=== PATIENT | female | born 1990 | race Hispanic/Latino ===

== ENCOUNTER 2018-08-31 07:22 | Emergency (ER) | payer SELFPAY ==
[2018-08-31 07:58] LABS: BASOPHILS % (AUTO) 0.5 % (0.0-5.0); EOSINOPHILS % (AUTO) 3.9 % (0.0-8.0); HEMATOCRIT 42.1 % (36-48); LYMPHOCYTES % (AUTO) 32.7 % (21.0-51.0); MEAN CORPUSCULAR HEMOGLOBIN 30.6 pg (27.0-33.0); MEAN CORPUSCULAR HGB CONC 34.3 g/dL (32.0-36.0); MEAN CORPUSCULAR VOLUME 89.4 fL (79-99); MONOCYTES % (AUTO) 5.4 % (3.0-13.0); NEUTROPHILS % (AUTO) 57.5 % (40.0-77.0); PLATELET COUNT (AUTO) 218 K/uL (130-400); RED BLOOD CELL COUNT(AUTO) 4.71 MIL/uL (4.00-5.50); WHITE BLOOD COUNT (AUTO) 13.3 K/uL (4.8-10.8)
[2018-08-31 08:02] LABS: APPEARANCE,URINE Clear (CLEAR); BILIRUBIN,URINE Negative (NEGATIVE); COLOR,URINE Yellow (YELLOW); GLUCOSE, URINE (UA) Negative (NEGATIVE); KETONES,URINE Negative (NEGATIVE); LEUKOCYTE ESTERASE ,URINE Moderate (NEGATIVE); NITRATE,URINE Negative (NEGATIVE); OCCULT BLOOD,URINE Negative (NEGATIVE); PROTEIN,URINE Negative (NEGATIVE)
[2018-08-31 08:07] LABS: CREATININE 0.9 mg/dL (0.5-1.5); POTASSIUM 3.5 mmol/L (3.5-5.1)
[2018-08-31 08:08] LABS: HCG,QUAL RESULT NEGATIVE (NEGATIVE)
[2018-08-31 08:14] LABS: ALBUMIN 3.7 g/dL (3.5-5.0); BILIRUBIN,TOTAL 0.2 mg/dL (0.2-1.0); TOTAL PROTEIN, SERUM 7.3 g/dL (6.0-8.3)
[2018-08-31 08:16] LABS: BACTERIA,URINE Rare /HPF (None Seen); RBC,URINE 0-1 /HPF (0-1); SQUAMOUS EPITHELIAL CELL,UR Few /HPF (0-2)
[2018-08-31] MEDS ORDERED: CEFTRIAXONE SODIUM 500 MG VIAL ONE (08:44)
[2018-08-31] MEDS ORDERED: AZITHROMYCIN 250 MG TABLET PO ONE (08:45)
[2018-08-31] MEDS ORDERED: LIDOCAINE HCL-MPF 1% 2ML VIAL ONE (08:47)
== END 2018-08-31 09:24 | disposition home or self-care (01) ==
LOC: EDH 07:22
DX: N39.0 Urinary tract infection, site not specified (principal); Z87.891 Personal history of nicotine dependence
CPT/HCPCS: 36415; 80053; 81001; 81025; 82150; 82550; 83690; 84484; 85025; 87088; 87210; 87486; 87797; 93005; 96372; 99284; J0696; J3490

== ENCOUNTER 2019-02-07 11:48 | Emergency (ER) | payer OTHER ==
[2019-02-07] MEDS ORDERED: MAG HYDROX/AL HYDROX/SIMETH ES 30 ML SUSP UDCUP ONE (12:24)
[2019-02-07 12:39] LABS: BASOPHILS % (AUTO) 0.4 % (0.0-5.0); LYMPHOCYTES % (AUTO) 25.5 % (21.0-51.0); MEAN CORPUSCULAR HEMOGLOBIN 30.5 pg (27.0-33.0); MEAN CORPUSCULAR HGB CONC 34.2 g/dL (32.0-36.0); MEAN CORPUSCULAR VOLUME 89.3 fL (79-99); MONOCYTES % (AUTO) 3.9 % (3.0-13.0); NEUTROPHILS % (AUTO) 67.2 % (40.0-77.0); NUCLEATED RED BLOOD CELLS 0.1 % (0.0-0.19); PLATELET COUNT (AUTO) 225 K/uL (130-400); RED BLOOD CELL COUNT(AUTO) 4.82 MIL/uL (4.00-5.50); RED CELL DISTRIBUTION WIDTH 13.4 % (11.0-15.5); WHITE BLOOD COUNT (AUTO) 11.5 K/uL (4.8-10.8)
[2019-02-07 12:47] LABS: CREATININE 0.8 mg/dL (0.5-1.5); POTASSIUM 3.9 mmol/L (3.5-5.1)
[2019-02-07 12:50] LABS: APPEARANCE,URINE Clear (CLEAR); BILIRUBIN,URINE Negative (NEGATIVE); COLOR,URINE Yellow (YELLOW); GLUCOSE, URINE (UA) Negative (NEGATIVE); KETONES,URINE Negative (NEGATIVE); LEUKOCYTE ESTERASE ,URINE Small (NEGATIVE); NITRATE,URINE Negative (NEGATIVE); OCCULT BLOOD,URINE Negative (NEGATIVE); PROTEIN,URINE Negative (NEGATIVE); UROBILINOGEN,URINE 0.2 mg/dL (0.2-1.0)
[2019-02-07 12:51] LABS: ALBUMIN 3.9 g/dL (3.5-5.0); BILIRUBIN,TOTAL 0.4 mg/dL (0.2-1.0); TOTAL PROTEIN, SERUM 7.4 g/dL (6.0-8.3)
[2019-02-07 13:25] LABS: BACTERIA,URINE Few /HPF (None Seen); RBC,URINE None Seen /HPF (0-1); WBC,URINE 0-1 /HPF (0-1)
[2019-02-07 13:29] LABS: HCG,QUAL RESULT NEGATIVE (NEGATIVE)
== END 2019-02-07 13:56 | disposition home or self-care (01) ==
LOC: EDH 11:48
DX: K29.00 Acute gastritis without bleeding (principal); Z72.0 Tobacco use
CPT/HCPCS: 36415; 80053; 81001; 81025; 82150; 83690; 85025

== ENCOUNTER 2020-09-10 11:39 | Emergency (ER) | payer SELFPAY | END 2020-09-10 13:08 | disposition left against medical advice (07) | LOC: EDH 11:39 | DX: R10.9 Unspecified abdominal pain (principal); Z53.21 Procedure and treatment not carried out due to patient leaving prior to being seen by health care provider ==

== ENCOUNTER 2022-03-02 18:41 | Emergency (ER) | payer OTHER ==
[2022-03-02] MEDS ORDERED: 0.9%NACL 1000ML 1,000 ML IV SCH (19:00)
[2022-03-02] MEDS ORDERED: 0.9%NACL 1000ML 1,000 ML IV ONE (19:00)
[2022-03-02 20:03] LABS: BASOPHILS % (AUTO) 0.3 % (0.0-5.0); EOSINOPHILS % (AUTO) 0.8 % (0.0-8.0); HEMATOCRIT 50.9 % (36-48); LYMPHOCYTES % (AUTO) 16.9 % (21.0-51.0); MEAN CORPUSCULAR HEMOGLOBIN 30.3 pg (27.0-33.0); MEAN CORPUSCULAR HGB CONC 34.6 g/dL (32.0-36.0); MEAN CORPUSCULAR VOLUME 87.8 fL (79-99); MONOCYTES % (AUTO) 3.6 % (3.0-13.0); NEUTROPHILS % (AUTO) 77.9 % (40.0-77.0); PLATELET COUNT (AUTO) 279 K/uL (130-400); RED CELL DISTRIBUTION WIDTH 12.9 % (11.0-15.5); WHITE BLOOD COUNT (AUTO) 19.2 K/uL (4.8-10.8)
[2022-03-02 20:13] LABS: CREATININE 1.3 mg/dL (0.5-1.5); POTASSIUM 4.1 mmol/L (3.5-5.1)
[2022-03-02 20:18] LABS: ALBUMIN 3.5 g/dL (3.5-5.0); TOTAL PROTEIN, SERUM 6.4 g/dL (6.0-8.3)
[2022-03-02 21:55] LABS: APPEARANCE,URINE CLOUDY (CLEAR); BILIRUBIN,URINE NEGATIVE (NEGATIVE); COLOR,URINE YELLOW (YELLOW); GLUCOSE, URINE (UA) NEGATIVE (NEGATIVE); KETONES,URINE NEGATIVE (NEGATIVE); LEUKOCYTE ESTERASE ,URINE 75 Leu/uL (NEGATIVE); NITRATE,URINE NEGATIVE (NEGATIVE); OCCULT BLOOD,URINE NEGATIVE (NEGATIVE); PH,URINE 6.5 (5.0-8.0); PROTEIN,URINE 10 mg/dL (NEGATIVE)
[2022-03-02 21:56] LABS: HCG,QUALITATIVE URINE NEGATIVE (NEGATIVE)
[2022-03-02 22:00] LABS: BACTERIA,URINE RARE /HPF (None Seen); HYALINE CASTS, URINE 0-1 /LPF (0-1 /LPF); MUCUS,URINE RARE LPF (None Seen); SQUAMOUS EPITHELIAL CELL,UR FEW /HPF (0-2)
[2022-03-02] MEDS ORDERED: 0.9%NACL 1000ML 2,500 ML IV ONE (22:00)
[2022-03-02] MEDS ORDERED: SULF1TAB42 PO (22:09)
[2022-03-02] MEDS ORDERED: CEFTRIAXONE 1G VIAL IVP ONE (22:30)
[2022-03-02] MEDS ORDERED: ACETAMINOPHEN 325 MG TAB ONE (22:40)
[2022-03-02] MEDS ORDERED: ACETAMINOPHEN 325 MG TAB PO ONE (23:00)
[2022-03-03] VITALS: BP 105/60
== END 2022-03-03 00:11 | disposition home or self-care (01) ==
LOC: EDH 18:41
DX: N39.0 Urinary tract infection, site not specified (principal); R55 Syncope and collapse
CPT/HCPCS: 99285; 96374; 96361; 70450; 71045; 84484; 80053; 85025; 85378; 87088; 81001; 81025; 36415; 93005 ×2; J7030; J0696

== ENCOUNTER 2023-02-10 23:28 | Emergency (ER) | payer OTHER ==
[~2023-02-10] VITALS: Ht 154.9 cm; Wt 93.0 kg
[~2023-02-10 23:28] MED LIST: SULF1TAB42 PO
[2023-02-11] MEDS ORDERED: 0.9%NACL 1000ML 1,000 ML IV ONE ×2 (01:00→02:00)
[2023-02-11] MEDS ORDERED: ONDANSETRON 4MG INJ IVP ONE (01:00)
[2023-02-11 01:16] LABS: BASOPHILS # (AUTO) 0.03 K/uL (0.00-0.20); BASOPHILS % (AUTO) 0.2 % (0.0-5.0); EOSINOPHILS # (AUTO) 0.03 K/uL (0.00-0.70); EOSINOPHILS % (AUTO) 0.2 % (0.0-8.0); HEMATOCRIT 42.5 % (36-48); IMMATURE GRANULOCYTE ABSOLUTE 0.04 K/uL (0-1); LYMPHOCYTES # (AUTO) 2.6 K/uL (1.0-4.8); MEAN CORPUSCULAR HEMOGLOBIN 29.9 pg (27.0-33.0); MEAN CORPUSCULAR HGB CONC 34.4 g/dL (32.0-36.0); MEAN CORPUSCULAR VOLUME 86.9 fL (79-99); MONOCYTES # (AUTO) 0.7 K/uL (0.1-1.0); MONOCYTES % (AUTO) 4.4 % (3.0-13.0); NEUTROPHILS % (AUTO) 77.9 % (40.0-77.0); PLATELET COUNT (AUTO) 260 K/uL (130-400); RED BLOOD CELL COUNT(AUTO) 4.89 MIL/uL (4.00-5.50); RED CELL DISTRIBUTION WIDTH 12.5 % (11.0-15.5); WHITE BLOOD COUNT (AUTO) 15.4 K/uL (4.8-10.8)
[2023-02-11 01:23] LABS: CREATININE 0.9 mg/dL (0.5-1.5); POTASSIUM 3.5 mmol/L (3.5-5.1)
[2023-02-11 01:26] LABS: APPEARANCE,URINE CLOUDY (CLEAR); BILIRUBIN,URINE NEGATIVE (NEGATIVE); COLOR,URINE LIGHT-ORANGE (YELLOW); GLUCOSE, URINE (UA) NEGATIVE (NEGATIVE); KETONES,URINE NEGATIVE (NEGATIVE); LEUKOCYTE ESTERASE ,URINE 500 Leu/uL (NEGATIVE); NITRATE,URINE NEGATIVE (NEGATIVE); OCCULT BLOOD,URINE LARGE (NEGATIVE); PROTEIN,URINE 30 mg/dL (NEGATIVE); UROBILINOGEN,URINE 0.2 mg/dL (0.2-1.0)
[2023-02-11 01:27] LABS: ADD UA MICROSCOPIC YES
[2023-02-11 01:28] LABS: BACTERIA,URINE RARE /HPF (None Seen); HCG,QUALITATIVE URINE NEGATIVE (NEGATIVE); RBC,URINE TNTC /HPF (0-1); SQUAMOUS EPITHELIAL CELL,UR FEW /HPF (0-2); WBC,URINE 51-100 /HPF (0-1)
[2023-02-11 01:28] LABS: ALBUMIN 4.1 g/dL (3.5-5.0); BILIRUBIN,TOTAL 0.2 mg/dL (0.2-1.0)
[2023-02-11 01:31] LABS: SARS-CoV-2, RNA, NAAT NEGATIVE SARS CoV-2 (NEGATIVE)
[2023-02-11 01:34] LABS: INFLUENZA TYPE A Negative For Type A (NEGATIVE); INFLUENZA TYPE B Negative For Type B (NEGATIVE)
[2023-02-11] MEDS ORDERED: FAMOTIDINE 20MG VIAL IV ONE (02:00)
[2023-02-11] MEDS ORDERED: MORPHINE 4 MG SYG IVP ONE (02:00)
[2023-02-11] MEDS ORDERED: CEPH500B PO (03:02)
[2023-02-11] MEDS ORDERED: PANT40TA PO (03:02)
[2023-02-11] MEDS ORDERED: METO-296 PO (03:02)
[2023-02-11 03:11] VITALS: BP 127/76; PULSE 81; RESP 16; O2SAT 98
[2023-02-11] MEDS ORDERED: CEFTRIAXONE 2GM VIAL IVPB ONE (03:30)
== END 2023-02-11 03:43 | disposition home or self-care (01) ==
LOC: EDH 23:28
DX: N39.0 Urinary tract infection, site not specified (principal); K29.70 Gastritis, unspecified, without bleeding; F17.200 Nicotine dependence, unspecified, uncomplicated; J45.909 Unspecified asthma, uncomplicated; Z20.822 Contact with and (suspected) exposure to COVID-19
CPT/HCPCS: 99285; 87635; 84484; 80053; 83690; 85025; 87088; 87804 ×2; 81001; 81025; 36415; 96365; 96375; 76705; 71045; 93005; C9803; J3490; J0696; J2405; J2270

== ENCOUNTER 2023-06-24 22:48 | Emergency (ER) | payer OTHER ==
[~2023-06-24] VITALS: Ht 154.9 cm; Wt 90.7 kg
[~2023-06-24 22:48] MED LIST changes: +CEPH500B PO; +METO-296 PO; +PANT40TA PO
[2023-06-24] MEDS ORDERED: ONDANSETRON ODT 4MG TAB SL ONE (23:00)
[2023-06-24] MEDS ORDERED: KETOROLAC 15MG/ML VIAL (15MG/ML) IM ONE (23:00)
[2023-06-24 23:15] LABS: BASOPHILS # (AUTO) 0.05 K/uL (0.00-0.20); BASOPHILS % (AUTO) 0.4 % (0.0-5.0); EOSINOPHILS % (AUTO) 2.2 % (0.0-8.0); HEMATOCRIT 43.5 % (36-48); IMMATURE GRANULOCYTE ABSOLUTE 0.04 K/uL (0-1); LYMPHOCYTES # (AUTO) 5.7 K/uL (1.0-4.8); MEAN CORPUSCULAR HEMOGLOBIN 29.5 pg (27.0-33.0); MEAN CORPUSCULAR HGB CONC 34.7 g/dL (32.0-36.0); MONOCYTES # (AUTO) 0.6 K/uL (0.1-1.0); MONOCYTES % (AUTO) 4.7 % (3.0-13.0); NEUTROPHILS # (AUTO) 6.8 K/uL (1.8-7.7); NEUTROPHILS % (AUTO) 50.4 % (40.0-77.0); PLATELET COUNT (AUTO) 283 K/uL (130-400); RED BLOOD CELL COUNT(AUTO) 5.12 MIL/uL (4.00-5.50); RED CELL DISTRIBUTION WIDTH 12.5 % (11.0-15.5); WHITE BLOOD COUNT (AUTO) 13.5 K/uL (4.8-10.8)
[2023-06-24 23:25] LABS: CREATININE 0.9 mg/dL (0.5-1.5); POTASSIUM 3.7 mmol/L (3.5-5.1)
[2023-06-24 23:30] LABS: ALBUMIN 3.8 g/dL (3.5-5.0); BILIRUBIN,TOTAL 0.2 mg/dL (0.2-1.0); TOTAL PROTEIN, SERUM 7.6 g/dL (6.0-8.3)
[2023-06-24 23:48] LABS: APPEARANCE,URINE CLOUDY (CLEAR); BILIRUBIN,URINE NEGATIVE (NEGATIVE); COLOR,URINE LIGHT-YELLOW (YELLOW); GLUCOSE, URINE (UA) NEGATIVE (NEGATIVE); KETONES,URINE NEGATIVE (NEGATIVE); LEUKOCYTE ESTERASE ,URINE 75 Leu/uL (NEGATIVE); NITRATE,URINE NEGATIVE (NEGATIVE); OCCULT BLOOD,URINE LARGE (NEGATIVE); PROTEIN,URINE 10 mg/dL (NEGATIVE); UROBILINOGEN,URINE 0.2 mg/dL (0.2-1.0)
[2023-06-24 23:51] LABS: ADD UA MICROSCOPIC YES; HCG,QUALITATIVE URINE NEGATIVE (NEGATIVE)
[2023-06-24 23:53] LABS: RBC,URINE TNTC /HPF (0-1); SQUAMOUS EPITHELIAL CELL,UR MOD /HPF (0-2); UNCLASSIFIED CRYSTAL 6 /HPF (None Seen)
[2023-06-25] MEDS ORDERED: CEFTRIAXONE 1G VIAL IVPB ONE (00:30)
[2023-06-25] MEDS ORDERED: ONDANSETRON 4MG INJ IVP ONE (01:00)
[2023-06-25] MEDS ORDERED: MORPHINE 4 MG SYG IVP ONE (01:00)
[2023-06-25 01:12] LABS: BASOPHILS % (MANUAL) 1 % (0-2); LYMPHOCYTES % (MANUAL) 45 % (22-44); MAN.DIFF COMMENT-IMPRESSION MANUAL DIFFERENTIAL; MONOCYTES % (MANUAL) 4 % (2-9); SEGMENTED NEUTROPHILS % 50 % (40-70); TOTAL CELLS COUNTED 100
[2023-06-25] MEDS ORDERED: IOHEXOL-350 75 ML VIAL IV ONE (01:25)
[2023-06-25] MEDS ORDERED: TAMS-1 PO (02:45)
[2023-06-25] MEDS ORDERED: IBUP-1493 PO (02:45)
[2023-06-25 02:49] VITALS: BP 141/80; PULSE 80; RESP 14; O2SAT 98
== END 2023-06-25 02:57 | disposition home or self-care (01) ==
LOC: EDH 22:48
DX: N13.2 Hydronephrosis with renal and ureteral calculous obstruction (principal); F17.200 Nicotine dependence, unspecified, uncomplicated; J45.909 Unspecified asthma, uncomplicated; Z79.899 Other long term (current) drug therapy; Z98.890 Other specified postprocedural states
CPT/HCPCS: 99285; 84484; 80053; 83690; 85025; 87088; 81001; 81025; 36415; 93005; 74178; 96374; 96375; 96372; J0696; J2405; J2270; J1885; Q9967

== ENCOUNTER 2023-12-12 22:33 | Emergency (ER) | payer BC ==
[~2023-12-12] VITALS: Ht 154.9 cm; Wt 90.7 kg
[~2023-12-12 22:33] MED LIST changes: +AZIT250T9 PO; +IBUP-1493 PO; +PRED20TA3 PO; +TAMS-1 PO
[2023-12-12] MEDS: KETOROLAC 15MG/ML VIAL (15MG/ML) IM STA (23:29)
[2023-12-12 23:31] LABS: BASOPHILS # (AUTO) 0.04 K/uL (0.00-0.20); BASOPHILS % (AUTO) 0.3 % (0.0-5.0); EOSINOPHILS # (AUTO) 0.35 K/uL (0.00-0.70); EOSINOPHILS % (AUTO) 2.7 % (0.0-8.0); HEMATOCRIT 42.7 % (36-48); IMMATURE GRANULOCYTE ABSOLUTE 0.03 K/uL (0-1); LYMPHOCYTES # (AUTO) 4.2 K/uL (1.0-4.8); LYMPHOCYTES % (AUTO) 32.3 % (21.0-51.0); MEAN CORPUSCULAR HEMOGLOBIN 29.7 pg (27.0-33.0); MEAN CORPUSCULAR HGB CONC 34.2 g/dL (32.0-36.0); MONOCYTES # (AUTO) 0.7 K/uL (0.1-1.0); MONOCYTES % (AUTO) 5.2 % (3.0-13.0); NEUTROPHILS # (AUTO) 7.7 K/uL (1.8-7.7); NEUTROPHILS % (AUTO) 59.3 % (40.0-77.0); PLATELET COUNT (AUTO) 221 K/uL (130-400); RED BLOOD CELL COUNT(AUTO) 4.91 MIL/uL (4.00-5.50); RED CELL DISTRIBUTION WIDTH 12.4 % (11.0-15.5); WHITE BLOOD COUNT (AUTO) 12.9 K/uL (4.8-10.8)
[2023-12-12 23:41] LABS: CREATININE 0.8 mg/dL (0.5-1.0); POTASSIUM 3.8 mmol/L (3.5-5.1)
[2023-12-12 23:51] LABS: ALBUMIN 3.7 g/dL (3.5-5.0); BILIRUBIN,TOTAL 0.5 mg/dL (0.2-1.0); TOTAL PROTEIN, SERUM 7.2 g/dL (6.0-8.3)
[2023-12-13 00:23] LABS: ADD UA MICROSCOPIC NO; APPEARANCE,URINE CLEAR (CLEAR); BILIRUBIN,URINE NEGATIVE (NEGATIVE); COLOR,URINE YELLOW (YELLOW); GLUCOSE, URINE (UA) NEGATIVE (NEGATIVE); KETONES,URINE NEGATIVE (NEGATIVE); LEUKOCYTE ESTERASE ,URINE NEGATIVE Leu/uL (NEGATIVE); NITRATE,URINE NEGATIVE (NEGATIVE); OCCULT BLOOD,URINE NEGATIVE (NEGATIVE); PH,URINE 5.5 (5.0-8.0); PROTEIN,URINE NEGATIVE (NEGATIVE); UROBILINOGEN,URINE 0.2 mg/dL (0.2-1.0)
[2023-12-13] MEDS ORDERED: KETO10TA2 PO (01:39)
[2023-12-13] MEDS ORDERED: TAMS-1 PO (01:39)
[2023-12-13 02:05] VITALS: BP 145/95; PULSE 72; RESP 18; O2SAT 98
== END 2023-12-13 02:23 | disposition home or self-care (01) ==
LOC: EDH 22:33
DX: N20.0 Calculus of kidney (principal); R10.2 Pelvic and perineal pain; Z79.1 Long term (current) use of non-steroidal anti-inflammatories (NSAID); Z79.899 Other long term (current) drug therapy
CPT/HCPCS: 99285; 74176; 76705; 80053; 84702; 83690; 85025; 81003; 36415; 96372; J1885

== ENCOUNTER 2024-01-29 14:32 | Emergency (ER) | payer SELFPAY ==
[~2024-01-29] VITALS: Ht 154.9 cm; Wt 90.7 kg
[~2024-01-29 14:32] MED LIST changes: +KETO10TA2 PO
[2024-01-29 15:39] LABS: BASOPHILS # (AUTO) 0.04 K/uL (0.00-0.20); BASOPHILS % (AUTO) 0.3 % (0.0-5.0); EOSINOPHILS # (AUTO) 0.13 K/uL (0.00-0.70); EOSINOPHILS % (AUTO) 0.9 % (0.0-8.0); HEMATOCRIT 43.4 % (36-48); IMMATURE GRANULOCYTE ABSOLUTE 0.06 K/uL (0-1); LYMPHOCYTES # (AUTO) 3.9 K/uL (1.0-4.8); LYMPHOCYTES % (AUTO) 25.8 % (21.0-51.0); MEAN CORPUSCULAR HEMOGLOBIN 30.3 pg (27.0-33.0); MEAN CORPUSCULAR HGB CONC 34.6 g/dL (32.0-36.0); MEAN CORPUSCULAR VOLUME 87.7 fL (79-99); MONOCYTES # (AUTO) 0.8 K/uL (0.1-1.0); MONOCYTES % (AUTO) 5.2 % (3.0-13.0); NEUTROPHILS # (AUTO) 10.3 K/uL (1.8-7.7); NEUTROPHILS % (AUTO) 67.4 % (40.0-77.0); PLATELET COUNT (AUTO) 253 K/uL (130-400); RED BLOOD CELL COUNT(AUTO) 4.95 MIL/uL (4.00-5.50); WHITE BLOOD COUNT (AUTO) 15.2 K/uL (4.8-10.8)
[2024-01-29 15:48] LABS: CREATININE 0.9 mg/dL (0.5-1.0); POTASSIUM 4.1 mmol/L (3.5-5.1)
[2024-01-29 15:52] LABS: ALBUMIN 3.9 g/dL (3.5-5.0); BILIRUBIN,TOTAL 0.4 mg/dL (0.2-1.0); TOTAL PROTEIN, SERUM 7.5 g/dL (6.0-8.3)
[2024-01-29 17:23] VITALS: BP 132/65; PULSE 78; RESP 18; TEMP 98.8; O2SAT 97
== END 2024-01-29 17:44 | disposition home or self-care (01) ==
LOC: EDH 14:32
DX: O26.899 Other specified pregnancy related conditions, unspecified trimester (principal); M94.0 Chondrocostal junction syndrome [Tietze]; Z79.899 Other long term (current) drug therapy; Z87.442 Personal history of urinary calculi
CPT/HCPCS: 36415; 80053; 81025; 83735; 84484; 84703; 85025; 93005

== ENCOUNTER 2024-05-17 00:17 | Emergency (ER) | payer MEDICAID ==
[~2024-05-17] VITALS: Ht 154.9 cm; Wt 96.2 kg
[2024-05-17 00:55] LABS: BASOPHILS # (AUTO) 0.05 K/uL (0.00-0.20); BASOPHILS % (AUTO) 0.3 % (0.0-5.0); EOSINOPHILS # (AUTO) 0.15 K/uL (0.00-0.70); EOSINOPHILS % (AUTO) 0.9 % (0.0-8.0); HEMATOCRIT 41.1 % (36-48); IMMATURE GRANULOCYTE ABSOLUTE 0.07 K/uL (0-1); LYMPHOCYTES # (AUTO) 2.7 K/uL (1.0-4.8); LYMPHOCYTES % (AUTO) 16.6 % (21.0-51.0); MEAN CORPUSCULAR HGB CONC 34.5 g/dL (32.0-36.0); MEAN CORPUSCULAR VOLUME 86.9 fL (79-99); MONOCYTES # (AUTO) 0.7 K/uL (0.1-1.0); MONOCYTES % (AUTO) 4.2 % (3.0-13.0); NEUTROPHILS # (AUTO) 12.7 K/uL (1.8-7.7); NEUTROPHILS % (AUTO) 77.6 % (40.0-77.0); PLATELET COUNT (AUTO) 239 K/uL (130-400); RED BLOOD CELL COUNT(AUTO) 4.73 MIL/uL (4.00-5.50); WHITE BLOOD COUNT (AUTO) 16.3 K/uL (4.8-10.8)
[2024-05-17] MEDS: 0.9%NACL 1000ML 1,000 ML IV SCH (01:08)
[2024-05-17] MEDS: PANTOPrazole 40 MG/VIAL IVP ONE (01:08)
--- NOTE | 2024-05-17 01:09 | ERN ---
ED Note History of Present Illness Stated Complaint: VOMITING, FEELS ANXIOUS AND IS HAVING CP/HEARTBURN Chief Complaint: Vomiting in Time Seen by MD: 00:45 Dictation: Patient is a 33-year-old female 21 weeks who presents to the ER after 1 episode of throwing up, she was afraid, reason why she came to the ER. She said that she has a history of gastritis, but was afraid to take medication for the vomit/nausea because she is . She believes that the vomiting was related to Krishna salad that she ate, reports that it was very acid. She does report a heartburn. Otherwise she denies fever, chills, chest pain, abdominal pain. Allergies: Coded Allergies: No Known Allergies (Unverified Allergy, Unknown, 02/07/19) Home Meds Active Scripts Ketorolac Tromethamine (Ketorolac Tromethamine) 10 Mg Tablet, 10 MG PO QIDP PRN for PAIN for 5 Days, #20 TAB Prov:PK MILLER NP 12/13/23 Tamsulosin HCl (Flomax) 0.4 Mg Cap.er.24h, 0.4 MG PO DAILY for 30 Days, #30 CAPSULE. Prov:PK MILLER NP 12/13/23 Prednisone (Prednisone) 20 Mg Tablet, 1 TAB PO AD for 6 Days, #14 TAB 0 Refills TAKE 1 TAB BY MOUTH THREE TIMES PER DAY X3 DAYS, THEN TAKE 1 TAB BY MOUTH TWICE A DAY X2 DAYS, THEN TAKE 1 TAB BY MOUTH ONCE A DAY X1 DAY. Prov:KEVIN ASTORGA MD 11/09/23 Azithromycin (Azithromycin) 250 Mg Tablet, 250 MG PO DAILY for 5 Days, #5 TAB Prov:KEVIN ASTORGA MD 11/09/23 Ibuprofen (Motrin/Advil) 800 Mg Tab, 800 MG PO TID, #30 TAB Prov:RASTA EDMONDSON MD 06/25/23 Tamsulosin HCl (Flomax) 0.4 Mg Cap.er.24h, 0.4 MG PO DAILY, #10 CAPSULE. Prov:RASTA EDMONDSON MD 06/25/23 Cephalexin Monohydrate (Keflex) 500 Mg Cap, 500 MG PO QID for 10 Days, #40 CAP 2 Refills Prov:MANN JOSUE Sr., MD 02/11/23 Metoclopramide HCl (Reglan) 10 Mg Tablet, 10 MG PO QID, #120 TAB 2 Refills Prov:MANN JOSUE Sr., MD 02/11/23 Pantoprazole Sodium (Protonix) 40 Mg Tablet.dr, 40 MG PO DAILY, #30 TAB 2 Refills Prov:MANN JOSUE Sr., MD 02/11/23 Sulfamethoxazole/Trimethoprim (Bactrim Ds Tablet) 1 Each Tablet, 1 TAB PO BID for 7 Days, #14 TAB 0 Refills Prov:RASTA EDMONDSON MD 03/02/22 Past Medical History Past Medical History: Other Additional Past Medical Hx: GESTATIONAL DIABETES Surgical History: None Family History: Negative Social History: Negative History: Not Applicable LMP: Dec 23, 2023 : 3 Para: 2 Review of System Dictation NEGATIVE EXCEPT PER HPI Constitutional: Negative for fever,chills, and weight loss Eyes: Negative for injury, pain,redness, and discharge ENT: Negative for injury,pain or swelling Cardiovascular: denies chest pain, palpitations, and edema Respiratory: Negative for shortness of breath, cough, and wheezing, Abdomen/GI: Reports nausea and vomiting once Back: Negative for injury and pain : Negative for injury, bleeding and discharge MS/Extremity: Negative for injury and deformity Skin: Negative for rash, and discoloration Neuro: Negative for headache, weakness, numbness, tingling, and seizure Psych: Negative for suicide ideation, homicidal ideation, and hallucinations Initial Vital Sign VS Vital Signs Date Time Temp Pulse Resp B/P (MAP) Pulse Ox O2 Delivery O2 Flow Rate FiO2 05/17/24 00:21 97.9 93 16 137/87 100 Room Air 05/17/24 01:39 0 21 Physical Exam Dictation General: awake, alert, NAD Head/Face: Normocephalic, atraumatic Eyes: PERRL, EOMI, vision at baseline ENT: oral cavity clear, TMs clear, no signs of infection Neck: Trachea midline, supple, no nuchal rigidity Cardiovascular: RRR, normal S1/S2, No MRGs, no JVD Respiratory: CTAB, no respiratory distress, No rales or wheezes Abdomen: Soft , no tender Skin: Warm, dry, normal turgor, no rash MS/Extremity: Pulses equal, no cyanosis, neurovascular intact, FROM Neuro: COAx4, GCS 15, strength 5/5, CN 2-12 intact, normal cerebellar exam, normal gait, Psych: Normal behavior, mood, and affect normal Results (Laboratory/Radiology) Laboratory/Radiology Laboratory Tests Test 05/17/24 00:44 White Blood Count 16.3 K/uL (4.8-10.8) H Red Blood Count 4.73 MIL/uL (4.00-5.50) Hemoglobin 14.2 g/dL (12.0-16.0) Hematocrit 41.1 % (36-48) Mean Corpuscular Volume 86.9 fL (79-99) Mean Corpuscular Hemoglobin 30.0 pg (27.0-33.0) Mean Corpuscular Hemoglobin Concent 34.5 g/dL (32.0-36.0) Red Cell Distribution Width 13.0 % (11.0-15.5) Platelet Count 239 K/uL (130-400) Mean Platelet Volume 9.8 fL (7.5-10.5) Immature Granulocyte % (Auto) 0.4 % (0-1) Neutrophils (%) (Auto) 77.6 % (40.0-77.0) H Lymphocytes (%) (Auto) 16.6 % (21.0-51.0) L Monocytes (%) (Auto) 4.2 % (3.0-13.0) Eosinophils (%) (Auto) 0.9 % (0.0-8.0) Basophils (%) (Auto) 0.3 % (0.0-5.0) Neutrophils # (Auto) 12.7 K/uL (1.8-7.7) H Lymphocytes # (Auto) 2.7 K/uL (1.0-4.8) Monocytes # (Auto) 0.7 K/uL (0.1-1.0) Eosinophils # (Auto) 0.15 K/uL (0.00-0.70) Basophils # (Auto) 0.05 K/uL (0.00-0.20) Absolute Immature Granulocyte (auto 0.07 K/uL (0-1) Nucleated Red Blood Cells 0.0 % (0.0-0.19) Sodium Level 140 mmol/L (136-145) Potassium Level 3.7 mmol/L (3.5-5.1) Chloride Level 101 mmol/L (101-111) Carbon Dioxide Level 26 mmol/L (21-32) Blood Urea Nitrogen 13 mg/dL (7-18) Creatinine 0.7 mg/dL (0.5-1.0) Glomerular Filtration Rate Calc 117 mL/min (>90) Random Glucose 113 mg/dL (70-105) H Total Calcium 10.0 mg/dL (8.5-10.1) Human Chorionic Gonadotropin, Quant 01543 mIU/mL (0-5) H ED Course ED Course Orders Procedure Category Date Status Time Cbc With Differential LAB 05/17/24 Complete 00:45 Basic Metabolic Panel LAB 05/17/24 Complete 00:45 Hcg,Quantitative LAB 05/17/24 Complete 00:45 0.9%Nacl 1000ml (Ns PHA 05/17/24 In Process 1000ml) 01:00 Pantoprazole 40mg Inj PHA 05/17/24 Complete (Protonix 40mg Inj 01:30 Urinalysis LAB 05/17/24 In Process W/Microscopic 00:45 Us Ob >14 Weeks US 05/17/24 Taken 02:11 Current Medications Medications (Trade) Dose Ordered Sig/Delores Route PRN Reason Start Time Stop Time Status Last Admin Dose Admin Pantoprazole Sodium (PROTonix 40MG INJ) 40 mg ONCE ONCE IVP 05/17/24 01:30 05/17/24 01:31 DC 05/17/24 01:08 Sodium Chloride 1,000 ml @ 150 mls/hr [id number] IV 05/17/24 01:00 06/16/24 00:59 05/17/24 01:08 Vital Signs Date Time Temp Pulse Resp B/P (MAP) Pulse Ox O2 Delivery O2 Flow Rate FiO2 05/17/24 01:39 98.2 75 18 125/65 100 Room Air* 0 21 05/17/24 00:21 97.9 93 16 137/87 100 Room Air Medical Decision Making MDM Patient is a 33-year-old female 21 weeks who presents to the ER after 1 episode of throwing up, she was afraid, reason why she came to the ER. She said that she has a history of gastritis, but was afraid to take medication for the vomit/nausea because she is . She believes that the vomiting was related to Krishna salad that she ate, reports that it was very acid. She does report a heartburn. Otherwise she denies fever, chills, chest pain, abdominal pain. Ordered laboratory workup including CBC, CMP, UA 1 L IV fluids ordered. Pantoprazole 40 mg IV once Ob ultrasound performed it is within normal limits(patient was very anxious regarding results of ultrasound, I explained to her that everything looks normal, patient will be discharged home.) Patient will be re-evaluate, if she mentioned or complaining of abdominal pain we will proceed with Ob ultrasound otherwise patient will be monitoring and discharged home. I explained to her that likely her symptoms was due to acute gastritis, anxiety. Patient said she follow up with her OBGYN tomorrow DX & DISP Disposition: Discharge Departure Impression: Primary Impression: Gastritis Additional Impressions: , Anxiety Condition: Stable Additional Instructions: RETURN TO ER FOR ANY ACUTE OR WORSENING SYMPTOMS. FOLLOW-UP IN 1-2 DAYS WITH PRIMARY PROVIDER FOR RECHECK OF TODAY'S SYMPTOMS. Referrals: HARRIET HANNA MD (PCP) BAEL ORTA MD May 17, 2024 01:09
[2024-05-17 01:28] LABS: CREATININE 0.7 mg/dL (0.5-1.0); POTASSIUM 3.7 mmol/L (3.5-5.1)
[2024-05-17 03:40] VITALS: BP 123/60; PULSE 70; RESP 18; TEMP 98.3; O2SAT 100
[2024-05-17 03:58] LABS: APPEARANCE,URINE CLEAR (CLEAR); BACTERIA,URINE RARE /HPF (None Seen); BILIRUBIN,URINE NEGATIVE (NEGATIVE); COLOR,URINE LIGHT-YELLOW (YELLOW); GLUCOSE, URINE (UA) NEGATIVE (NEGATIVE); KETONES,URINE 40 mg/dL (NEGATIVE); LEUKOCYTE ESTERASE ,URINE 25 Leu/uL (NEGATIVE); NITRATE,URINE NEGATIVE (NEGATIVE); OCCULT BLOOD,URINE NEGATIVE (NEGATIVE); PH,URINE 6.5 (5.0-8.0); PROTEIN,URINE NEGATIVE (NEGATIVE); SQUAMOUS EPITHELIAL CELL,UR MOD /HPF (0-2); UROBILINOGEN,URINE 0.2 mg/dL (0.2-1.0)
--- NOTE | 2024-05-17 08:18 | HMCIMG ---
US OB >14 WEEKS REASON: evalution of fetus , mother has vomit , 21 weeks pregnnacy COMPARISON: None TECHNIQUE: Routine pelvic sonogram was performed. FINDINGS: There is a single fetus in breech position with positive motion and heartbeat, 131 BPM. Composite gestational age is 20 weeks 3 days. Placenta is posterior and grade 0 with INGA 13.3 cm. Estimated weight is 344 g. Visualized anatomy appears unremarkable. IMPRESSION: 1. Single fetus 20 weeks 3 days composite gestational age, currently in breech position.
== END 2024-05-17 03:45 | disposition home or self-care (01) ==
LOC: EDH 00:17
DX: O99.612 Diseases of the digestive system complicating pregnancy, second trimester (principal); K29.70 Gastritis, unspecified, without bleeding; O99.342 Other mental disorders complicating pregnancy, second trimester; F41.9 Anxiety disorder, unspecified; R10.2 Pelvic and perineal pain; Z3A.20 20 weeks gestation of pregnancy; Z79.1 Long term (current) use of non-steroidal anti-inflammatories (NSAID); Z79.899 Other long term (current) drug therapy
CPT/HCPCS: 99285; 96374; 76805; 80048; 84702; 85025; 81001; 36415; J7030; J2470

== ENCOUNTER 2024-10-30 04:55 | Emergency (ER) | payer MEDICAID ==
[~2024-10-30] VITALS: Ht 154.9 cm; Wt 97.5 kg
[~2024-10-30 04:55] MED LIST changes: -TAMS-1 PO; +TAMS-55 PO
[2024-10-30] MEDS: 0.9%NACL 1000ML 1,000 ML IV ONE (05:10)
[2024-10-30 05:18] LABS: BASOPHILS # (AUTO) 0.04 K/uL (0.00-0.20); BASOPHILS % (AUTO) 0.3 % (0.0-5.0); EOSINOPHILS # (AUTO) 0.27 K/uL (0.00-0.70); HEMATOCRIT 44.3 % (36-48); IMMATURE GRANULOCYTE ABSOLUTE 0.04 K/uL (0-1); LYMPHOCYTES # (AUTO) 3.9 K/uL (1.0-4.8); LYMPHOCYTES % (AUTO) 28.5 % (21.0-51.0); MEAN CORPUSCULAR HEMOGLOBIN 28.8 pg (27.0-33.0); MEAN CORPUSCULAR HGB CONC 33.6 g/dL (32.0-36.0); MEAN CORPUSCULAR VOLUME 85.5 fL (79-99); MONOCYTES # (AUTO) 0.7 K/uL (0.1-1.0); MONOCYTES % (AUTO) 5.1 % (3.0-13.0); NEUTROPHILS # (AUTO) 8.6 K/uL (1.8-7.7); NEUTROPHILS % (AUTO) 63.8 % (40.0-77.0); PLATELET COUNT (AUTO) 251 K/uL (130-400); RED BLOOD CELL COUNT(AUTO) 5.18 MIL/uL (4.00-5.50); RED CELL DISTRIBUTION WIDTH 13.1 % (11.0-15.5); WHITE BLOOD COUNT (AUTO) 13.5 K/uL (4.8-10.8)
[2024-10-30 05:25] LABS: CREATININE 0.9 mg/dL (0.5-1.0); POTASSIUM 3.6 mmol/L (3.5-5.1)
[2024-10-30 05:25] LABS: APPEARANCE,URINE CLEAR (CLEAR); BILIRUBIN,URINE NEGATIVE (NEGATIVE); COLOR,URINE LIGHT-YELLOW (YELLOW); GLUCOSE, URINE (UA) NEGATIVE (NEGATIVE); KETONES,URINE NEGATIVE (NEGATIVE); LEUKOCYTE ESTERASE ,URINE 25 Leu/uL (NEGATIVE); MUCUS,URINE RARE LPF (None Seen); NITRATE,URINE NEGATIVE (NEGATIVE); OCCULT BLOOD,URINE NEGATIVE (NEGATIVE); PROTEIN,URINE NEGATIVE (NEGATIVE); RBC,URINE 0-1 /HPF (0-1); SQUAMOUS EPITHELIAL CELL,UR MOD /HPF (0-2); UROBILINOGEN,URINE 0.2 mg/dL (0.2-1.0)
[2024-10-30 05:26] LABS: HCG,QUALITATIVE URINE NEGATIVE (NEGATIVE)
[2024-10-30] MEDS: ibuPROFEN 600 MG TABLET PO ONE (05:44)
--- NOTE | 2024-10-30 06:08 | ERN ---
General Chief Complaint: Flank Pain Stated Complaint: RT FLANK PAIN Time Seen by MD: 04:58 Source: patient History of Present Illness Initial Comments PATIENT IS A 34-YEAR-OLD FEMALE COMING IN TO BE EVALUATED FOR RIGHT FLANK PAIN. PATIENT STATES THAT THIS HAS BEEN ONGOING FOR TWO DAYS. SHE STATES THAT THE FLANK PAIN BECOME SO INTENSE THAT IT TAKES HER BREATH AWAY. NO FEVER NO CHILLS NO NAUSEA NO VOMITING. PATIENT ALSO STATES THAT SHE HAS A HISTORY OF KIDNEY STONES. Allergies: Coded Allergies: No Known Allergies (Unverified Allergy, Unknown, 02/07/19) Home Meds Active Scripts Amoxicillin/Potassium Clav (Amox Tr-K Clv 875-125 mg Tab) 875 Mg-125 Mg Tablet, 1 TAB PO BID for 10 Days, #20 TAB 0 Refills Prov:KANDY HARTMANN DO 10/30/24 Ketorolac Tromethamine (Ketorolac Tromethamine) 10 Mg Tablet, 10 MG PO QIDP PRN for PAIN for 5 Days, #20 TAB Prov:PK MILLER NP 12/13/23 Tamsulosin HCl (Flomax) 0.4 Mg Cap.er.24h, 0.4 MG PO DAILY for 30 Days, #30 CAPSULE. Prov:PK MILLER NP 12/13/23 Prednisone (Prednisone) 20 Mg Tablet, 1 TAB PO AD for 6 Days, #14 TAB 0 Refills TAKE 1 TAB BY MOUTH THREE TIMES PER DAY X3 DAYS, THEN TAKE 1 TAB BY MOUTH TWICE A DAY X2 DAYS, THEN TAKE 1 TAB BY MOUTH ONCE A DAY X1 DAY. Prov:KEVIN ASTORGA MD 11/09/23 Azithromycin (Azithromycin) 250 Mg Tablet, 250 MG PO DAILY for 5 Days, #5 TAB Prov:KEVIN ASTORGA MD 11/09/23 Ibuprofen (Motrin/Advil) 800 Mg Tab, 800 MG PO TID, #30 TAB Prov:RASTA EDMONDSON MD 06/25/23 Tamsulosin HCl (Flomax) 0.4 Mg Cap.er.24h, 0.4 MG PO DAILY, #10 CAPSULE. Prov:RASTA EDMONDSON MD 06/25/23 Cephalexin Monohydrate (Keflex) 500 Mg Cap, 500 MG PO QID for 10 Days, #40 CAP 2 Refills Prov:MANN JOSUE Sr., MD 02/11/23 Metoclopramide HCl (Reglan) 10 Mg Tablet, 10 MG PO QID, #120 TAB 2 Refills Prov:MANN JOSUE Sr., MD 02/11/23 Pantoprazole Sodium (Protonix) 40 Mg Tablet.dr, 40 MG PO DAILY, #30 TAB 2 Refills Prov:MANN JOSUE Sr., MD 02/11/23 Sulfamethoxazole/Trimethoprim (Bactrim Ds Tablet) 1 Each Tablet, 1 TAB PO BID for 7 Days, #14 TAB 0 Refills Prov:RASTA EDMONDSON MD 03/02/22 Past Medical History Past Medical History: Kidney Stone, Other Medical History Other: GESTATIONAL DIABETES Past Surgical History: None Family History Family History: Negative Social History Social History: Negative Female( History) History: Not Applicable : 3 Para: 3 ROS Dictation CONSTITUTIONAL: NO CHILLS, NO FEVER, NO WEAKNESS, NO DIAPHORESIS, NO MALAISE. HEAD/FACE: NO SIGNS OF TRAUMA. EENT: NO EYE PAIN, NO BLURRED VISION, NO TEARING, NO DOUBLE VISION, NO EAR PAIN, NO EAR DISCHARGE, NO NOSE PAIN, NO NASAL CONGESTION, NO THROAT PAIN, NO THROAT SWELLING, NO MOUTH PAIN. RESPIRATORY: NO COUGH, NO ORTHOPNEA, NO SOB, NO STRIDOR, NO WHEEZING. CARDIOVASCULAR: NO CHEST PAIN, NO EDEMA, NO PALPITATIONS, NO SYNCOPE. GASTROINTESTINAL/ABDOMINAL: ABDOMINAL PAIN, NO CONSTIPATION, NO DIARRHEA, NO NAUSEA, NO VOMITING. GENITOURINARY: NO ABNORMAL DISCHARGE, NO DYSURIA, NO FREQUENT URINATION, NO HEMATURIA. NO COMPLAINTS OF PAIN IN THE GENITALS. MUSCULOSKELETAL: NO BACK PAIN, NO GOUT, NO JOINT PAIN, NO JOINT SWELLING, NO MUSCLE PAIN, NO MUSCLE STIFFNESS, NO NECK PAIN. INTEGUMENTARY: NO CHANGE IN COLOR, NO CHANGE IN HAIR/NAILS, NO DRYNESS, NO LESION, NO LUMPS, NO RASH. NEUROLOGICAL/PSYCH: NO ANXIETY, NOT DEPRESSED, NO EMOTIONAL PROBLEM, NO HEADACHE, NO NUMBNESS, NO PRE-EXISTING DEFICIT, NO HISTORY OF SEIZURES, NO TREMORS, NO WEAKNESS. HEMATOLOGIC/LYMPHATIC: NOT ANEMIC, NO HISTORY OF BLOOD CLOTS, NO APPARENT BLEEDING, NO BRUISING, GLANDS NOT SWOLLEN. ALL SYSTEMS NEGATIVE, EXCEPT NOTED. Physical Exam Physical Exam Dictation VITAL SIGNS: REVIEWED. GENERAL APPEARANCE: ALERT, ORIENTED X3, NO ACUTE DISTRESS, OBESE. HEAD AND FACE: NON-TRAUMATIC. EYES: PERRL, PINK CONJUNCTIVAS, EYELID NO TRAUMA, ANTERIOR CHAMBER CLEAR. EARS: PINNAS INTACT AND NO SIGNS OF TRAUMA OR ERYTHEMA. EAR CANALS CLEAR AND NO DISCHARGE. TMS NO ERYTHEMA. NOSE: NO DISCHARGE, NO BLEEDING. OROPHARYNX: MOUTH NORMAL, TEETH NO CARIES, TONGUE PINK. PHARYNX CLEAR, NO ERYTHEMA. TONSILS NO EXUDATES, NO ABSCESSES NOTED. MUCOUS MEMBRANE MOIST. NECK: SUPPLE, NON-TENDER, NO THYROMEGALY, NO MASSES, NO JVD, NO BRUITS. BREAST: DEFERRED. CHEST: NO TENDERNESS, NO CREPITUS, NO PARADOXICAL MOVEMENT, NO RETRACTIONS. LUNGS: CLEAR, WELL-VENTILATED, SYMMETRIC, NO RALES, NO WHEEZING, NO RHONCHI, NO STRIDOR, GOOD BREATH SOUNDS BILATERALLY. HEART: REGULAR RATE, REGULAR RHYTHM, NO MURMUR, NO GALLOPS. VASCULAR: NO PERIPHERAL EDEMA. ABDOMEN: SOFT, POSITIVE BOWEL SOUNDS, NONDISTENDED, NO GUARDING, RIGHT CVA TENDER, NO REBOUND, NO MASSES NO HEPATOMEGALY, NO SPLENOMEGALY, NO GREEN'S SI GN, NO HERNIAS. RECTAL: DEFERRED. GENITAL: DEFERRED. NEUROLOGICAL: NORMAL SPEECH, GROSS MOTOR FUNCTION INTACT, GROSS SENSORY FUNCTION INTACT. MUSCULOSKELETAL: NECK NONTENDER, FULL RANGE OF MOTION, BACK NONTENDER, FULL RANGE OF MOTION. EXTREMITIES: NONTENDER, FULL RANGE OF MOTION. SKIN: COLOR PINK, DRY, NO TURGOR, NO RASH, NO LACERATIONS, NO ABRASIONS, NO CONTUSIONS. LYMPHATICS: DEFERRED. Results Laboratory and Microbiology Lab and Micro Result Laboratory Tests Test 10/30/24 05:04 10/30/24 05:07 10/30/24 09:06 White Blood Count 13.5 K/uL (4.8-10.8) H Red Blood Count 5.18 MIL/uL (4.00-5.50) Hemoglobin 14.9 g/dL (12.0-16.0) Hematocrit 44.3 % (36-48) Mean Corpuscular Volume 85.5 fL (79-99) Mean Corpuscular Hemoglobin 28.8 pg (27.0-33.0) Mean Corpuscular Hemoglobin Concent 33.6 g/dL (32.0-36.0) Red Cell Distribution Width 13.1 % (11.0-15.5) Platelet Count 251 K/uL (130-400) Mean Platelet Volume 9.3 fL (7.5-10.5) Immature Granulocyte % (Auto) 0.3 % (0-1) Neutrophils (%) (Auto) 63.8 % (40.0-77.0) Lymphocytes (%) (Auto) 28.5 % (21.0-51.0) Monocytes (%) (Auto) 5.1 % (3.0-13.0) Eosinophils (%) (Auto) 2.0 % (0.0-8.0) Basophils (%) (Auto) 0.3 % (0.0-5.0) Neutrophils # (Auto) 8.6 K/uL (1.8-7.7) H Lymphocytes # (Auto) 3.9 K/uL (1.0-4.8) Monocytes # (Auto) 0.7 K/uL (0.1-1.0) Eosinophils # (Auto) 0.27 K/uL (0.00-0.70) Basophils # (Auto) 0.04 K/uL (0.00-0.20) Absolute Immature Granulocyte (auto 0.04 K/uL (0-1) Nucleated Red Blood Cells 0.0 % (0.0-0.19) Erythrocyte Sedimentation Rate 20 MM/HR (0-20) Sodium Level 142 mmol/L (136-145) Potassium Level 3.6 mmol/L (3.5-5.1) Chloride Level 104 mmol/L (101-111) Carbon Dioxide Level 29 mmol/L (21-32) Blood Urea Nitrogen 12 mg/dL (7-18) Creatinine 0.9 mg/dL (0.5-1.0) Glomerular Filtration Rate Calc 86 mL/min (>90) Random Glucose 117 mg/dL (70-105) H Total Calcium 9.0 mg/dL (8.5-10.1) Total Bilirubin 0.5 mg/dL (0.2-1.0) Direct Bilirubin 0.1 mg/dL (0.0-0.3) Aspartate Amino Transf (AST/SGOT) 24 U/L (10-37) Alanine Aminotransferase (ALT/SGPT) 60 U/L (12-78) Alkaline Phosphatase 102 U/L (50-136) C-Reactive Protein, Quantitative 33.70 mg/L (0.5-3.0) H B-Type Natriuretic Peptide 18 pg/mL (0-100) Total Protein 7.9 g/dL (6.0-8.3) Albumin 3.8 g/dL (3.5-5.0) Urine Color LIGHT-YELLOW (YELLOW) Urine Appearance CLEAR (CLEAR) Urine pH 6.0 (5.0-8.0) Urine Specific [place] 1.016 (1.001-1.031) Urine Protein NEGATIVE mg/dL (NEGATIVE) Urine Glucose (UA) NEGATIVE mg/dL (NEGATIVE) Urine Ketones NEGATIVE mg/dL (NEGATIVE) Urine Occult Blood NEGATIVE (NEGATIVE) Urine Nitrate NEGATIVE (NEGATIVE) Urine Bilirubin NEGATIVE mg/dL (NEGATIVE) Urine Urobilinogen 0.2 mg/dL (0.2-1.0) Urine Leukocyte Esterase 25 Gray/uL (NEGATIVE) H Urine RBC 0-1 /HPF (0-1) Urine WBC 2-5 /HPF (0-1) H Urine Squamous Epithelial Cells MOD /HPF (0-2) Urine Bacteria None /HPF (None Seen) Urine HCG, Qualitative NEGATIVE (NEGATIVE) Troponin I High Sensitivity < 4 ng/L (4-50) L MDM MDM: DIFFERENTIAL DIAGNOSIS: PYELONEPHRITIS, KIDNEY STONE, GALLSTONE RATIONALE: TESTS CONSIDERED AND ORDERED SECONDARY TO SHARED DECISION MAKING INCLUDE: PREVIOUS OUTSIDE RECORDS REVIEWED: OLD ER VISITS. RISK OF COMPLICATION AND/OR MORBIDITY OR MORTALITY OF PATIENT MANAGEMENT: NONE MEDICATIONS-PER MEDICATION RECONCILIATION NEED FOR HOSPITALIZATION: PATIENT DOES NOT MEET CRITERIA FOR HOSPITALIZATION. CC: Right flank pain Historian: Patient Comorbidities: Obesity Limitations by social determinants of health: None Differential diagnosis:. Pyelonephritis, kidney stone, biliary pathology, low pathology, other. Vital signs: Stable, remained stable here in the ER. The labs show leukocytosis 13 K no shift or bands. Sed rate normal. Chemistry normal. Liver enzymes normal. CRP elevated. Troponin normal. Urinalysis normal. CT abdomen and pelvis without c contrast shows no signs of kidney stone which shows regional thought. There is a small abnormality in the lung. I discussed this with the radiologist, he recommends a CT angiogram. CTA shows no signs of PE, but there is a abnormality in the right lower lung lobe which is where the patient's pain is. She has a leukocytosis and she reports a mild cough so we will treat with a course of antibiotics. That said, I discussed in detail with the patient that she needs to follow up with the primary provider because she will likely need repeat imaging in a month or two to ensure resolution. If not she may need further studies such as a biopsy. ED Course Orders Procedure Category Date Status Time Cbc With Differential LAB 10/30/24 Complete 04:59 Basic Metabolic Panel LAB 10/30/24 Complete 04:59 Urinalysis LAB 10/30/24 Complete W/Microscopic 04:59 ,Urine Test LAB 10/30/24 Complete 04:59 0.9%Nacl 1000ml (Ns PHA 10/30/24 Complete 1000ml) 05:00 Ibuprofen 600 Mg PHA 10/30/24 Complete Tablet (Motrin) 06:00 Ct Abdomen/Pelvis W/O CT 10/30/24 Resulted Contrast 05:57 Ketorolac PHA 10/30/24 Complete Tromethamine 15mg/Ml 07:00 Hepatic Function Panel LAB 10/30/24 Complete 07:03 Ct Chest Pe Protocol CT 10/30/24 Resulted Wwo Cont 07:11 Erythrocyte LAB 10/30/24 Complete Sedimentation Rate 07:11 Crp Quantitative LAB 10/30/24 Complete 07:11 Troponin I High LAB 10/30/24 Complete Sensitivity 08:42 B-Type Natriuretic LAB 10/30/24 Complete Peptide 08:42 Iohexol (Omnipaque) PHA 10/30/24 Complete 09:10 Cv Rt Incentive CPOE 10/30/24 Transmitted Spirometry 10:10 Current Medications Medications (Trade) Dose Ordered Sig/Delores Route PRN Reason Start Time Stop Time Status Last Admin Dose Admin Ibuprofen (moTRIN) 600 mg ONCE ONCE PO 10/30/24 06:00 10/30/24 06:01 DC 10/30/24 05:44 Iohexol (Omnipaque) 75 ml STK-MED ONCE IV 10/30/24 09:10 10/30/24 09:11 DC Ketorolac Tromethamine (toRADol) 15 mg ONCE ONCE IM 10/30/24 07:00 10/30/24 07:01 DC 10/30/24 06:53 Sodium Chloride 1,000 ml @ 0 mls/hr ONCE ONCE IV 10/30/24 05:00 10/30/24 05:02 DC 10/30/24 05:10 Vital Signs Date Time Temp Pulse Resp B/P (MAP) Pulse Ox O2 Delivery O2 Flow Rate FiO2 10/30/24 10:21 98.8 70 18 133/73 100 Room Air* 0 10/30/24 07:46 70 17 146/80 96 Room Air* 0 10/30/24 06:20 98.4 71 19 136/61 96 Room Air* 0 10/30/24 05:13 98.8 86 17 141/73 97 Room Air* 0 10/30/24 04:57 98.4 89 18 150/102 99 Room Air DX & DISP Disposition: Discharge Departure Impression: Primary Impression: Right lower lobe pulmonary infiltrate Condition: Stable Scripts Amoxicillin/Potassium Clav (Amox Tr-K Clv 875-125 mg Tab) 875 Mg-125 Mg Tablet 1 TAB PO BID for 10 Days, #20 TAB 0 Refills Prov: KANDY HARTMANN DO 10/30/24 Additional Instructions: Your symptoms are likely due to a right lower lobe lung infiltrate. As we discussed, this may be infectious or scar tissue or another etiology. I have prescribed Augmentin, which is an antibiotic. Please take as prescribed. This medication is safe while . Alternate 800 mg of ibuprofen and 1000 mg of Tylenol every 4 hours for pain. These medications are safe with . You can also apply lidocaine or capsaicin patches to the affected area. These medications are [id number]. As we discussed, you will need to follow up with your primary doctor or a dominatrix for re-evaluation to ensure that the infiltrate has gone away. I have given you a referral. You can also contact your primary doctor. Return to the emergency department as needed. Referrals: SELF,REFERRAL (PCP) INNA TYLER MD October 30, 2024 06:08 KANDY HARTMANN DO October 30, 2024 10:00
[2024-10-30] MEDS: ketOROlac 15MG/ML VIAL (15MG/ML) IM ONE (06:53)
--- NOTE | 2024-10-30 06:58 | NUR ---
REPORT RECEIVED FROM KIARA SHEA
[2024-10-30 07:41] LABS: ALBUMIN 3.8 g/dL (3.5-5.0); BILIRUBIN,DIRECT 0.1 mg/dL (0.0-0.3); BILIRUBIN,TOTAL 0.5 mg/dL (0.2-1.0); TOTAL PROTEIN, SERUM 7.9 g/dL (6.0-8.3)
--- NOTE | 2024-10-30 08:00 | NUR ---
ASSESSMENT: PT FOUND SITTING UP ON THE ED STRETCHER. NO ACUTE DISTRESS NOTED. NO USE OF ACCESSORY MUSCLES NOR STERNAL RETRACTIONS NOTED. PULMONARY/CARDIO: PT STATES SHE HAS SOME DIFFICULTY TAKING IN A DEEP BREATH AND SHE HAS SOME DISCOMFORT FROM HER R LOWER BACK THAT RADIATES TO HER R POSTERIOR SHOULDER WHEN SHE DOES TAKE A DEEP BREATH. NO CYANOSIS NOTED TO NAIL BEDS. SATS 96%+ ON ROOM AIR OXYGEN. PT LSCTA TO ALL WEEMS. DIMINISHED LUNG SOUNDS TO THE RLL. PT DENIES COUGH. S1S2 AUSCULTATED APICALLY. 2+ PULSES TO BILATERAL WRIST. CAP REFILL LESS THAN 3 SECONDS. (PT RECENTLY BIRTHED A CHILD IN SEPTEMBER).
--- NOTE | 2024-10-30 08:17 | HMCIMG ---
Exam Type: CT ABDOMEN/PELVIS W/O CONTRAST Clinical Information: RUQ PAIN Comparison: None CT Dose Index (CTDI): 10.20 mGy Dose Length Product (DLP): 530.00 total mGy-cm PROTOCOL: Routine noncontrast helical scanning of the abdomen and pelvis was performed at 5mm collimation. Findings: Bilateral tiny, 1 to 2 mm renal calculi are seen. There is no hydronephrosis. No worrisome renal masses are seen. Right lower lobe lateral subpleural consolidation consistent with pneumonia. The stomach is unremarkable. It shows no wall thickening. No gross ulceration is seen. It is not overly distended. There are no surrounding inflammatory changes. No wall lesions are identified to suggest cancer. The spleen is unremarkable. It is not enlarged. The pancreas shows normal anatomy. It is not fatty replaced. It shows no lesions. The pancreatic duct is not dilated. The gallbladder is unremarkable. It shows no cholelithiasis. The gallbladder wall is normal in thickness. There is no pericholecystic fluid. The is no acute or chronic inflammation noted. The adrenal glands are unremarkable. There is no enlargement. No lesions are noted. The liver is unremarkable. It shows no focal masses. The appendix is unremarkable. It shows no evidence of inflammation. No appendicolith is seen. The small bowel is unremarkable. There is no evidence of dilatation to suggest obstruction. No evidence of adynamic ileus is seen. There is no small bowel wall thickening to suggest enteritis. The colon is unremarkable. The urinary bladder is unremarkable. There is no wall thickening to suggest tumor or inflammation. There are no intraluminal calculi. There are no diverticula. There is no evidence of chronic bladder outlet obstruction. There is no evidence of urinary bladder distention to suggest urinary retention. The other pelvic structures are unremarkable. The bony and vascular structures are unremarkable for the patient's age. IMPRESSION: Right lower lobe pneumonia. Follow-up to complete radiographic resolution recommended. Partial tolerated This study was performed using dose reduction techniques to include automated exposure control and/or adjustment of the mA and/or kV according to patient size.
--- NOTE | 2024-10-30 08:27 | NUR ---
[facility] INFORMED THAT THE PT HAS AN AC IV AND CONSENT OBTAINED.
[2024-10-30] MEDS ORDERED: IOHEXOL-350 75 ML VIAL IV ONE (09:10)
--- NOTE | 2024-10-30 09:21 | NUR ---
PT JUST NOW TAKEN TO CT SCAN VIA W/C BY [employer] SUPERVISOR
--- NOTE | 2024-10-30 09:34 | NUR ---
PT JUST NOW RETURNED FROM CT SCAN
--- NOTE | 2024-10-30 09:49 | HMCIMG ---
CT angiogram chest CLINICAL INDICATION: PE COMPARISON: None. CT Dose Index (CTDI): 113.50 mGy Dose Length Product (DLP): 1408.10 total mGy PROTOCOL: Contrast: 100 cc of Isovue-370, injected IV, no complications Examination is done at 2.5 millimeter volumetric acquisition after contrast administration. Photography is done at 5 millimeter thick intervals for the thorax. FINDINGS: There is no evidence of pulmonary embolism. The airway is intact. The trachea and major bronchi are unremarkable. Right lower lobe lateral segment subpleural pneumonic infiltrate, wedge-shaped. The rest of the lung whitehead are clear. Follow-up to complete radiographic resolution is recommended to rule out underlying persistent lesions which could indicate neoplastic disease. No pleural effusions are identified. The exam of the yani and mediastinum is unremarkable. No evidence of hilar enlargement is seen. The aorta shows no aneurysmal dilatation or significant atheromatous calcification. There is no thoracic aortic dissection. No significant brachiocephalic vascular abnormalities are seen. The heart is unremarkable. It is not enlarged. No significant coronary arterial calcifications are seen. There is no pericardial effusion. The rib cage appears unremarkable. The soft tissues of the chest wall are unremarkable. The dorsal spine shows no significant abnormalities. Limited evaluation of the upper abdomen demonstrates no gross abnormalities. IMPRESSION: No evidence of pulmonary embolism. Right lower lobe lateral segment subpleural pneumonic infiltrate, wedge-shaped. The rest of the lung whitehead are clear. Follow-up to complete radiographic resolution is recommended to rule out underlying persistent lesions which could indicate neoplastic disease. This study was performed using dose reduction techniques to include automated exposure control and/or adjustment of the mA and/or kV according to patient size.
[2024-10-30] MEDS ORDERED: AMOX1TAB16 PO (09:58)
[2024-10-30 10:21] VITALS: BP 133/73; PULSE 70; RESP 18; TEMP 98.8; O2SAT 100
== END 2024-10-30 10:31 | disposition home or self-care (01) ==
LOC: EDH 04:55
DX: R91.8 Other nonspecific abnormal finding of lung field (principal); E66.9 Obesity, unspecified; Z79.1 Long term (current) use of non-steroidal anti-inflammatories (NSAID); Z79.899 Other long term (current) drug therapy
CPT/HCPCS: 99285; 71270; 96360; 80076; 84484; 80048; 83880; 85025; 85651; 86140; 81001; 81025; 36415; 74176; 96372; J1885; J7030; Q9967

== ENCOUNTER 2024-11-01 06:05 | Inpatient (IN) | payer MEDICAID ==
[~2024-11-01] VITALS: Ht 154.9 cm; Wt 95.3 kg
[~2024-11-01 06:05] MED LIST changes: +AMOX1TAB16 PO
[2024-11-01 06:35] LABS: APPEARANCE,URINE CLEAR (CLEAR); BILIRUBIN,URINE NEGATIVE (NEGATIVE); COLOR,URINE LIGHT-YELLOW (YELLOW); GLUCOSE, URINE (UA) NEGATIVE (NEGATIVE); KETONES,URINE 10 mg/dL (NEGATIVE); LEUKOCYTE ESTERASE ,URINE 25 Leu/uL (NEGATIVE); NITRATE,URINE NEGATIVE (NEGATIVE); OCCULT BLOOD,URINE SMALL (NEGATIVE); PROTEIN,URINE NEGATIVE (NEGATIVE); UROBILINOGEN,URINE 0.2 mg/dL (0.2-1.0)
[2024-11-01 06:37] LABS: ADD UA MICROSCOPIC YES
[2024-11-01 06:38] LABS: MUCUS,URINE RARE LPF (None Seen); SQUAMOUS EPITHELIAL CELL,UR FEW /HPF (0-2)
[2024-11-01 06:40] LABS: HCG,QUALITATIVE URINE NEGATIVE (NEGATIVE)
[2024-11-01 06:44] LABS: BASOPHILS # (AUTO) 0.03 K/uL (0.00-0.20); BASOPHILS % (AUTO) 0.2 % (0.0-5.0); EOSINOPHILS # (AUTO) 0.11 K/uL (0.00-0.70); EOSINOPHILS % (AUTO) 0.7 % (0.0-8.0); IMMATURE GRANULOCYTE ABSOLUTE 0.04 K/uL (0-1); LYMPHOCYTES # (AUTO) 2.4 K/uL (1.0-4.8); LYMPHOCYTES % (AUTO) 15.4 % (21.0-51.0); MEAN CORPUSCULAR HEMOGLOBIN 28.9 pg (27.0-33.0); MEAN CORPUSCULAR VOLUME 84.9 fL (79-99); MONOCYTES # (AUTO) 0.8 K/uL (0.1-1.0); MONOCYTES % (AUTO) 5.1 % (3.0-13.0); NEUTROPHILS # (AUTO) 12.1 K/uL (1.8-7.7); NEUTROPHILS % (AUTO) 78.3 % (40.0-77.0); PLATELET COUNT (AUTO) 270 K/uL (130-400); RED BLOOD CELL COUNT(AUTO) 4.71 MIL/uL (4.00-5.50); RED CELL DISTRIBUTION WIDTH 13.2 % (11.0-15.5); WHITE BLOOD COUNT (AUTO) 15.5 K/uL (4.8-10.8)
[2024-11-01 07:02] LABS: CREATININE 0.7 mg/dL (0.5-1.0); POTASSIUM 3.8 mmol/L (3.5-5.1)
--- NOTE | 2024-11-01 07:14 | NUR ---
D-Dimer-1,413, ERMD MADE AWARE
--- NOTE | 2024-11-01 07:52 | HP ---
YRN HISTORY AND PHYSICAL Date of Service: November 01, 2024 Time of Service: 07:52 HISTORY OF PRESENT ILLNESS: [This is a 34-year-old female with past medical history of kidney stones, gestational diabetes, anxiety disorder who presented to the emergency department today with shortness of breaths, hemoptysis, sharp pain to the right lower back. Apparently patient was seen in the emergency department two days ago for which she was diagnosed with pneumonia and was sent with antibiotic Augmentin. This morning, she reported that she was feeding her baby of 1-month-old when she cough and she noticed the blood in her cough. She decided to come to the emergency department for further evaluation. Side note patient was in the ER two days ago with complaints of shortness of breaths, pain when she is breathing that radiates to her right lower back. Patient was stating that she even felt a lot better with her reading at it does not hurt as much as she did two days ago. But she want to come to the emergency department due to hemoptysis. ] REVIEW OF SYSTEMS CONSTITUTIONAL: Denies fevers, chills, or night sweats. No unintentional weight loss reported. NEUROLOGICAL: Denies headache, amaurosis fugax, motor weakness, sensory deficit, vertigo/spinning sensation, gait abnormalities, or tremors. ENT: No hearing loss, otalgia, otorrhea, rhinitis, rhinorrhea, hoarseness, or sore throat. CARDIOVASCULAR: Denies any exertional angina, dyspnea on exertion, orthopnea, paroxysmal nocturnal dyspnea, palpitations, life-threatening arrhythmias, claudication. PULMONARY: Denies any shortness of breath, cough, phlegm/sputum, hemoptysis, pleuritic chest pain. SLEEP: Denies morning headaches, daytime somnolence or napping. Denies difficulty falling asleep, staying asleep, waking from sleep. Denies knowledge of snoring. GASTROINTESTINAL: Denies any type of dysphagia to either liquids or solids. Denies nausea, vomiting, pyrosis, early satiety, abdominal pain, diarrhea, con stipation, or changes in stool consistency or caliber. Denies coffee-ground emesis, hematemesis, hematochezia, or melanotic stools. GENITOURINARY: Denies frequency, urgency, nocturia, hematuria or incontinence (Storage/Irritative symptoms.) Low urinary stream, straining to void, urinary intermittency or hesitancy, splitting of the voiding stream, terminal dribbling. ENDOCRINOLOGIC: Denies polyuria, polydipsia, polyphagia or heat/cold intolerances. HEMATOLOGIC: Denies thrombophilia/previous clots, or coagulopathy/bleeding disorders. ONCOLOGIC: Denies personal history of malignancy. DERMATOLOGIC: Denies rashes or pruritus. PSYCHIATRIC: Denies any suicidal or homicidal ideation. Denies hallucinations. PAST MEDICAL HISTORY: [Gestational diabetes, anxiety disorder, kidney stone ] PAST SURGICAL HISTORY: [Denies any surgical history ] PAST SOCIAL HISTORY: [Denies tobacco, alcohol or illicit drug use. Patient just recently just gave a month ago. Patient has three children. ] FAMILY HISTORY: [ Noncontributory ] Coded Allergies: No Known Allergies (Unverified Allergy, Unknown, 02/07/19) PHYSICAL EXAM GENERAL APPEARANCE: The patient is awake, alert, and oriented, in no acute cardiopulmonary distress. NEUROLOGICAL: Cranial nerves II-XII grossly intact. Motor is 5/5 in bilateral upper and lower extremities proximal to distal. No sensory deficits. HEENT: Face is symmetric. Pupils are equal and reactive. Extraocular movements are intact. NECK: Supple. No JVD. No thyromegaly. No submental, submandibular, pre- /postauricular, occipital or supraclavicular lymphadenopathy. CHEST: Normal chest expansion. No Telemetry. LUNGS: Absence of any rales, rhonchi or any wheezing. CARDIOVASCULAR: Regular. S1 and S2 normal. No appreciable rubs, murmurs or gallops. ABDOMEN: Soft, nontender, and nondistended. There is no rebound, voluntary guarding, or rigidity. : Deferred. No Martins. EXTREMITIES: Non-edematous and not cyanotic. No clubbing. Good capillary refill. SKIN: No skin breakdown. Vital Sign (Last 24 Hours) 11/01/24 07:05 Temp 99.1 Pulse 80 Resp 20 B/P (MAP) 139/90 Pulse Ox 96 O2 Delivery Room Air* O2 Flow Rate 0 FiO2 21 LABS: Laboratory: Test 11/01/24 06:38 11/01/24 06:25 Range/Units White Blood Count 15.5 H 4.8-10.8 K/uL Red Blood Count 4.71 4.00-5.50 MIL/uL Hemoglobin 13.6 12.0-16.0 g/dL Hematocrit 40.0 36-48 % Mean Corpuscular Volume 84.9 79-99 fL Mean Corpuscular Hemoglobin 28.9 27.0-33.0 pg Mean Corpuscular Hemoglobin Concent 34.0 32.0-36.0 g/dL Red Cell Distribution Width 13.2 11.0-15.5 % Platelet Count 270 130-400 K/uL Mean Platelet Volume 9.3 7.5-10.5 fL Immature Granulocyte % (Auto) 0.3 0-1 % Neutrophils (%) (Auto) 78.3 H 40.0-77.0 % Lymphocytes (%) (Auto) 15.4 L 21.0-51.0 % Monocytes (%) (Auto) 5.1 3.0-13.0 % Eosinophils (%) (Auto) 0.7 0.0-8.0 % Basophils (%) (Auto) 0.2 0.0-5.0 % Neutrophils # (Auto) 12.1 H 1.8-7.7 K/uL Lymphocytes # (Auto) 2.4 1.0-4.8 K/uL Monocytes # (Auto) 0.8 0.1-1.0 K/uL Eosinophils # (Auto) 0.11 0.00-0.70 K/uL Basophils # (Auto) 0.03 0.00-0.20 K/uL Absolute Immature Granulocyte (auto 0.04 0-1 K/uL Nucleated Red Blood Cells 0.0 0.0-0.19 % D-Dimer Quantitative (PE/DVT) 1413 *H 0-500 ng/mL Sodium Level 139 136-145 mmol/L Potassium Level 3.8 3.5-5.1 mmol/L Chloride Level 106 101-111 mmol/L Carbon Dioxide Level 22 21-32 mmol/L Blood Urea Nitrogen 10 7-18 mg/dL Creatinine 0.7 0.5-1.0 mg/dL Glomerular Filtration Rate Calc 116 >90 mL/min Random Glucose 125 H 70-105 mg/dL Total Calcium 8.7 8.5-10.1 mg/dL Procalcitonin < 0.05 L 0.05-0.5 ng/mL Urine Color LIGHT-YELLOW YELLOW Urine Appearance CLEAR CLEAR Urine pH 6.0 5.0-8.0 Urine Specific [place] 1.017 1.001-1.031 Urine Protein NEGATIVE NEGATIVE mg/dL Urine Glucose (UA) NEGATIVE NEGATIVE mg/dL Urine Ketones 10 H NEGATIVE mg/dL Urine Occult Blood SMALL H NEGATIVE Urine Nitrate NEGATIVE NEGATIVE Urine Bilirubin NEGATIVE NEGATIVE mg/dL Urine Urobilinogen 0.2 0.2-1.0 mg/dL Urine Leukocyte Esterase 25 H NEGATIVE Gray/uL Urine RBC 2-5 H 0-1 /HPF Urine WBC 2-5 H 0-1 /HPF Urine Squamous Epithelial Cells FEW 0-2 /HPF Urine Bacteria None None Seen /HPF Urine HCG, Qualitative NEGATIVE NEGATIVE Current Medications Medications (Trade) Dose Ordered Sig/Delores Route PRN Reason Start Time Stop Time Status Last Admin Dose Admin Acetaminophen (TYLenol 325MG TAB) 650 mg Q4H PRN PO TEMPERATURE GREATER THAN 101.5 11/01/24 08:00 12/01/24 07:59 UNV Acetaminophen (TYLenol 325MG TAB) 650 mg Q6H PRN PO MILD PAIN (1-3) 11/01/24 08:00 12/01/24 07:59 UNV Azithromycin 250 ml @ 250 mls/hr Q24H IVPB 11/01/24 08:00 11/11/24 07:59 UNV Ceftriaxone Sodium (ROCEphine 1G INJ) 1 gm Q24H IVPB 11/01/24 08:00 11/11/24 07:59 UNV Ondansetron HCl (zoFRAN 4MG INJ) 4 mg Q6H PRN IVP NAUSEA/VOMITING 11/01/24 08:00 12/01/24 07:59 UNV Sodium Chloride 1,000 ml @ 100 mls/hr Q10H IV 11/01/24 08:00 12/01/24 07:59 UNV DIAGNOSTICS / RADIOLOGY: [ ] ASSESSMENT: [Right lower lobe pneumonia, POA Failed outpatient antibiotic therapy, POA Tiny bilateral pleural effusion, POA Ruled out PE, POA Ruled out DVT, POA Leukocytosis, POA Hyperglycemia, POA ] PLAN: [Patient will be admitted to PCCU We will order CTA for PE protocol stat Patient we will start with IV antibiotic with azithromycin and Rocephin We will be consulting box bender and Infectious Disease Patient will be on NS at 100 mL/hour GI and DVT prophylaxis Prn medications for fever, pain, anxiety nausea vomiting We will repeat labs tomorrow We will request COVID, flu, strep a, mycoplasma pneumoniae and strep pneumoniae Patient is a full code ADVANCED CARE PLANNING 1. Which of the following were discussed? Hospice Care - Yes / No Therapeutic options - Yes / No Advance Directives - Yes / No Other discussions - 2. Discussed with who? Patient 3. Voluntary nature of this service was explained to the patient? Yes / No 4. Amount of time spent - ___21 mins____ 5. Reviewed by Physician? (if this service was performed by NPP) Yes / No ] ATTESTATION BY PHYSICIAN I have seen and examined the patient. I reviewed the documentation, medical decision making, and treatment plan as noted by the mid-level provider above. I agree with the findings and plan of care. Heaven Madrigal MD, [facility] November 01, 2024 07:52
--- NOTE | 2024-11-01 07:52 | ERN ---
General Chief Complaint: Other Problems Stated Complaint: COUGH BLOOD Time Seen by MD: 07:02 Source: patient History of Present Illness Initial Comments Patient is a 34-year-old female who gave one month ago to a healthy girl. Two days ago she came in with symptoms of right flank pain and a workup showed a mild leukocytosis as well as a right basilar peripheral wedge shaped pulmonic infiltrate seen on a CT PE study. UA was negative at the time and the patient was discharged on Augmentin. Today the patient returns coughing up blood. No fevers no chills. Patient does have a history of kidney stones but right now the only medicine she is taking is the Augmentin Timing/Duration: 24 hours Allergies: Coded Allergies: No Known Allergies (Unverified Allergy, Unknown, 02/07/19) Home Meds Active Scripts Amoxicillin/Potassium Clav (Amox Tr-K Clv 875-125 mg Tab) 875 Mg-125 Mg Tablet, 1 TAB PO BID for 10 Days, #20 TAB 0 Refills Prov:KANDY HARTMANN DO 10/30/24 Ketorolac Tromethamine (Ketorolac Tromethamine) 10 Mg Tablet, 10 MG PO QIDP PRN for PAIN for 5 Days, #20 TAB Prov:PK MILLER NP 12/13/23 Tamsulosin HCl (Flomax) 0.4 Mg Cap.er.24h, 0.4 MG PO DAILY for 30 Days, #30 CAPSULE. Prov:PK MILLER NP 12/13/23 Prednisone (Prednisone) 20 Mg Tablet, 1 TAB PO AD for 6 Days, #14 TAB 0 Refills TAKE 1 TAB BY MOUTH THREE TIMES PER DAY X3 DAYS, THEN TAKE 1 TAB BY MOUTH TWICE A DAY X2 DAYS, THEN TAKE 1 TAB BY MOUTH ONCE A DAY X1 DAY. Prov:KEVIN ASTORGA MD 11/09/23 Azithromycin (Azithromycin) 250 Mg Tablet, 250 MG PO DAILY for 5 Days, #5 TAB Prov:KEVIN ASTORGA MD 11/09/23 Ibuprofen (Motrin/Advil) 800 Mg Tab, 800 MG PO TID, #30 TAB Prov:RASTA EDMONDSON MD 06/25/23 Tamsulosin HCl (Flomax) 0.4 Mg Cap.er.24h, 0.4 MG PO DAILY, #10 CAPSULE. Prov:RASTA EDMONDSON MD 06/25/23 Cephalexin Monohydrate (Keflex) 500 Mg Cap, 500 MG PO QID for 10 Days, #40 CAP 2 Refills Prov:MANN JOSUE Sr., MD 02/11/23 Metoclopramide HCl (Reglan) 10 Mg Tablet, 10 MG PO QID, #120 TAB 2 Refills Prov:MANN JOSUE Sr., MD 02/11/23 Pantoprazole Sodium (Protonix) 40 Mg Tablet.dr, 40 MG PO DAILY, #30 TAB 2 Refills Prov:MANN JOSUE Sr., MD 02/11/23 Sulfamethoxazole/Trimethoprim (Bactrim Ds Tablet) 1 Each Tablet, 1 TAB PO BID for 7 Days, #14 TAB 0 Refills Prov:RASTA EDMONDSON MD 03/02/22 Past Medical History Past Medical History: Kidney Stone, Other Medical History Other: GESTATIONAL DIABETES Past Surgical History: None Family History Family History: Negative Social History Social History: Negative Female( History) History: Not Applicable : 3 Para: 3 Constitutional: (-) chills, (-) diaphoresis, (-) fever, (-) malaise, (-) weakness, (-) other documentation EENTM: (-) eye pain, (-) blurred vision, (-) tearing, (-) double vision, (-) ear pain, (-) ear discharge, (-) nose pain, (-) nose congestion, (-) throat pain, (-) Throat swelling, (-) mouth pain, (-) tooth pain, (-) mouth swelling, (-) other documentation Respiratory: (+) cough Cardiovascular: (-) chest pain, (-) edema, (-) palpitations, (-) syncope, (-) dyspnea on exertion, (-) other documentation Gastrointestinal/Abdominal: (-) nausea, (-) vomiting, (-) diarrhea, (-) abdominal pain, (-) abdominal distention, (-) constipation, (-) rectal bleeding, (-) dark stool/melena, (-) other documentation Genitourinary: (-) vaginal discharge, (-) vaginal bleeding, (-) dysuria, (-) frequency, (-) hematuria, (-) pain, (-) other documentation Musculoskeletal: (-) Neck pain, (-) back pain, (-) Flank Pain, (-) joint pain, (-) joint swelling, (-) muscle pain, (-) muscle stiffness, (-) gout, (-) other documentation Physical Exam General Appearance: (+) mild distress Orientation: (+) oriented x 3 Eye: bilateral eye normal inspection, bilateral eye PERRL, bilateral eye EOMI Ear, Nose, Throat: (+) hearing grossly normal, (+) normal ENT inspection Neck: (+) normal inspection, (+) supple, (+) full range of motion Respiratory: (+) chest non-tender, (+) lungs clear, (+) well ventilated Heart: (+) regular, (+) no gallop Vascular: (+) no edema, (+) normal peripheral pulse Gastrointestinal: (+) soft, (+) non-tender, (+) bowel sound present Results Laboratory and Microbiology Lab and Micro Result Laboratory Tests Test 11/01/24 06:25 11/01/24 06:38 Urine Color LIGHT-YELLOW (YELLOW) Urine Appearance CLEAR (CLEAR) Urine pH 6.0 (5.0-8.0) Urine Specific [place] 1.017 (1.001-1.031) Urine Protein NEGATIVE mg/dL (NEGATIVE) Urine Glucose (UA) NEGATIVE mg/dL (NEGATIVE) Urine Ketones 10 mg/dL (NEGATIVE) H Urine Occult Blood SMALL (NEGATIVE) H Urine Nitrate NEGATIVE (NEGATIVE) Urine Bilirubin NEGATIVE mg/dL (NEGATIVE) Urine Urobilinogen 0.2 mg/dL (0.2-1.0) Urine Leukocyte Esterase 25 Gray/uL (NEGATIVE) H Urine RBC 2-5 /HPF (0-1) H Urine WBC 2-5 /HPF (0-1) H Urine Squamous Epithelial Cells FEW /HPF (0-2) Urine Bacteria None /HPF (None Seen) Urine HCG, Qualitative NEGATIVE (NEGATIVE) White Blood Count 15.5 K/uL (4.8-10.8) H Red Blood Count 4.71 MIL/uL (4.00-5.50) Hemoglobin 13.6 g/dL (12.0-16.0) Hematocrit 40.0 % (36-48) Mean Corpuscular Volume 84.9 fL (79-99) Mean Corpuscular Hemoglobin 28.9 pg (27.0-33.0) Mean Corpuscular Hemoglobin Concent 34.0 g/dL (32.0-36.0) Red Cell Distribution Width 13.2 % (11.0-15.5) Platelet Count 270 K/uL (130-400) Mean Platelet Volume 9.3 fL (7.5-10.5) Immature Granulocyte % (Auto) 0.3 % (0-1) Neutrophils (%) (Auto) 78.3 % (40.0-77.0) H Lymphocytes (%) (Auto) 15.4 % (21.0-51.0) L Monocytes (%) (Auto) 5.1 % (3.0-13.0) Eosinophils (%) (Auto) 0.7 % (0.0-8.0) Basophils (%) (Auto) 0.2 % (0.0-5.0) Neutrophils # (Auto) 12.1 K/uL (1.8-7.7) H Lymphocytes # (Auto) 2.4 K/uL (1.0-4.8) Monocytes # (Auto) 0.8 K/uL (0.1-1.0) Eosinophils # (Auto) 0.11 K/uL (0.00-0.70) Basophils # (Auto) 0.03 K/uL (0.00-0.20) Absolute Immature Granulocyte (auto 0.04 K/uL (0-1) Nucleated Red Blood Cells 0.0 % (0.0-0.19) D-Dimer Quantitative (PE/DVT) 1413 ng/mL (0-500) *H Sodium Level 139 mmol/L (136-145) Potassium Level 3.8 mmol/L (3.5-5.1) Chloride Level 106 mmol/L (101-111) Carbon Dioxide Level 22 mmol/L (21-32) Blood Urea Nitrogen 10 mg/dL (7-18) Creatinine 0.7 mg/dL (0.5-1.0) Glomerular Filtration Rate Calc 116 mL/min (>90) Random Glucose 125 mg/dL (70-105) H Total Calcium 8.7 mg/dL (8.5-10.1) MDM CBC UA urine chemistry panel CRP procalcitonin chest x-ray CT chest and D-dimer were all ordered. D-dimers are mildly elevated. CBC shows an increase in the white blood cell count compared to two days ago. Chest x-ray shows increased pulmonary edema bilateral lower lung whitehead. I have called the hospitalist and they have agreed to admit the patient to the hospital for increasing white blood cell count and hemoptysis after two days of Augmentin therapy that was given for CT scan finding of a right lateral basilar infiltrate. I will discuss the imaging with radiologist today the infiltrate could be a pneumonia but it could also be a pulmonic infarct. It does have many of the characteristics of a pulmonic infarct. Both of these conditions would be consistent with a an increased D-dimer level. ED Course Orders Procedure Category Date Status Time Cbc With Differential LAB 11/01/24 Complete 06:20 Basic Metabolic Panel LAB 11/01/24 Complete 06:20 Chest 1vw RAD 11/01/24 Taken 06:20 Urinalysis Profile LAB 11/01/24 Complete 06:20 ,Urine Test LAB 11/01/24 Complete 06:20 Saline Lock Iv CPOE 11/01/24 Transmitted 06:20 D-Dimer LAB 11/01/24 Complete 06:36 Procalcitonin LAB 11/01/24 In Process 07:05 Vital Signs Date Time Temp Pulse Resp B/P (MAP) Pulse Ox O2 Delivery O2 Flow Rate FiO2 11/01/24 06:25 99.0 82 20 147/94 96 Room Air* 0 21 11/01/24 06:18 99.1 85 20 141/89 96 Room Air 0 DX & DISP Disposition: Inpatient Departure Impression: Primary Impression: Right lower lobe pulmonary infiltrate Condition: Stable Referrals: SELF,REFERRAL (PCP) SUSANNE SMYTH MD November 01, 2024 07:52
--- NOTE | 2024-11-01 07:59 | NUR ---
Assumed patients care. Patient does not take any home medications.
[2024-11-01] MEDS ORDERED: acetaMINOPHEN 325 MG TAB PO PRN (08:00)
[2024-11-01] MEDS ORDERED: ondanSETRON 4MG INJ IVP PRN (08:00)
--- NOTE | 2024-11-01 08:12 | HMCIMG ---
CHEST 1VW HISTORY: Pneumonia COMPARISON: None FINDINGS: A frontal projection of the chest was obtained. Bilateral pulmonary infiltrates are seen with pleural effusion with right more than left. The heart is borderline enlarged. No evidence of aortic calcification is seen. IMPRESSION: 1. Bilateral pulmonary infiltrates with pleural effusion with right more than left.
[2024-11-01] MEDS: AZITHROMYCIN 500MG+NS 250ML 250 ML IVPB SCH (08:14)
[2024-11-01] MEDS: cefTRIAXone 1G VIAL IVPB SCH (08:14)
[2024-11-01] MEDS: 0.9%NACL 1000ML 1,000 ML IV SCH (08:14)
[2024-11-01] MEDS ORDERED: IOHEXOL-350 75 ML VIAL IV ONE (08:38)
--- NOTE | 2024-11-01 09:00 | NUR ---
Mrs. Casey [employer] APPLIER for hospitalist rounded.
--- NOTE | 2024-11-01 09:10 | NUR ---
Patient left for CT.
--- NOTE | 2024-11-01 09:58 | HMCIMG ---
CT CHEST PE PROTOCOL WWO CONT HISTORY: Elevated d-dimer COMPARISON: None TECHNIQUE: CT angiography of the chest was performed. The study was performed using angiographic technique with maximum intensity projection reconstruction images. Patient was given 75 cc of Omnipaque through intravenous route. FINDINGS: No CT evidence of filling defect is seen to suggest pulmonary embolus. No CT evidence of aortic dissection is seen. There are bibasilar linear atelectasis. Right lower lung subsegmental atelectasis changes are seen. Tiny bilateral pleural effusions are seen. Fatty changes of the liver are noted. The heart is enlarged. No evidence of adrenal mass is seen. Degenerative changes of the spine are noted. IMPRESSION: 1. Right lower lung subsegmental atelectasis. Tiny bilateral pleural effusions. No CT evidence of pulmonary embolus is seen. CT was performed with one or more following dose reduction techniques: automated exposure control, adjustment of the mA and kv according to patient's size, or use of a iterative reconstruction technique.
[2024-11-01] MEDS ORDERED: hydrOXYzine 25 MG TABLET PO PRN (10:00)
--- NOTE | 2024-11-01 10:51 | EKG ---
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
--- NOTE | 2024-11-01 11:09 | CONS ---
[facility] CONSULTATION NOTE Date Patient Seen: November 01, 2024 Time of Visit: 11:09 Supervising Physician: [Dr. Parmar] Reason for Consultation: [Hemoptysis] Primary Care Physician: [ ] Outpatient Specialists: [ ] Inpatient Consults: [[facility]] PROBLEM LIST: Right lower lobe pneumonia vs atelectasis, POA Failed outpatient antibiotic therapy, POA Small bilateral pleural effusion, POA Bilateral renal calculi, 1-2mm per CT abdomen 10/30 Elevated D-dimer Leukocytosis, POA Hyperglycemia, POA Former smoker Plan: Order renal ultrasound Order right upper quadrant ultrasound Ordered COVID, and strep swabs Order incentive spirometer Order mycoplasma and Legionella Check PT-INR Order REANNA Follow venous Doppler results Further management per hospital course HPI: [This is a 34-year-old female who is one month . She initially presents to the ED two days prior with right flank pain. Workup at that time revealed bilateral 1-2 mm renal calculi. She was diagnosed with pneumonia at that time and discharged on Augmentin. Patient states her right flank pain worsened and she noticed blood streaked phlegm production prompting her to visit the ED. [facility] is consulted for hemoptysis. Patient's labs revealed leukocytosis with WBC of 15, elevated D-dimer of 1413, elevated ESR at 41 and elevated CRP at 105. A CTA of the chest was negative for PE, patient is currently undergoing venous Doppler at bedside. She denies any nausea or vomiting. Currently in no respiratory distress, saturating well on room air. She reports her daughter having strep throat couple of weeks prior. Also complains of left-sided neck pain. She reports a history of smoking a long time ago, but not recently."Her UA shows small amount of leukocyte esterase, patient has been initiated on Rocep hin and azithromycin. She is not on any anti-contraceptives.] PAST MEDICAL HX: see above PAST SURGICAL HX: noncontributory SOCIAL HISTORY: No tobacco, ETOH, or illicit drug use Coded Allergies: No Known Allergies (Unverified Allergy, Unknown, 02/07/19) REVIEW OF SYSTEMS: 12 point ROS reviewed with patient. Pertinent positives mentioned above. Otherwise negative. PHYSICAL EXAM: GENERAL: alert, weak, awake oriented x 3 HEENT: EOMI, Sclera non icteric, moist mucosa NECK: Supple, no JVD, trachea midline LUNGS: Clear breath sounds bilaterally. No wheezes HEART: Regular rate and rhythm. Normal S1 and S2, without murmurs ABD: Abdomen soft, nontender. Bowel sounds present EXT: No clubbing cyanosis or edema NEURO: Alert and oriented to person, follows commands Vital Signs (last 8hr) Date Time Temp Pulse Resp B/P (MAP) Pulse Ox O2 Delivery O2 Flow Rate FiO2 11/01/24 07:58 98.8 80 20 141/84 95 Room Air* 0 21 11/01/24 07:05 99.1 80 20 139/90 96 Room Air* 0 21 11/01/24 06:25 99.0 82 20 147/94 96 Room Air* 0 21 11/01/24 06:18 99.1 85 20 141/89 96 Room Air 0 LABS: Hematology Labs: Test 11/01/24 06:38 Range/Units White Blood Count 15.5 H 4.8-10.8 K/uL Red Blood Count 4.71 4.00-5.50 MIL/uL Hemoglobin 13.6 12.0-16.0 g/dL Hematocrit 40.0 36-48 % Mean Corpuscular Volume 84.9 79-99 fL Mean Corpuscular Hemoglobin 28.9 27.0-33.0 pg Mean Corpuscular Hemoglobin Concent 34.0 32.0-36.0 g/dL Red Cell Distribution Width 13.2 11.0-15.5 % Platelet Count 270 130-400 K/uL Mean Platelet Volume 9.3 7.5-10.5 fL Immature Granulocyte % (Auto) 0.3 0-1 % Neutrophils (%) (Auto) 78.3 H 40.0-77.0 % Lymphocytes (%) (Auto) 15.4 L 21.0-51.0 % Monocytes (%) (Auto) 5.1 3.0-13.0 % Eosinophils (%) (Auto) 0.7 0.0-8.0 % Basophils (%) (Auto) 0.2 0.0-5.0 % Neutrophils # (Auto) 12.1 H 1.8-7.7 K/uL Lymphocytes # (Auto) 2.4 1.0-4.8 K/uL Monocytes # (Auto) 0.8 0.1-1.0 K/uL Eosinophils # (Auto) 0.11 0.00-0.70 K/uL Basophils # (Auto) 0.03 0.00-0.20 K/uL Absolute Immature Granulocyte (auto 0.04 0-1 K/uL Nucleated Red Blood Cells 0.0 0.0-0.19 % Erythrocyte Sedimentation Rate 41 H 0-20 MM/HR Chemistry Labs: Test 11/01/24 09:58 11/01/24 06:38 Range/Units Troponin I High Sensitivity < 4 L 4-50 ng/L Sodium Level 139 136-145 mmol/L Potassium Level 3.8 3.5-5.1 mmol/L Chloride Level 106 101-111 mmol/L Carbon Dioxide Level 22 21-32 mmol/L Blood Urea Nitrogen 10 7-18 mg/dL Creatinine 0.7 0.5-1.0 mg/dL Glomerular Filtration Rate Calc 116 >90 mL/min Random Glucose 125 H 70-105 mg/dL Total Calcium 8.7 8.5-10.1 mg/dL C-Reactive Protein, Quantitative 105.80 H 0.5-3.0 mg/L Procalcitonin < 0.05 L 0.05-0.5 ng/mL Coagulation Labs: Test 11/01/24 06:38 Range/Units D-Dimer Quantitative (PE/DVT) 1413 *H 0-500 ng/mL DIAGNOSTICS / RADIOLOGY RESULTS: [ ] PLAN NEURO: Minimize central acting medications as possible. Maintain fall precautions, adequate lighting during the day PULMONARY: Supplemental 02 as needed. Maintain aspiration precautions at all times CARDIOVASCULAR: Follow hemodynamics. Vital signs per facility protocol GI & NUTRITION: Continue with nutritional support. Continue stool softeners and laxatives as needed. KIDNEYS & ELECTROLYTES: Strict monitoring of intake, output and overall fluid balance. Avoid nephrotoxic medications to the extent possible. Medications to be dosed according to renal function. Monitor electrolytes and replace as needed ENDOCRINE: Maintain blood glucose between 100-180 at all times. Hypoglycemia protocol in place INFECTIOUS DISEASE: Trend temperature, WBC and procalcitonin level Follow cultures, deescalate antibiotics as soon as possible. Panculture if new onset fever ONCOLOGY/HEMATOLOGY/COAGULATION: Monitor for s/s of bleeding Monitor hemoglobin, coagulation studies as needed SKIN: Pressure ulcer prevention per facility protocol Specialty mattress ORTHO/REHAB: Continue PT/OT Prophylaxis: Continue GI and DVT prophylaxis Code Status: Full Resuscitation Disposition: TBD Other: Total patient care time exceeds 35 minutes excluding all procedures. JOSEPH ORELLANA November 01, 2024 11:09
--- NOTE | 2024-11-01 11:14 | NUR ---
DCP: HOME Pt reports she lives with her common law of 12 yrs Antonio Hardy [phone] and their 3 kids 13,11,1 month. Kids are with her mother Angélica Hammonds [phone] while is at work. 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 Uses no DME or HH services. Pt is seen at [facility] by Dr Diaz and uses [facility] in [place]. DCP is home when medically cleared. Addendum: 11/01/24 at 1131 by JL GILLILAND SS Amended: Links added.
[2024-11-01 11:39] LABS: RAPID GROUP A STREP negative (NEGATIVE)
[2024-11-01 11:42] LABS: SARS-CoV-2, RNA, NAAT NEGATIVE SARS CoV-2 (NEGATIVE)
--- NOTE | 2024-11-01 11:42 | HMCIMG ---
US VENOUS DOPPLER BILATERAL HISTORY: Swelling COMPARISON: None TECHNIQUE: Bilateral lower extremity venous Doppler ultrasound study was performed. FINDINGS: The common femoral, femoral, popliteal, and posterior tibial veins are visualized. Normal flow with augmentation and compressibilities are demonstrated. The greater saphenous veins are also seen and grossly patent. IMPRESSION: 1. No evidence of deep venous thrombosis is seen.
[2024-11-01] MEDS: morPHINE 2 MG SYG IVP PRN (11:44)
[2024-11-01 11:48] LABS: INFLUENZA TYPE A Negative For Type A (NEGATIVE); INFLUENZA TYPE B Negative For Type B (NEGATIVE)
--- NOTE | 2024-11-01 16:49 | NUR ---
Insentive spirometer given to patient by Respiratory Therapy. Educated patient on how to use instrument. Patient verbalized understanding.
--- NOTE | 2024-11-01 18:00 | NUR ---
CALLED TO GIVE REPORT, SPOKE TO MRS. NICE TODD. SHE VERBALIZED SHE WAS NOT RECEIVING REPORT AT THIS TIME. NOTIFY ER CHARGE NURSE MR. ORR AND CONTACT AGENT PAT. PENDING INSTRUCTIONS.
--- NOTE | 2024-11-01 19:29 | HMCIMG ---
US ABDOMINAL COMPLETE HISTORY: Right flank pain COMPARISON: None TECHNIQUE: Multiple transverse and longitudinal ultrasound images of the abdomen were obtained. FINDINGS: Abdominal aorta and inferior vena cava are unremarkable. The visualized portion of the pancreas is within normal limits. Liver is echogenic consistent with liver parenchymal disease. The liver measures 15.9 cm. Small gallbladder polyp is seen measuring 4 x 3 mm. No gallstone is seen. Common duct measures 4 mm. No evidence of gallbladder wall thickening is seen. Both kidneys are seen. Right kidney measures 10.7 x 4.3 x 4.7 cm. Left kidney measures 10.5 x 4.4 x 4.8 cm. No hydronephrosis is seen of the both kidneys. There appears to be bilateral renal pelvic stones with the largest on the left measuring 7 x 7 mm and on the right measuring 5 x 5 mm. There is possible medullary nephrocalcinosis with echogenic renal medulla. Spleen measures 10.5 cm. The spleen is grossly unremarkable. IMPRESSION: 1. Small gallbladder polyp. No gallstone or ductal dilatation is seen. 2. No hydronephrosis is seen. Possible medullary nephrocalcinosis with bilateral renal pelvis stones.
[2024-11-01 21:00] VITALS: BP 143/82; PULSE 71; RESP 20; TEMP 98
--- NOTE | 2024-11-01 21:20 | NUR ---
Gave report to Josefina hu no concern voiced
[2024-11-02] VITALS (10 sets, daily range): BP systolic 120–137; BP diastolic 70–87; PULSE 58–68; RESP 17–18; TEMP 97.9–98.3; O2SAT 97
[2024-11-02] MEDS ORDERED: HYDR-3421 PO (01:15)
[2024-11-02] MEDS ORDERED: BUSP5TAB3 PO (01:15)
[2024-11-02 04:04] LABS: BASOPHILS # (AUTO) 0.04 K/uL (0.00-0.20); BASOPHILS % (AUTO) 0.3 % (0.0-5.0); EOSINOPHILS # (AUTO) 0.25 K/uL (0.00-0.70); EOSINOPHILS % (AUTO) 2.1 % (0.0-8.0); HEMATOCRIT 37.3 % (36-48); IMMATURE GRANULOCYTE ABSOLUTE 0.05 K/uL (0-1); LYMPHOCYTES # (AUTO) 3.3 K/uL (1.0-4.8); LYMPHOCYTES % (AUTO) 27.3 % (21.0-51.0); MEAN CORPUSCULAR HEMOGLOBIN 28.3 pg (27.0-33.0); MEAN CORPUSCULAR VOLUME 85.7 fL (79-99); MONOCYTES # (AUTO) 0.7 K/uL (0.1-1.0); MONOCYTES % (AUTO) 5.6 % (3.0-13.0); NEUTROPHILS # (AUTO) 7.7 K/uL (1.8-7.7); NEUTROPHILS % (AUTO) 64.3 % (40.0-77.0); PLATELET COUNT (AUTO) 261 K/uL (130-400); RED BLOOD CELL COUNT(AUTO) 4.35 MIL/uL (4.00-5.50); RED CELL DISTRIBUTION WIDTH 13.1 % (11.0-15.5); WHITE BLOOD COUNT (AUTO) 11.9 K/uL (4.8-10.8)
[2024-11-02 04:17] LABS: BILIRUBIN,TOTAL 0.5 mg/dL (0.2-1.0); CREATININE 0.8 mg/dL (0.5-1.0); POTASSIUM 3.4 mmol/L (3.5-5.1); TOTAL PROTEIN, SERUM 6.7 g/dL (6.0-8.3)
[2024-11-02 07:32] LABS: INR 0.99 (0.85-1.15); PROTHROMBIN TIME 10.5 SEC (9.6-11.6)
[2024-11-02] MEDS: acetaMINOPHEN 325 MG TAB PO PRN (08:13)
--- NOTE | 2024-11-02 08:45 | CONS ---
INFECTIOUS DISEASE CONSULTATION DATE OF SERVICE: 11/01/2024 REQUESTING PHYSICIAN: Carmela Jean NP REASON FOR CONSULTATION: Pneumonia, on antibiotic management. HISTORY OF PRESENT ILLNESS: This is a 34-year-old female with obesity, nephrolithiasis and anxiety disorder who presented to the Emergency Room with shortness of breath and some weakness. The patient was receiving antibiotic for pneumonia with Augmentin. Due to increasing cough, she decided to come to the Emergency Room. right lower lobe infiltrate. The patient also complains of right pleuritic pain. No dysuria or urinary frequency. PAST MEDICAL HISTORY: * Gestational diabetes mellitus. * Anxiety disorder. * Nephrolithiasis. * Obesity. PAST SURGICAL HISTORY: None. ALLERGIES: None. CURRENT MEDICATIONS: Include: * Azithromycin. * Ceftriaxone. * Tylenol. * Zofran. SOCIAL HISTORY: No alcohol, tobacco or illicit drug use. FAMILY HISTORY: Noncontributory. REVIEW OF SYSTEMS: Greater than 10 systems were reviewed and negative except as documented above. PHYSICAL EXAMINATION: GENERAL: Young female awake. VITAL SIGNS: Temperature 98.8, pulse 80, respirations 20, BP 141/84. EYES: No icterus. Pupils are equal and reactive. HENT: No oral thrush seen. Moist oral mucosa. NECK: Supple. No JVD or thyromegaly. LUNGS: Good air entry. Crackles in right lower side. CENTRAL NERVOUS SYSTEMS: Awake, alert, oriented x 3. No focal deficits. SKIN: No rashes, no itchiness. LYMPHATIC: No peripheral lymphadenopathy. BACK: No deformity, no pressure ulcer. HEMATOLOGY: No bleeding or petechial lesion seen. MUSCULOSKELETAL: No joint swelling, erythema or tenderness. LABORATORY DATA: Procalcitonin is negative. Sodium 139, potassium 3.8, BUN 10, creatinine 0.7. WBC 15.5, hemoglobin 13.6, platelets 270. Urinalysis . Radiology shows right lower lung atelectasis. ASSESSMENT: A 34-year-old female presenting with cough and shortness of breath. Current problems include: * Pneumonia. * Shortness of breath. * Obesity. * Leukocytosis. PLAN: * Continue ceftriaxone. * Continue azithromycin. * Continue pain management. * Continue antiemetics. * Continue oxygen. * Monitor electrolytes. * The patient will be followed up closely. Thank you for allowing me to participate in the care of this patient. TID: [id number] RECEIPT: [id number]
--- NOTE | 2024-11-02 11:52 | PN ---
[facility] PROGRESS NOTE Date of Service: November 02, 2024 Time of Service: 11:[address] Oneal SUBJECTIVE: [ This is a 34-year-old female with past medical history of kidney stones, gestational diabetes, anxiety disorder who presented to the emergency de partment today with shortness of breaths, hemoptysis, sharp pain to the right lower back. Apparently patient was seen in the emergency department two days ago for which she was diagnosed with pneumonia and was sent with antibiotic Augmentin. This morning, she reported that she was feeding her baby of 1-month-old when she cough and she noticed the blood in her cough. She decided to come to the emergency department for further evaluation. Side note patient was in the ER two days ago with complaints of shortness of breaths, pain when she is breathing that radiates to her right lower back. Patient was stating that she even felt a lot better with her reading at it does not hurt as much as she did two days ago. But she want to come to the emergency department due to hemoptysis. 11/02 patient was seen by nurse practitioner physician during rounding in room 328 lying in the bed. Today WBC are trending down 11 point nine. UA was slightly positive for leukocytosis. Urine culture is pending. Patient continues to be on Rocephin and azithromycin as recommended by ID. Patient was also seen by aquatics assistant department head. CTA of the chest was negative for the PE. Venous Doppler negative for DVT. Chest x-ray showed bilateral pulmonary infiltrate with a pleural effusion right more than left. Ultrasound of the abdomen was also performed and shows small gallbladder polyps. No gallstones or ductal dilation is seen. No hydronephrosis. 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 Stones are measuring left 7 x 7 mm and on the right measuring 5 x 5 mm. We will consult urologist for further evaluation/recommendations. We will continue to monitor patient in the meantime. A.m. labs.] REVIEW OF SYSTEMS CONSTITUTIONAL: Denies fevers, chills, or night sweats. No unintentional weight loss reported. NEUROLOGICAL: Denies headache, amaurosis fugax, motor weakness, sensory deficit, vertigo/spinning sensation, gait abnormalities, or tremors. ENT: No hearing loss, otalgia, otorrhea, rhinitis, rhinorrhea, hoarseness, or sore throat. CARDIOVASCULAR: Denies any exertional angina, dyspnea on exertion, orthopnea, paroxysmal nocturnal dyspnea, palpitations, life-threatening arrhythmias, claudication. PULMONARY: Denies any shortness of breath, phlegm/sputum, pleuritic chest pain. Complains of hemoptysis and cough SLEEP: Denies morning headaches, daytime somnolence or napping. Denies difficulty falling asleep, staying asleep, waking from sleep. Denies knowledge of snoring. GASTROINTESTINAL: Denies any type of dysphagia to either liquids or solids. Denies nausea, vomiting, pyrosis, early satiety, abdominal pain, diarrhea, constipation, or changes in stool consistency or caliber. Denies coffee-ground emesis, hematemesis, hematochezia, or melanotic stools. GENITOURINARY: Denies frequency, urgency, nocturia, hematuria or incontinence (Storage/Irritative symptoms.) Low urinary stream, straining to void, urinary intermittency or hesitancy, splitting of the voiding stream, terminal dribbling. ENDOCRINOLOGIC: Denies polyuria, polydipsia, polyphagia or heat/cold intolerances. HEMATOLOGIC: Denies thrombophilia/previous clots, or coagulopathy/bleeding disorders. ONCOLOGIC: Denies personal history of malignancy. DERMATOLOGIC: Denies rashes or pruritus. PSYCHIATRIC: Denies any suicidal or homicidal ideation. Denies hallucinations. PHYSICAL EXAM GENERAL APPEARANCE: The patient is awake, alert, and oriented, in no acute cardiopulmonary distress. NEUROLOGICAL: Cranial nerves II-XII grossly intact. Motor is 5/5 in bilateral upper and lower extremities proximal to distal. No sensory deficits. HEENT: Face is symmetric. Pupils are equal and reactive. Extraocular movements are intact. NECK: Supple. No JVD. No thyromegaly. No submental, submandibular, pre- /postauricular, occipital or supraclavicular lymphadenopathy. CHEST: Normal chest expansion. No Telemetry. LUNGS: Absence of any rales, rhonchi or any wheezing. CARDIOVASCULAR: Regular. S1 and S2 normal. No appreciable rubs, murmurs or gallops. ABDOMEN: Soft, nontender, and nondistended. There is no rebound, voluntary guarding, or rigidity. : Deferred. No Martins. EXTREMITIES: Non-edematous and not cyanotic. No clubbing. Good capillary refill. SKIN: No skin breakdown. Vital Signs (last 8hr) Date Time Temp Pulse Resp B/P (MAP) Pulse Ox O2 Delivery O2 Flow Rate FiO2 11/02/24 08:00 98.1 63 17 132/71 97 Room Air 11/02/24 04:00 97.9 68 18 120/73 96 Room Air LABS: Laboratory: Test 11/02/24 07:14 11/02/24 03:54 11/01/24 11:15 11/01/24 09:58 Range/Units Prothrombin Time 10.5 9.6-11.6 SEC Prothromb Time International Ratio 0.99 0.85-1.15 White Blood Count 11.9 H 4.8-10.8 K/uL Red Blood Count 4.35 4.00-5.50 MIL/uL Hemoglobin 12.3 12.0-16.0 g/dL Hematocrit 37.3 36-48 % Mean Corpuscular Volume 85.7 79-99 fL Mean Corpuscular Hemoglobin 28.3 27.0-33.0 pg Mean Corpuscular Hemoglobin Concent 33.0 32.0-36.0 g/dL Red Cell Distribution Width 13.1 11.0-15.5 % Platelet Count 261 130-400 K/uL Mean Platelet Volume 9.2 7.5-10.5 fL Immature Granulocyte % (Auto) 0.4 0-1 % Neutrophils (%) (Auto) 64.3 40.0-77.0 % Lymphocytes (%) (Auto) 27.3 21.0-51.0 % Monocytes (%) (Auto) 5.6 3.0-13.0 % Eosinophils (%) (Auto) 2.1 0.0-8.0 % Basophils (%) (Auto) 0.3 0.0-5.0 % Neutrophils # (Auto) 7.7 1.8-7.7 K/uL Lymphocytes # (Auto) 3.3 1.0-4.8 K/uL Monocytes # (Auto) 0.7 0.1-1.0 K/uL Eosinophils # (Auto) 0.25 0.00-0.70 K/uL Basophils # (Auto) 0.04 0.00-0.20 K/uL Absolute Immature Granulocyte (auto 0.05 0-1 K/uL Nucleated Red Blood Cells 0.0 0.0-0.19 % Sodium Level 142 136-145 mmol/L Potassium Level 3.4 L 3.5-5.1 mmol/L Chloride Level 109 101-111 mmol/L Carbon Dioxide Level 26 21-32 mmol/L Blood Urea Nitrogen 5 L 7-18 mg/dL Creatinine 0.8 0.5-1.0 mg/dL Glomerular Filtration Rate Calc 99 >90 mL/min Random Glucose 100 70-105 mg/dL Total Calcium 8.2 L 8.5-10.1 mg/dL Total Bilirubin 0.5 0.2-1.0 mg/dL Aspartate Amino Transf (AST/SGOT) 20 10-37 U/L Alanine Aminotransferase (ALT/SGPT) 39 12-78 U/L Alkaline Phosphatase 84 50-136 U/L Total Protein 6.7 6.0-8.3 g/dL Albumin 3.0 L 3.5-5.0 g/dL Influenza Type A Antigen Negative For Type A NEGATIVE Influenza Type B Antigen Negative For Type B NEGATIVE SARS-CoV-2, RNA, NAAT NEGATIVE SARS CoV-2 NEGATIVE Group A Streptococcus Rapid negative NEGATIVE Troponin I High Sensitivity < 4 L 4-50 ng/L Test 11/01/24 06:38 11/01/24 06:25 Range/Units Erythrocyte Sedimentation Rate 41 H 0-20 MM/HR D-Dimer Quantitative (PE/DVT) 1413 *H 0-500 ng/mL C-Reactive Protein, Quantitative 105.80 H 0.5-3.0 mg/L Procalcitonin < 0.05 L 0.05-0.5 ng/mL Urine Color LIGHT-YELLOW YELLOW Urine Appearance CLEAR CLEAR Urine pH 6.0 5.0-8.0 Urine Specific [place] 1.017 1.001-1.031 Urine Protein NEGATIVE NEGATIVE mg/dL Urine Glucose (UA) NEGATIVE NEGATIVE mg/dL Urine Ketones 10 H NEGATIVE mg/dL Urine Occult Blood SMALL H NEGATIVE Urine Nitrate NEGATIVE NEGATIVE Urine Bilirubin NEGATIVE NEGATIVE mg/dL Urine Urobilinogen 0.2 0.2-1.0 mg/dL Urine Leukocyte Esterase 25 H NEGATIVE Gray/uL Urine RBC 2-5 H 0-1 /HPF Urine WBC 2-5 H 0-1 /HPF Urine Squamous Epithelial Cells FEW 0-2 /HPF Urine Bacteria None None Seen /HPF Urine HCG, Qualitative NEGATIVE NEGATIVE Current Medications Medications (Trade) Dose Ordered Sig/Delores Route PRN Reason Start Time Stop Time Status Last Admin Dose Admin Acetaminophen (TYLenol 325MG TAB) 650 mg Q4H PRN PO TEMPERATURE GREATER THAN 101.5 11/01/24 08:00 12/01/24 07:59 Acetaminophen (TYLenol 325MG TAB) 650 mg Q6H PRN PO MILD PAIN (1-3) 11/01/24 08:00 12/01/24 07:59 11/02/24 08:13 650 MG Azithromycin 250 ml @ 250 mls/hr Q24H IVPB 11/01/24 09:00 11/11/24 08:59 11/01/24 08:14 250 MLS/HR Ceftriaxone Sodium (ROCEphine 1G INJ) 1 gm Q24H IVPB 11/01/24 08:00 11/11/24 07:59 11/02/24 08:12 1 GM Hydroxyzine HCl (ATArax 25MG TAB) 25 mg TID PRN PO ITCHING 11/01/24 10:00 12/01/24 09:59 Morphine Sulfate (morPHINE 2MG SYG) 2 mg Q4H PRN IVP SEVERE PAIN (7-10) 11/01/24 10:00 11/08/24 09:59 11/01/24 11:44 2 MG Ondansetron HCl (zoFRAN 4MG INJ) 4 mg Q6H PRN IVP NAUSEA/VOMITING 11/01/24 08:00 12/01/24 07:59 Sodium Chloride 1,000 ml @ 100 mls/hr Q10H IV 11/01/24 08:00 12/01/24 07:59 11/01/24 21:39 100 MLS/HR DIAGNOSTICS / RADIOLOGY: [ ] ASSESSMENT: [Right lower lobe pneumonia, atelectasis POA Failed outpatient antibiotic therapy, POA Tiny bilateral pleural effusion, POA Elevated D-dimer POA Acute complicated cystitis POA Small gallbladder polyps per ultrasound abdomen POA Possible medullary nephrocalcinosis occasions with bilateral renal pelvic stones per ultrasound abdomen POA Electrolyte imbalance hypokalemia 3.4 Moderate malnutrition POA Ruled out PE, POA Ruled out DVT, POA Leukocytosis, POA Hyperglycemia, POA Former smoker ] PLAN: [ CTA chest for PE negative Chest x-ray bilateral pulmonary infiltrate pleural effusions right more than left Venous Doppler negative for DVT. Ultrasound abdomen shows small gallbladder polyps. Possible medullary nephrocalcinosis with bilateral renal pelvic stones Continue azithromycin and Rocephin per ID Patient was evaluated by aquatics assistant department head pending recommendations Continue NS at 100 mL/hour GI and DVT prophylaxis Prn medications for fever, pain, anxiety nausea vomiting A.m. labs COVID negative Flu a and B negative Strep negative Patient is a full code \ ATTESTATION BY PHYSICIAN I have seen and examined the patient. I reviewed the documentation, medical decision making, and treatment plan as noted by the mid-level provider above. I agree with the findings and plan of care. FAMILIA Adame MD [employer] [employer] November 02, 2024 11:52
[2024-11-02] MEDS: PoTASSium chloRIDE 20MEQ ER 20 MEQ ERTAB PO ONE ×2 (12:00→20:17)
--- NOTE | 2024-11-02 13:46 | PN ---
[facility] PROGRESS NOTE Date Patient Seen: November 02, 2024 Time of Visit: 13:46 Supervising Physician: [Dr. Parmar] Primary Care Physician: [ ] Outpatient Specialists: [ ] Inpatient Consults: [BIS] PROBLEM LIST: Right lower lobe atelectasis, POA Small bilateral pleural effusion, POA Bilateral renal calculi, 7X7mm on Left and 5X5mm on Right per abd U/S 11/01 Gallbladder polyp 4X3mm Elevated D-dimer Leukocytosis, POA Hyperglycemia, POA Former smoker Plan: Urology consult pending Ordered COVID, and strep swabs Continue incentive spirometer Pending mycoplasma and Legionella Order REANNA screen Venous Doppler negative Further management per hospital course INTERVAL HISTORY: [Patient is evaluated at bedside. She feels less pain since admission. Her abdominal ultrasound revealed bilateral renal calculi, larger than previously noted with the largest measuring 7 x 7 mm on the left side. Also noted to have 5 x 5 mm renal calculi on right side. Patient admits a history of kidney stones. Urology has been consulted for evaluation. She continues on IV antibiotics. Has IS at bedside and is using as directed. Urine culture remains negative.] REVIEW OF SYSTEMS: 12 point ROS reviewed with patient. Pertinent positives mentioned above. Otherwise negative. PHYSICAL EXAM: GENERAL: alert, weak, awake oriented x 3 HEENT: EOMI, Sclera non icteric, moist mucosa NECK: Supple, no JVD, trachea midline LUNGS: Clear breath sounds bilaterally. No wheezes HEART: Regular rate and rhythm. Normal S1 and S2, without murmurs ABD: Abdomen soft, nontender. Bowel sounds present EXT: No clubbing cyanosis or edema NEURO: Alert and oriented to person, follows commands Vital Signs (last 8hr) Date Time Temp Pulse Resp B/P (MAP) Pulse Ox O2 Delivery O2 Flow Rate FiO2 11/02/24 11:58 98.1 61 17 137/81 97 Room Air 11/02/24 08:00 98.1 63 17 132/71 97 Room Air LABS: Hematology Labs: Test 11/02/24 03:54 11/01/24 06:38 Range/Units White Blood Count 11.9 H 4.8-10.8 K/uL Red Blood Count 4.35 4.00-5.50 MIL/uL Hemoglobin 12.3 12.0-16.0 g/dL Hematocrit 37.3 36-48 % Mean Corpuscular Volume 85.7 79-99 fL Mean Corpuscular Hemoglobin 28.3 27.0-33.0 pg Mean Corpuscular Hemoglobin Concent 33.0 32.0-36.0 g/dL Red Cell Distribution Width 13.1 11.0-15.5 % Platelet Count 261 130-400 K/uL Mean Platelet Volume 9.2 7.5-10.5 fL Immature Granulocyte % (Auto) 0.4 0-1 % Neutrophils (%) (Auto) 64.3 40.0-77.0 % Lymphocytes (%) (Auto) 27.3 21.0-51.0 % Monocytes (%) (Auto) 5.6 3.0-13.0 % Eosinophils (%) (Auto) 2.1 0.0-8.0 % Basophils (%) (Auto) 0.3 0.0-5.0 % Neutrophils # (Auto) 7.7 1.8-7.7 K/uL Lymphocytes # (Auto) 3.3 1.0-4.8 K/uL Monocytes # (Auto) 0.7 0.1-1.0 K/uL Eosinophils # (Auto) 0.25 0.00-0.70 K/uL Basophils # (Auto) 0.04 0.00-0.20 K/uL Absolute Immature Granulocyte (auto 0.05 0-1 K/uL Nucleated Red Blood Cells 0.0 0.0-0.19 % Erythrocyte Sedimentation Rate 41 H 0-20 MM/HR Chemistry Labs: Test 11/02/24 03:54 11/01/24 09:58 11/01/24 06:38 Range/Units Sodium Level 142 136-145 mmol/L Potassium Level 3.4 L 3.5-5.1 mmol/L Chloride Level 109 101-111 mmol/L Carbon Dioxide Level 26 21-32 mmol/L Blood Urea Nitrogen 5 L 7-18 mg/dL Creatinine 0.8 0.5-1.0 mg/dL Glomerular Filtration Rate Calc 99 >90 mL/min Random Glucose 100 70-105 mg/dL Total Calcium 8.2 L 8.5-10.1 mg/dL Total Bilirubin 0.5 0.2-1.0 mg/dL Aspartate Amino Transf (AST/SGOT) 20 10-37 U/L Alanine Aminotransferase (ALT/SGPT) 39 12-78 U/L Alkaline Phosphatase 84 50-136 U/L Total Protein 6.7 6.0-8.3 g/dL Albumin 3.0 L 3.5-5.0 g/dL Troponin I High Sensitivity < 4 L 4-50 ng/L C-Reactive Protein, Quantitative 105.80 H 0.5-3.0 mg/L Procalcitonin < 0.05 L 0.05-0.5 ng/mL Coagulation Labs: Test 11/02/24 07:14 11/01/24 06:38 Range/Units Prothrombin Time 10.5 9.6-11.6 SEC Prothromb Time International Ratio 0.99 0.85-1.15 D-Dimer Quantitative (PE/DVT) 1413 *H 0-500 ng/mL DIAGNOSTICS / RADIOLOGY RESULTS: [ ] PLAN NEURO: Minimize central acting medications as possible. Maintain fall precautions, adequate lighting during the day PULMONARY: Supplemental 02 as needed. Maintain aspiration precautions at all times CARDIOVASCULAR: Follow hemodynamics. Vital signs per facility protocol GI & NUTRITION: Continue with nutritional support. Continue stool softeners and laxatives as needed. KIDNEYS & ELECTROLYTES: Strict monitoring of intake, output and overall fluid balance. Avoid nephrotoxic medications to the extent possible. Medications to be dosed according to renal function. Monitor electrolytes and replace as needed ENDOCRINE: Maintain blood glucose between 100-180 at all times. Hypoglycemia protocol in place INFECTIOUS DISEASE: Trend temperature, WBC and procalcitonin level Follow cultures, deescalate antibiotics as soon as possible. Panculture if new onset fever ONCOLOGY/HEMATOLOGY/COAGULATION: Monitor for s/s of bleeding Monitor hemoglobin, coagulation studies as needed SKIN: Pressure ulcer prevention per facility protocol Specialty mattress ORTHO/REHAB: Continue PT/OT Prophylaxis: Continue GI and DVT prophylaxis Code Status: Full Resuscitation Disposition: TBD Other: JOSEPH ORELLANA November 02, 2024 13:46
--- NOTE | 2024-11-02 14:02 | NUR ---
DR. Rasheed AT BEDSIDE. TO CONTINUE ANTIBIOTICS. NO NEW ORDERS AT THIS TIME.
--- NOTE | 2024-11-02 19:56 | PN ---
INFECTIOUS DISEASE FOLLOWUP NOTE DATE OF SERVICE: 11/02/2024. SUBJECTIVE: The patient is seen and examined at bedside. No fever, no chills. No bleeding tendency. Cough is better. Pleuritic pain also is better. Tolerating antibiotic. No dysuria or hematuria. No rashes or itchiness. OBJECTIVE: VITAL SIGNS: Temperature 98.0. EYES: No icterus. Pupils equal and reactive. HENT: No oral thrush seen. Moist oral mucosa. NECK: Supple. No JVD or thyromegaly. LUNGS: Good air entry. No rales. No rhonchi. CARDIOVASCULAR: S1 and S2, regular. No murmur heard. ABDOMEN: Obese, soft, nontender. Bowel sound is present. CENTRAL NERVOUS SYSTEM: Awake, alert, oriented x 3. No focal deficits. SKIN: No rashes, no itchiness. LYMPHATIC: No peripheral lymphadenopathy. BACK: No deformity. No pressure ulcer. MUSCULOSKELETAL: No joint swelling, erythema, or tenderness. ASSESSMENT: A 34-year-old female, presented with cough. CURRENT PROBLEMS: Include: * Pneumonia. * Leukocytosis. * Shortness of breath. PLAN: * Continue ceftriaxone. * Continue azithromycin. * Follow up cultures. * Continue pain management. * Continue DVT prophylaxis. * Monitor electrolytes. TID: [id number] RECEIPT: [id number]
[2024-11-02] MEDS: busPIRone HCL 5 MG TABLET PO SCH (22:22)
[2024-11-02] MEDS: hydrOXYzine 25 MG TABLET PO SCH (22:22)
[2024-11-03] VITALS (8 sets, daily range): BP systolic 137–143; BP diastolic 76–93; PULSE 52–69; RESP 16–20; TEMP 97.7–98.7; O2SAT 99
[2024-11-03] MEDS: busPIRone HCL 5 MG TABLET PO SCH (09:02)
[2024-11-03 10:05] LABS: BASOPHILS # (AUTO) 0.04 K/uL (0.00-0.20); BASOPHILS % (AUTO) 0.4 % (0.0-5.0); EOSINOPHILS # (AUTO) 0.18 K/uL (0.00-0.70); EOSINOPHILS % (AUTO) 1.6 % (0.0-8.0); HEMATOCRIT 39.3 % (36-48); IMMATURE GRANULOCYTE ABSOLUTE 0.05 K/uL (0-1); LYMPHOCYTES # (AUTO) 2.4 K/uL (1.0-4.8); LYMPHOCYTES % (AUTO) 21.2 % (21.0-51.0); MEAN CORPUSCULAR HEMOGLOBIN 28.4 pg (27.0-33.0); MEAN CORPUSCULAR HGB CONC 33.3 g/dL (32.0-36.0); MEAN CORPUSCULAR VOLUME 85.2 fL (79-99); MONOCYTES # (AUTO) 0.6 K/uL (0.1-1.0); MONOCYTES % (AUTO) 5.5 % (3.0-13.0); NEUTROPHILS # (AUTO) 7.8 K/uL (1.8-7.7); NEUTROPHILS % (AUTO) 70.8 % (40.0-77.0); PLATELET COUNT (AUTO) 282 K/uL (130-400); RED BLOOD CELL COUNT(AUTO) 4.61 MIL/uL (4.00-5.50); RED CELL DISTRIBUTION WIDTH 12.9 % (11.0-15.5); WHITE BLOOD COUNT (AUTO) 11.1 K/uL (4.8-10.8)
[2024-11-03 10:15] LABS: CREATININE 0.7 mg/dL (0.5-1.0); POTASSIUM 4.1 mmol/L (3.5-5.1)
[2024-11-03 10:20] LABS: ALBUMIN 3.1 g/dL (3.5-5.0); BILIRUBIN,TOTAL 0.3 mg/dL (0.2-1.0)
[2024-11-03] MEDS: AZITHROMYCIN 500MG+NS 250ML 250 ML IVPB SCH (12:01)
--- NOTE | 2024-11-03 12:20 | NUR ---
DR. SMALL AT BEDSIDE. NO NEW ORDERS AT THIS TIME.
--- NOTE | 2024-11-03 12:24 | PN ---
[facility] PROGRESS NOTE Date Patient Seen: November 03, 2024 Time of Visit: 12:20 Supervising Physician: [Dr. Parmar] Primary Care Physician: [ ] Outpatient Specialists: [ ] Inpatient Consults: [BIS] PROBLEM LIST: Right lower lobe atelectasis, POA Small bilateral pleural effusion, POA Bilateral renal calculi, 7X7mm on Left and 5X5mm on Right per abd U/S 11/01 Gallbladder polyp 4X3mm Elevated D-dimer Leukocytosis, POA Hyperglycemia, POA Former smoker Plan: Urology consult pending Ordered COVID, and strep swabs Continue incentive spirometer Pending mycoplasma and Legionella REANNA screen negative Venous Doppler negative Further management per hospital course INTERVAL HISTORY: [Patient is evaluated at bedside. She feels less pain since admission. Her abdominal ultrasound revealed bilateral renal calculi, larger than previously noted with the largest measuring 7 x 7 mm on the left side. Also noted to have 5 x 5 mm renal calculi on right side. Patient admits a history of kidney stones. Urology has been consulted for evaluation. She continues on IV antibiotics. Has IS at bedside and is using as directed. Urine culture remains negative.] 11/03 patient is evaluated at bedside. She continues with right flank pain, notices with deep inspiration. She does use IS at bedside. No fever reported overnight. She continues on room air saturating well. She denies any nausea or vomiting. Urology has been consulted for evaluation of renal stone, pending evaluation. She continues on antibiotics. WBCs are downtrending, CMP is unremarkable. REANNA screen is negative. Urine cultures negative, procalcitonin normal. REVIEW OF SYSTEMS: 12 point ROS reviewed with patient. Pertinent positives mentioned above. Otherwise negative. PHYSICAL EXAM: GENERAL: alert, weak, awake oriented x 3 HEENT: EOMI, Sclera non icteric, moist mucosa NECK: Supple, no JVD, trachea midline LUNGS: Clear breath sounds bilaterally. No wheezes HEART: Regular rate and rhythm. Normal S1 and S2, without murmurs ABD: Abdomen soft, nontender. Bowel sounds present EXT: No clubbing cyanosis or edema NEURO: Alert and oriented to person, follows commands Vital Signs (last 8hr) Date Time Temp Pulse Resp B/P (MAP) Pulse Ox O2 Delivery O2 Flow Rate FiO2 11/03/24 12:00 98.8 52 18 137/77 98 Room Air 11/03/24 08:00 97.9 67 18 140/83 99 Room Air LABS: Hematology Labs: Test 11/03/24 10:00 Range/Units White Blood Count 11.1 H 4.8-10.8 K/uL Red Blood Count 4.61 4.00-5.50 MIL/uL Hemoglobin 13.1 12.0-16.0 g/dL Hematocrit 39.3 36-48 % Mean Corpuscular Volume 85.2 79-99 fL Mean Corpuscular Hemoglobin 28.4 27.0-33.0 pg Mean Corpuscular Hemoglobin Concent 33.3 32.0-36.0 g/dL Red Cell Distribution Width 12.9 11.0-15.5 % Platelet Count 282 130-400 K/uL Mean Platelet Volume 8.7 7.5-10.5 fL Immature Granulocyte % (Auto) 0.5 0-1 % Neutrophils (%) (Auto) 70.8 40.0-77.0 % Lymphocytes (%) (Auto) 21.2 21.0-51.0 % Monocytes (%) (Auto) 5.5 3.0-13.0 % Eosinophils (%) (Auto) 1.6 0.0-8.0 % Basophils (%) (Auto) 0.4 0.0-5.0 % Neutrophils # (Auto) 7.8 H 1.8-7.7 K/uL Lymphocytes # (Auto) 2.4 1.0-4.8 K/uL Monocytes # (Auto) 0.6 0.1-1.0 K/uL Eosinophils # (Auto) 0.18 0.00-0.70 K/uL Basophils # (Auto) 0.04 0.00-0.20 K/uL Absolute Immature Granulocyte (auto 0.05 0-1 K/uL Nucleated Red Blood Cells 0.0 0.0-0.19 % Chemistry Labs: Test 11/03/24 10:00 Range/Units Sodium Level 143 136-145 mmol/L Potassium Level 4.1 3.5-5.1 mmol/L Chloride Level 109 101-111 mmol/L Carbon Dioxide Level 26 21-32 mmol/L Blood Urea Nitrogen 5 L 7-18 mg/dL Creatinine 0.7 0.5-1.0 mg/dL Glomerular Filtration Rate Calc 116 >90 mL/min Random Glucose 102 70-105 mg/dL Total Calcium 8.6 8.5-10.1 mg/dL Total Bilirubin 0.3 0.2-1.0 mg/dL Aspartate Amino Transf (AST/SGOT) 20 10-37 U/L Alanine Aminotransferase (ALT/SGPT) 40 12-78 U/L Alkaline Phosphatase 92 50-136 U/L Total Protein 7.0 6.0-8.3 g/dL Albumin 3.1 L 3.5-5.0 g/dL Coagulation Labs: Test 11/02/24 07:14 Range/Units Prothrombin Time 10.5 9.6-11.6 SEC Prothromb Time International Ratio 0.99 0.85-1.15 DIAGNOSTICS / RADIOLOGY RESULTS: [ ] PLAN NEURO: Minimize central acting medications as possible. Maintain fall precautions, adequate lighting during the day PULMONARY: Supplemental 02 as needed. Maintain aspiration precautions at all times CARDIOVASCULAR: Follow hemodynamics. Vital signs per facility protocol GI & NUTRITION: Continue with nutritional support. Continue stool softeners and laxatives as needed. KIDNEYS & ELECTROLYTES: Strict monitoring of intake, output and overall fluid balance. Avoid nephrotoxic medications to the extent possible. Medications to be dosed according to renal function. Monitor electrolytes and replace as needed ENDOCRINE: Maintain blood glucose between 100-180 at all times. Hypoglycemia protocol in place INFECTIOUS DISEASE: Trend temperature, WBC and procalcitonin level Follow cultures, deescalate antibiotics as soon as possible. Panculture if new onset fever ONCOLOGY/HEMATOLOGY/COAGULATION: Monitor for s/s of bleeding Monitor hemoglobin, coagulation studies as needed SKIN: Pressure ulcer prevention per facility protocol Specialty mattress ORTHO/REHAB: Continue PT/OT Prophylaxis: Continue GI and DVT prophylaxis Code Status: Full Resuscitation Disposition: TBD Other: JOSEPH ORELLANA November 03, 2024 12:24
--- NOTE | 2024-11-03 12:43 | PN ---
[facility] PROGRESS NOTE Date of Service: November 03, 2024 Time of Service: 12:39 Attending doctor Jm SUBJECTIVE: [ This is a 34-year-old female with past medical history of kidney stones, gestational diabetes, anxiety disorder who presented to the emergency department today with shortness of breaths, hemoptysis, sharp pain to the right lower back. Apparently patient was seen in the emergency department two days ago for which she was diagnosed with pneumonia and was sent with antibiotic Augmentin. This morning, she reported that she was feeding her baby of 1-month-old when she cough and she noticed the blood in her cough. She decided to come to the emergency department for further evaluation. Side note patient was in the ER two days ago with complaints of shortness of breaths, pain when she is breathing that radiates to her right lower back. Patient was stating that she even felt a lot better with her reading at it does not hurt as much as she did two days ago. But she want to come to the emergency department due to hemoptysis. 11/02 patient was seen by nurse practitioner physician during rounding in room 328 lying in the bed. Today WBC are trending down 11 point nine. UA was slightly positive for leukocytosis. Urine culture is pending. Patient barbara nues to be on Rocephin and azithromycin as recommended by ID. Patient was also seen by investment specialist. CTA of the chest was negative for the PE. Venous Doppler negative for DVT. Chest x-ray showed bilateral pulmonary infiltrate with a pleural effusion right more than left. Ultrasound of the abdomen was also performed and shows small gallbladder polyps. No gallstones or ductal dilation is seen. No hydronephrosis. 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 Stones are measuring left 7 x 7 mm and on the right measuring 5 x 5 mm. We will consult urologist for further evaluation/recommendations. We will continue to monitor patient in the meantime. A.m. labs. 11/03 patient was seen by REGISTERED NURSE MIDWIFE and physician. Final urine culture is negative. Patient is pending evaluation of urologist. Patient is pending recommendations of antibiotics per ID. Patient continues to have right flank pain, noticed with a deep inspiration. Patient is using her IS at the bedside. No fevers overnig ht. Patient is on room air satting 99%. Patient continues antibiotic Rocephin and azithromycin. WBC are trending down. Procalcitonin normal. We will continue to monitor patient in the meantime. A.m. labs. Anticipated discharge within 24 hours.] REVIEW OF SYSTEMS CONSTITUTIONAL: Denies fevers, chills, or night sweats. No unintentional weight loss reported. NEUROLOGICAL: Denies headache, amaurosis fugax, motor weakness, sensory defici t, vertigo/spinning sensation, gait abnormalities, or tremors. ENT: No hearing loss, otalgia, otorrhea, rhinitis, rhinorrhea, hoarseness, or sore throat. CARDIOVASCULAR: Denies any exertional angina, dyspnea on exertion, orthopnea, paroxysmal nocturnal dyspnea, palpitations, life-threatening arrhythmias, claudication. PULMONARY: Denies any shortness of breath, phlegm/sputum, pleuritic chest pain. Complains of cough SLEEP: Denies morning headaches, daytime somnolence or napping. Denies difficulty falling asleep, staying asleep, waking from sleep. Denies knowledge of snoring. GASTROINTESTINAL: Denies any type of dysphagia to either liquids or solids. Denies nausea, vomiting, pyrosis, early satiety, abdominal pain, diarrhea, constipation, or changes in stool consistency or caliber. Denies coffee-ground emesis, hematemesis, hematochezia, or melanotic stools. GENITOURINARY: Denies frequency, urgency, nocturia, hematuria or incontinence (Storage/Irritative symptoms.) Low urinary stream, straining to void, urinary intermittency or hesitancy, splitting of the voiding stream, terminal dribbling. ENDOCRINOLOGIC: Denies polyuria, polydipsia, polyphagia or heat/cold intolerances. HEMATOLOGIC: Denies thrombophilia/previous clots, or coagulopathy/bleeding disorders. ONCOLOGIC: Denies personal history of malignancy. DERMATOLOGIC: Denies rashes or pruritus. PSYCHIATRIC: Denies any suicidal or homicidal ideation. Denies hallucinations. PHYSICAL EXAM GENERAL APPEARANCE: The patient is awake, alert, and oriented, in no acute cardiopulmonary distress. NEUROLOGICAL: Cranial nerves II-XII grossly intact. Motor is 5/5 in bilateral upper and lower extremities proximal to distal. No sensory deficits. HEENT: Face is symmetric. Pupils are equal and reactive. Extraocular movements are intact. NECK: Supple. No JVD. No thyromegaly. No submental, submandibular, pre- /postauricular, occipital or supraclavicular lymphadenopathy. CHEST: Normal chest expansion. No Telemetry. LUNGS: Absence of any rales, rhonchi or any wheezing. CARDIOVASCULAR: Regular. S1 and S2 normal. No appreciable rubs, murmurs or gallops. ABDOMEN: Soft, nontender, and nondistended. There is no rebound, voluntary guarding, or rigidity. : Deferred. No Martins. EXTREMITIES: Non-edematous and not cyanotic. No clubbing. Good capillary refill. SKIN: No skin breakdown. Vital Signs (last 8hr) Date Time Temp Pulse Resp B/P (MAP) Pulse Ox O2 Delivery O2 Flow Rate FiO2 11/03/24 12:00 98.8 52 18 137/77 98 Room Air 11/03/24 08:00 97.9 67 18 140/83 99 Room Air LABS: Laboratory: Test 11/03/24 10:00 11/02/24 07:14 Range/Units White Blood Count 11.1 H 4.8-10.8 K/uL Red Blood Count 4.61 4.00-5.50 MIL/uL Hemoglobin 13.1 12.0-16.0 g/dL Hematocrit 39.3 36-48 % Mean Corpuscular Volume 85.2 79-99 fL Mean Corpuscular Hemoglobin 28.4 27.0-33.0 pg Mean Corpuscular Hemoglobin Concent 33.3 32.0-36.0 g/dL Red Cell Distribution Width 12.9 11.0-15.5 % Platelet Count 282 130-400 K/uL Mean Platelet Volume 8.7 7.5-10.5 fL Immature Granulocyte % (Auto) 0.5 0-1 % Neutrophils (%) (Auto) 70.8 40.0-77.0 % Lymphocytes (%) (Auto) 21.2 21.0-51.0 % Monocytes (%) (Auto) 5.5 3.0-13.0 % Eosinophils (%) (Auto) 1.6 0.0-8.0 % Basophils (%) (Auto) 0.4 0.0-5.0 % Neutrophils # (Auto) 7.8 H 1.8-7.7 K/uL Lymphocytes # (Auto) 2.4 1.0-4.8 K/uL Monocytes # (Auto) 0.6 0.1-1.0 K/uL Eosinophils # (Auto) 0.18 0.00-0.70 K/uL Basophils # (Auto) 0.04 0.00-0.20 K/uL Absolute Immature Granulocyte (auto 0.05 0-1 K/uL Nucleated Red Blood Cells 0.0 0.0-0.19 % Sodium Level 143 136-145 mmol/L Potassium Level 4.1 3.5-5.1 mmol/L Chloride Level 109 101-111 mmol/L Carbon Dioxide Level 26 21-32 mmol/L Blood Urea Nitrogen 5 L 7-18 mg/dL Creatinine 0.7 0.5-1.0 mg/dL Glomerular Filtration Rate Calc 116 >90 mL/min Random Glucose 102 70-105 mg/dL Total Calcium 8.6 8.5-10.1 mg/dL Total Bilirubin 0.3 0.2-1.0 mg/dL Aspartate Amino Transf (AST/SGOT) 20 10-37 U/L Alanine Aminotransferase (ALT/SGPT) 40 12-78 U/L Alkaline Phosphatase 92 50-136 U/L Total Protein 7.0 6.0-8.3 g/dL Albumin 3.1 L 3.5-5.0 g/dL Prothrombin Time 10.5 9.6-11.6 SEC Prothromb Time International Ratio 0.99 0.85-1.15 Anti-Nuclear Antibody Screen Negative Negative MARCELL-1 Antibody SS-A/Ro Antibody SS-B/La Antibody Sm (Ornelas) IgG Antibody, Quant STEELER IgG Antibody, Quantitative Scl-70 (Scleroderma) Antibody Anti-Double Strand DNA Antibody Anti-Centromere IgG Antibody Current Medications Medications (Trade) Dose Ordered Sig/Delores Route PRN Reason Start Time Stop Time Status Last Admin Dose Admin Acetaminophen (TYLenol 325MG TAB) 650 mg Q4H PRN PO TEMPERATURE GREATER THAN 101.5 11/01/24 08:00 12/01/24 07:59 Acetaminophen (TYLenol 325MG TAB) 650 mg Q6H PRN PO MILD PAIN (1-3) 11/01/24 08:00 12/01/24 07:59 11/02/24 20:25 650 MG Azithromycin 250 ml @ 250 mls/hr Q24H IVPB 11/01/24 09:00 11/03/24 09:02 DC 11/02/24 11:59 250 MLS/HR Azithromycin 250 ml @ 250 mls/hr Q24H IVPB 11/03/24 12:00 11/13/24 11:59 11/03/24 12:01 250 MLS/HR Buspirone HCl (BUspar) 5 mg BID PO 11/02/24 21:00 11/03/24 02:29 DC 11/02/24 22:22 5 MG Buspirone HCl (BUspar) 5 mg DAILY PO 11/03/24 09:00 12/02/24 20:59 11/03/24 09:02 5 MG Ceftriaxone Sodium (ROCEphine 1G INJ) 1 gm Q24H IVPB 11/01/24 08:00 11/11/24 07:59 11/03/24 09:02 1 GM Hydroxyzine HCl (ATArax 25MG TAB) 25 mg HS PO 11/02/24 21:00 12/02/24 20:59 11/02/24 22:22 25 MG Hydroxyzine HCl (ATArax 25MG TAB) 25 mg TID PRN PO ITCHING 11/01/24 10:00 12/01/24 09:59 Morphine Sulfate (morPHINE 2MG SYG) 2 mg Q4H PRN IVP SEVERE PAIN (7-10) 11/01/24 10:00 11/08/24 09:59 11/01/24 11:44 2 MG Ondansetron HCl (zoFRAN 4MG INJ) 4 mg Q6H PRN IVP NAUSEA/VOMITING 11/01/24 08:00 12/01/24 07:59 Sodium Chloride 1,000 ml @ 100 mls/hr Q10H IV 11/01/24 08:00 12/01/24 07:59 11/03/24 09:19 100 MLS/HR DIAGNOSTICS / RADIOLOGY: [ ] ASSESSMENT: [Right lower lobe pneumonia, atelectasis POA Failed outpatient antibiotic therapy, POA Tiny bilateral pleural effusion, POA Elevated D-dimer POA Acute complicated cystitis POA Small gallbladder polyps per ultrasound abdomen POA 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 Ultrasound abdomen shows small gallbladder polyps. 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 labs COVID negative Flu a and B negative Strep negative Final urine culture negative Patient is a full code \ ATTESTATION BY PHYSICIAN I have seen and examined the patient. I reviewed the documentation, medical d ecision making, and treatment plan as noted by the mid-level provider above. I agree with the findings and plan of care. FAMILIA Adame MD MEDICAL ASSISTANT DERMATOLOGY November 03, 2024 12:43
--- NOTE | 2024-11-03 16:19 | CONS ---
REQUESTING PHYSICIAN: Derek Oneal MD REASON FOR CONSULTATION: Nonobstructive bilateral kidney stones. HISTORY OF PRESENT ILLNESS: A 34-year-old female presents to the hospital because of incompletely treated pneumonia with hemoptysis, apparently complained of some back pain. She had delivered her baby about a month ago. The patient was admitted because of failed outpatient therapy for pneumonia. CT scan noncontrast documents the presence of bilateral nonobstructive upper pole kidney stones measuring 1-2 mm each, right and left sides. Apparently, she also got an ultrasound done subsequent to that suggested that she had nephrocalcinosis with 7 mm stones. Consultation with Urology requested for this reason. The patient got lying in bed comfortably. No back pain. No dysuria. No gross hematuria. Did have a history she said of kidney stones one year ago where allegedly stones passed on their own. She did not retrieve them. As such, it is not clear whether they ever passed at all. Imaging studies for that admission in this hospital are not immediately available for review either. The patient is currently sitting up in bed, comfortably watching television. ALLERGIES: Unknown. MEDICATIONS: Zithromax and Rocephin. She is also on K-Jessica, BuSpar, hydroxyzine. PAST MEDICAL HISTORY: Gestational diabetes. PAST SURGICAL HISTORY: Negative. SOCIAL HISTORY: The patient recently had a child one month ago. Does not smoke or drink. FAMILY HISTORY: Negative for kidney stones. REVIEW OF SYSTEMS: She has no shortness of breath, no chest pain. She does have a cough. She has no headaches or dizziness. No nosebleeds. No joint pain, joint swelling, limitation of movement, night sweats, fever, chills or skin rash. PHYSICAL EXAMINATION: GENERAL: Well-developed female, in no distress whatsoever. VITAL SIGNS: The patient's temperature is 98, blood pressure is 125/90 with a pulse of 90. NECK: No adenopathy or supraclavicular masses palpable. LUNGS: Lung whitehead have basal crepitations bilaterally. BACK: Has no CVA tenderness. ABDOMEN: Full, soft, nontender. EXTERNAL GENITALIA: Deferred. LABORATORY DATA: Today show a white count of 11 down from 15, hematocrit is 40. The patient's platelet count is 270. The patient's sodium is 139, potassium 3.8 and a BUN and creatinine of 10 was 0.7. Her urinalysis on admission showed clear yellow urine. Specific gravity of 1017. Protein, glucose and ketones were all negative. Nitrates were negative. Leukocyte esterase was 25. She had 2-5 white cells, 2-5 rbc's in urine. IMAGING STUDIES: CT scan of the abdomen and pelvis carefully reviewed, tiny calcifications right and left upper pole on both kidneys with a second tiny calcification less than 1 mm in the lower pole of the left kidney. Each of these are nonobstructive. There is no evidence of nephrocalcinosis whatsoever. ASSESSMENT: Calcifications both kidneys, consistent with nonobstructive kidney stones at this time. Differential diagnosis includes papillary calcifications. RECOMMENDATIONS: * Increase off-load intake. * Follow up with PCP for referral to Urology. * Will need an outpatient workup to include 24-hour urine for metabolic workup and determination as to whether or not any of these calcifications need to be intervened upon with extracorporeal shockwave lithotripsy or other intervention. At this time, no surgical urologic intervention is planned. Urology will sign off. Thank you for the opportunity for providing consultation on your patient. The patient explained the importance of compliance. TID: [id number] RECEIPT: [id number]
--- NOTE | 2024-11-03 18:08 | PN ---
INFECTIOUS DISEASE PROGRESS NOTE Date of Service: November 03, 2024 SUBJECTIVE: This is a 34-year-old female patient who was seen and examined at bedside in room 328. Patient is awake, alert and oriented x3. Patient was up ambulating in the room without difficulty. Still experiencing some coughing episodes but nonproductive. The WBC continues trending down and is 11.1 today. No reports of fever, temperature is 97.9. We will continue on azithromycin and ceftriaxone and follow up on the final culture results. PHYSICAL EXAM EYES: Anicteric. Pupils equal and reactive. HENT: No oral thrush seen, moist Oral mucosa NECK: Supple, no JVD or thyromegaly. LUNGS: Good air entry. No rales, no rhonchi. Dry cough. CARDIOVASCULAR: S1, S2 regular. No murmur heard. ABDOMEN: Soft, non tender, bowel sounds present, no organomegaly CENTRAL NERVOUS SYSTEM: Awake, alert, oriented x 3. SKIN: No rashes, no swelling. LYMPHATICS: No peripheral lymphadenopathy MUSCULOSKELETAL: No joint swelling, erythema or tenderness. EXTREMITIES: No cyanosis or clubbing BACK: No deformity, no pressure ulcer. GENITOURINARY: No dysuria or hematuria. Vital Sign (Last 12 Hours) 11/03/24 11/03/24 11/03/24 08:00 12:00 16:00 Temp 97.9 98.8 97.9 Pulse 67 52 60 Resp 18 18 19 B/P (MAP) 140/83 137/77 140/93 Pulse Ox 99 98 96 O2 Delivery Room Air Room Air Room Air Intake & Output (last 24hrs) 11/02/24 11/02/24 11/03/24 15:00 23:00 07:00 Intake Total 1770.0 ml 1440.0 ml Balance 1770.0 ml 1440.0 ml LABS: Laboratory: Test 11/03/24 10:00 11/02/24 07:14 Range/Units White Blood Count 11.1 H 4.8-10.8 K/uL Red Blood Count 4.61 4.00-5.50 MIL/uL Hemoglobin 13.1 12.0-16.0 g/dL Hematocrit 39.3 36-48 % Mean Corpuscular Volume 85.2 79-99 fL Mean Corpuscular Hemoglobin 28.4 27.0-33.0 pg Mean Corpuscular Hemoglobin Concent 33.3 32.0-36.0 g/dL Red Cell Distribution Width 12.9 11.0-15.5 % Platelet Count 282 130-400 K/uL Mean Platelet Volume 8.7 7.5-10.5 fL Immature Granulocyte % (Auto) 0.5 0-1 % Neutrophils (%) (Auto) 70.8 40.0-77.0 % Lymphocytes (%) (Auto) 21.2 21.0-51.0 % Monocytes (%) (Auto) 5.5 3.0-13.0 % Eosinophils (%) (Auto) 1.6 0.0-8.0 % Basophils (%) (Auto) 0.4 0.0-5.0 % Neutrophils # (Auto) 7.8 H 1.8-7.7 K/uL Lymphocytes # (Auto) 2.4 1.0-4.8 K/uL Monocytes # (Auto) 0.6 0.1-1.0 K/uL Eosinophils # (Auto) 0.18 0.00-0.70 K/uL Basophils # (Auto) 0.04 0.00-0.20 K/uL Absolute Immature Granulocyte (auto 0.05 0-1 K/uL Nucleated Red Blood Cells 0.0 0.0-0.19 % Sodium Level 143 136-145 mmol/L Potassium Level 4.1 3.5-5.1 mmol/L Chloride Level 109 101-111 mmol/L Carbon Dioxide Level 26 21-32 mmol/L Blood Urea Nitrogen 5 L 7-18 mg/dL Creatinine 0.7 0.5-1.0 mg/dL Glomerular Filtration Rate Calc 116 >90 mL/min Random Glucose 102 70-105 mg/dL Total Calcium 8.6 8.5-10.1 mg/dL Total Bilirubin 0.3 0.2-1.0 mg/dL Aspartate Amino Transf (AST/SGOT) 20 10-37 U/L Alanine Aminotransferase (ALT/SGPT) 40 12-78 U/L Alkaline Phosphatase 92 50-136 U/L Total Protein 7.0 6.0-8.3 g/dL Albumin 3.1 L 3.5-5.0 g/dL Prothrombin Time 10.5 9.6-11.6 SEC Prothromb Time International Ratio 0.99 0.85-1.15 Anti-Nuclear Antibody Screen Negative Negative Anti-Nuclear Antibody Interpret MARCELL-1 Antibody SS-A/Ro Antibody SS-B/La Antibody Sm (Ornelas) IgG Antibody, Quant VARIETY PERFORMER IgG Antibody, Quantitative Scl-70 (Scleroderma) Antibody Anti-Double Strand DNA Antibody Anti-Centromere IgG Antibody ASSESSMENT: Urinary tract infection. Pneumonia. Leukocytosis. Nephrolithiasis. PLAN: Continue ceftriaxone. Continue azithromycin. Continue oxygen support as needed. Continue pain management. We will follow up on the final cultures results. This case was reviewed and discussed with my supervising physician and the above assessment and plan was formulated and agreed upon. ATTESTATION BY PHYSICIAN I have seen and examined the patient. I reviewed the documentation, medical decision making, and treatment plan as noted by the mid-level provider above. I agree with the findings and plan of care. DEBRA GALINDO MD, M[facility]TA [facility] MEDICAL TECHNICIAN November 03, 2024 18:08
[2024-11-04 00:27] VITALS: BP 134/83; PULSE 67; RESP 20; TEMP 98.4
[2024-11-04 04:00] VITALS: BP 141/88; PULSE 69; RESP 20; TEMP 97.9
[2024-11-04 07:06] LABS: BASOPHILS # (AUTO) 0.04 K/uL (0.00-0.20); BASOPHILS % (AUTO) 0.4 % (0.0-5.0); EOSINOPHILS # (AUTO) 0.34 K/uL (0.00-0.70); HEMATOCRIT 38.8 % (36-48); IMMATURE GRANULOCYTE ABSOLUTE 0.04 K/uL (0-1); LYMPHOCYTES # (AUTO) 3.2 K/uL (1.0-4.8); LYMPHOCYTES % (AUTO) 28.6 % (21.0-51.0); MEAN CORPUSCULAR HEMOGLOBIN 28.3 pg (27.0-33.0); MEAN CORPUSCULAR HGB CONC 33.5 g/dL (32.0-36.0); MEAN CORPUSCULAR VOLUME 84.5 fL (79-99); MONOCYTES # (AUTO) 0.6 K/uL (0.1-1.0); MONOCYTES % (AUTO) 5.1 % (3.0-13.0); NEUTROPHILS % (AUTO) 62.5 % (40.0-77.0); PLATELET COUNT (AUTO) 308 K/uL (130-400); RED BLOOD CELL COUNT(AUTO) 4.59 MIL/uL (4.00-5.50); RED CELL DISTRIBUTION WIDTH 13.1 % (11.0-15.5); WHITE BLOOD COUNT (AUTO) 11.2 K/uL (4.8-10.8)
[2024-11-04 07:55] LABS: ALBUMIN 3.1 g/dL (3.5-5.0); BILIRUBIN,TOTAL 0.3 mg/dL (0.2-1.0); CREATININE 0.8 mg/dL (0.5-1.0); MAGNESIUM 1.8 mg/dL (1.80-2.40); POTASSIUM 4.2 mmol/L (3.5-5.1); TOTAL PROTEIN, SERUM 6.4 g/dL (6.0-8.3)
[2024-11-04 08:00] VITALS: BP 147/93; PULSE 63; RESP 17; TEMP 97.6
--- NOTE | 2024-11-04 08:43 | NUR ---
AWARE PF MAGNESIUM LEVEL. AND NO PROTOCOL Addendum: 11/04/24 at 0844 by NADER CARDONA LVN LVN Amended: Links added.
[2024-11-04 09:25] VITALS: O2SAT 99
--- NOTE | 2024-11-04 10:57 | PN ---
[facility] PROGRESS NOTE Date Patient Seen: Nov 04, 2024 Time of Visit: 10:56 Supervising Physician: [Dr. Morse] Primary Care Physician: [ ] Outpatient Specialists: [ ] Inpatient Consults: [BIS] PROBLEM LIST: Right lower lobe atelectasis, POA Small bilateral pleural effusion, POA Bilateral renal calculi, 7X7mm on Left and 5X5mm on Right per abd U/S 11/01 Gallbladder polyp 4X3mm Elevated D-dimer Leukocytosis, POA Hyperglycemia, POA Former smoker Plan: Urology consult pending Ordered COVID, and strep swabs Continue incentive spirometer Pending mycoplasma and Legionella REANNA screen negative Venous Doppler negative Further management per hospital course INTERVAL HISTORY: [Patient is evaluated at bedside. She feels less pain since admission. Her abdominal ultrasound revealed bilateral renal calculi, larger than previously noted with the largest measuring 7 x 7 mm on the left side. Also noted to have 5 x 5 mm renal calculi on right side. Patient admits a history of kidney stones. Urology has been consulted for evaluation. She continues on IV antibiotics. Has IS at bedside and is using as directed. Urine culture remains negative.] 11/03 patient is evaluated at bedside. She continues with right flank pain, notices with deep inspiration. She does use IS at bedside. No fever reported overnight. She continues on room air saturating well. She denies any nausea or vomiting. Urology has been consulted for evaluation of renal stone, pending evaluation. She continues on antibiotics. WBCs are downtrending, CMP is unremarkable. REANNA screen is negative. Urine cultures negative, procalcitonin normal. 11/04 patient was evaluated at bedside. Her vitals are within normal limits, continues on room air no acute respiratory distress. Continues with on and off right flank pain but is improved. She was evaluated by Urology and states we will follow up outpatient for possible lithotripsy. She continues on IS with no recurrence of hemoptysis. Patient was otherwise feeling well with no new health concerns. She is pending discharge per primary today. Advised to continue on Levaquin outpatient and F/U with PCP. REVIEW OF SYSTEMS: 12 point ROS reviewed with patient. Pertinent positives mentioned above. Otherwise negative. PHYSICAL EXAM: GENERAL: alert, weak, awake oriented x 3 HEENT: EOMI, Sclera non icteric, moist mucosa NECK: Supple, no JVD, trachea midline LUNGS: Clear breath sounds bilaterally. No wheezes HEART: Regular rate and rhythm. Normal S1 and S2, without murmurs ABD: Abdomen soft, nontender. Bowel sounds present EXT: No clubbing cyanosis or edema NEURO: Alert and oriented to person, follows commands Vital Signs (last 8hr) Date Time Temp Pulse Resp B/P (MAP) Pulse Ox O2 Delivery O2 Flow Rate FiO2 11/04/24 08:00 97.5 63 17 147/93 99 Room Air 11/04/24 04:00 97.9 69 20 141/88 98 Room Air LABS: Hematology Labs: Test 11/04/24 06:54 Range/Units White Blood Count 11.2 H 4.8-10.8 K/uL Red Blood Count 4.59 4.00-5.50 MIL/uL Hemoglobin 13.0 12.0-16.0 g/dL Hematocrit 38.8 36-48 % Mean Corpuscular Volume 84.5 79-99 fL Mean Corpuscular Hemoglobin 28.3 27.0-33.0 pg Mean Corpuscular Hemoglobin Concent 33.5 32.0-36.0 g/dL Red Cell Distribution Width 13.1 11.0-15.5 % Platelet Count 308 130-400 K/uL Mean Platelet Volume 9.1 7.5-10.5 fL Immature Granulocyte % (Auto) 0.4 0-1 % Neutrophils (%) (Auto) 62.5 40.0-77.0 % Lymphocytes (%) (Auto) 28.6 21.0-51.0 % Monocytes (%) (Auto) 5.1 3.0-13.0 % Eosinophils (%) (Auto) 3.0 0.0-8.0 % Basophils (%) (Auto) 0.4 0.0-5.0 % Neutrophils # (Auto) 7.0 1.8-7.7 K/uL Lymphocytes # (Auto) 3.2 1.0-4.8 K/uL Monocytes # (Auto) 0.6 0.1-1.0 K/uL Eosinophils # (Auto) 0.34 0.00-0.70 K/uL Basophils # (Auto) 0.04 0.00-0.20 K/uL Absolute Immature Granulocyte (auto 0.04 0-1 K/uL Nucleated Red Blood Cells 0.0 0.0-0.19 % Chemistry Labs: Test 11/04/24 06:54 Range/Units Sodium Level 144 136-145 mmol/L Potassium Level 4.2 3.5-5.1 mmol/L Chloride Level 108 101-111 mmol/L Carbon Dioxide Level 27 21-32 mmol/L Blood Urea Nitrogen 6 L 7-18 mg/dL Creatinine 0.8 0.5-1.0 mg/dL Glomerular Filtration Rate Calc 99 >90 mL/min Random Glucose 84 70-105 mg/dL Total Calcium 8.8 8.5-10.1 mg/dL Magnesium Level 1.80 1.80-2.40 mg/dL Total Bilirubin 0.3 0.2-1.0 mg/dL Aspartate Amino Transf (AST/SGOT) 22 10-37 U/L Alanine Aminotransferase (ALT/SGPT) 48 12-78 U/L Alkaline Phosphatase 91 50-136 U/L Total Protein 6.4 6.0-8.3 g/dL Albumin 3.1 L 3.5-5.0 g/dL DIAGNOSTICS / RADIOLOGY RESULTS: [ ] PLAN NEURO: Minimize central acting medications as possible. Maintain fall precautions, adequate lighting during the day PULMONARY: Supplemental 02 as needed. Maintain aspiration precautions at all times CARDIOVASCULAR: Follow hemodynamics. Vital signs per facility protocol GI & NUTRITION: Continue with nutritional support. Continue stool softeners and laxatives as needed. KIDNEYS & ELECTROLYTES: Strict monitoring of intake, output and overall fluid balance. Avoid nephrotoxic medications to the extent possible. Medications to be dosed according to renal function. Monitor electrolytes and replace as needed ENDOCRINE: Maintain blood glucose between 100-180 at all times. Hypoglycemia protocol in place INFECTIOUS DISEASE: Trend temperature, WBC and procalcitonin level Follow cultures, deescalate antibiotics as soon as possible. Panculture if new onset fever ONCOLOGY/HEMATOLOGY/COAGULATION: Monitor for s/s of bleeding Monitor hemoglobin, coagulation studies as needed SKIN: Pressure ulcer prevention per facility protocol Specialty mattress ORTHO/REHAB: Continue PT/OT Prophylaxis: Continue GI and DVT prophylaxis Code Status: Full Resuscitation Disposition: TBD Other: JOSEPH ORELLANA Nov 04, 2024 10:56
--- NOTE | 2024-11-04 10:57 | NUR ---
BALBINA CYBER OPERATOR NEW ORDER TO DC IV AZYTROMYCIN, ADD AZYTHROMYCIN 500MG PO DAILY.
[2024-11-04 12:00] VITALS: BP 129/85; PULSE 87; RESP 19; TEMP 98.3
[2024-11-04] MEDS: AZITHROMYCIN 250 MG TABLET PO SCH (12:07)
--- NOTE | 2024-11-04 12:33 | PN ---
INFECTIOUS DISEASE PROGRESS NOTE Date of Service: Nov 04, 2024 SUBJECTIVE: This is a 34-year-old female patient who was seen and examined at bedside in room 328. Patient is awake, alert and oriented x 3. Patient voiced burning on her vein while the azithromycin IV is infusing and refusing today's dose of IV azithromycin. We will change azithromycin to p.o. No growth reported on the urine culture. Patient reported improvement on the coughing episodes. The WBC is 11.2 but no fever, temperature is 97.5. From Infectious Disease standpoint patient can be discharged to home on levofloxacin 500 mg p.o. Q 24 hours for 5 days when ready to discharge. PHYSICAL EXAM EYES: Anicteric. Pupils equal and reactive. HENT: No oral thrush seen, moist Oral mucosa NECK: Supple, no JVD or thyromegaly. LUNGS: Good air entry. No rales, no rhonchi. Dry cough. CARDIOVASCULAR: S1, S2 regular. No murmur heard. ABDOMEN: Soft, non tender, bowel sounds present, no organomegaly CENTRAL NERVOUS SYSTEM: Awake, alert, oriented x 3. SKIN: No rashes, no swelling. LYMPHATICS: No peripheral lymphadenopathy MUSCULOSKELETAL: No joint swelling, erythema or tenderness. EXTREMITIES: No cyanosis or clubbing BACK: No deformity, no pressure ulcer. GENITOURINARY: No dysuria or hematuria. Vital Sign (Last 12 Hours) 11/04/24 11/04/24 04:00 08:00 Temp 97.9 97.5 Pulse 69 63 Resp 20 17 B/P (MAP) 141/88 147/93 Pulse Ox 98 99 O2 Delivery Room Air Room Air Intake & Output (last 24hrs) 11/03/24 11/03/24 11/04/24 15:00 23:00 07:00 Intake Total 1520.0 ml 1200.0 ml Balance 1520.0 ml 1200.0 ml LABS: Laboratory: Test 11/04/24 06:54 Range/Units White Blood Count 11.2 H 4.8-10.8 K/uL Red Blood Count 4.59 4.00-5.50 MIL/uL Hemoglobin 13.0 12.0-16.0 g/dL Hematocrit 38.8 36-48 % Mean Corpuscular Volume 84.5 79-99 fL Mean Corpuscular Hemoglobin 28.3 27.0-33.0 pg Mean Corpuscular Hemoglobin Concent 33.5 32.0-36.0 g/dL Red Cell Distribution Width 13.1 11.0-15.5 % Platelet Count 308 130-400 K/uL Mean Platelet Volume 9.1 7.5-10.5 fL Immature Granulocyte % (Auto) 0.4 0-1 % Neutrophils (%) (Auto) 62.5 40.0-77.0 % Lymphocytes (%) (Auto) 28.6 21.0-51.0 % Monocytes (%) (Auto) 5.1 3.0-13.0 % Eosinophils (%) (Auto) 3.0 0.0-8.0 % Basophils (%) (Auto) 0.4 0.0-5.0 % Neutrophils # (Auto) 7.0 1.8-7.7 K/uL Lymphocytes # (Auto) 3.2 1.0-4.8 K/uL Monocytes # (Auto) 0.6 0.1-1.0 K/uL Eosinophils # (Auto) 0.34 0.00-0.70 K/uL Basophils # (Auto) 0.04 0.00-0.20 K/uL Absolute Immature Granulocyte (auto 0.04 0-1 K/uL Nucleated Red Blood Cells 0.0 0.0-0.19 % Sodium Level 144 136-145 mmol/L Potassium Level 4.2 3.5-5.1 mmol/L Chloride Level 108 101-111 mmol/L Carbon Dioxide Level 27 21-32 mmol/L Blood Urea Nitrogen 6 L 7-18 mg/dL Creatinine 0.8 0.5-1.0 mg/dL Glomerular Filtration Rate Calc 99 >90 mL/min Random Glucose 84 70-105 mg/dL Total Calcium 8.8 8.5-10.1 mg/dL Magnesium Level 1.80 1.80-2.40 mg/dL Total Bilirubin 0.3 0.2-1.0 mg/dL Aspartate Amino Transf (AST/SGOT) 22 10-37 U/L Alanine Aminotransferase (ALT/SGPT) 48 12-78 U/L Alkaline Phosphatase 91 50-136 U/L Total Protein 6.4 6.0-8.3 g/dL Albumin 3.1 L 3.5-5.0 g/dL ASSESSMENT: Urinary tract infection. Pneumonia. Leukocytosis, resolving. Nephrolithiasis. PLAN: Change azithromycin to p.o.. Continue ceftriaxone. Continue oxygen support as needed. From Infectious Disease standpoint patient can be discharged to home on levofloxacin 500 mg p.o. Q 24 hours for 5 days when ready to discharge. This case was reviewed and discussed with my supervising physician and the above assessment and plan was formulated and agreed upon. ATTESTATION BY PHYSICIAN I have seen and examined the patient. I reviewed the documentation, medical decision making, and treatment plan as noted by the mid-level provider above. I agree with the findings and plan of care. DEBRA GALINDO MD, MIRTA L [facility] Nov 04, 2024 12:33
[2024-11-04] MEDS ORDERED: LEVO-70 PO (12:38)
--- NOTE | 2024-11-04 12:43 | DS ---
Discharge Summary Hospital Course Summary: DATE OF ADMISSION:[11/01/2024] DATE OF DISCHARGE:[11/04/2024] DISPOSITION:[Home] CONDITION:[Medically stable] CONSULTANTS:[Political Advisor, ID, urologist] FOLLOW UP APPOINTMENTS:[PCP 2 to 3 days. Urologist one month. Political Advisor 1 to 2 weeks] PROCEDURES:[None] IMAGING: report attached to summary MICROBIOLOGY: report attached to summary ACTIVITY:[Independent] HOME MEDICATIONS: see [facility] NEW MEDICATIONS:[Levofloxacin] EMERGENCY INSTRUCTIONS: The patient was instructed to present to the nearest Emergency departmentr or call 911 once their symptoms will return or worsen Environmental Compliance Engineer(s): Patient is 34 years old female who came to emergency department for evaluation of pneumonia. Patient stated that previously she was admitted and was discharged on Augmentin but today in the morning she started to cough with a blood. She was also complaining of shortness of breaths and pain when inhaling to the right lower back. During hospitalization CTA of the chest was negative for the PE. Venous Doppler negative for DVT. Chest x-ray showed bilateral pulmonary infiltrate with a pleural effusion right more than left. Ultrasound of the abdomen was also performed and shows small gallbladder polyps. No gallstones or ductal dilation is seen. No hydronephrosis. 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 Stones are measuring left 7 x 7 mm and on the right measuring 5 x 5 mm. ID was consulted, engineering scientist and urologist for kidney stones. As per ID final urine culture is negative patient is cleared to be discharged home on levofloxacin 500 mg daily x7 days. As per urologist there is no concern at this moment of the stones that were found on ultrasound abdomen and he recommends to follow up outpatient within one month. 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 Patient was also advised to follow up with PCP in 2 to 3 days. Procedure(s): REVIEW OF SYSTEMS CONSTITUTIONAL: Denies fevers, chills, or night sweats. No unintentional weight loss reported. NEUROLOGICAL: Denies headache, amaurosis fugax, motor weakness, sensory deficit, vertigo/spinning sensation, gait abnormalities, or tremors. ENT: No hearing loss, otalgia, otorrhea, rhinitis, rhinorrhea, hoarseness, or sore throat. CARDIOVASCULAR: Denies any exertional angina, dyspnea on exertion, orthopnea, paroxysmal nocturnal dyspnea, palpitations, life-threatening arrhythmias, claudication. PULMONARY: Denies any shortness of breath, phlegm/sputum, pleuritic chest pain. denies any cough SLEEP: Denies morning headaches, daytime somnolence or napping. Denies difficulty falling asleep, staying asleep, waking from sleep. Denies knowledge of snoring. GASTROINTESTINAL: Denies any type of dysphagia to either liquids or solids. Denies nausea, vomiting, pyrosis, early satiety, abdominal pain, diarrhea, constipation, or changes in stool consistency or caliber. Denies coffee-ground emesis, hematemesis, hematochezia, or melanotic stools. GENITOURINARY: Denies frequency, urgency, nocturia, hematuria or incontinence (Storage/Irritative symptoms.) Low urinary stream, straining to void, urinary intermittency or hesitancy, splitting of the voiding stream, terminal dribbling. ENDOCRINOLOGIC: Denies polyuria, polydipsia, polyphagia or heat/cold intolerances. HEMATOLOGIC: Denies thrombophilia/previous clots, or coagulopathy/bleeding d isorders. ONCOLOGIC: Denies personal history of malignancy. DERMATOLOGIC: Denies rashes or pruritus. PSYCHIATRIC: Denies any suicidal or homicidal ideation. Denies hallucinations. PHYSICAL EXAM GENERAL APPEARANCE: The patient is awake, alert, and oriented, in no acute cardiopulmonary distress. NEUROLOGICAL: Cranial nerves II-XII grossly intact. Motor is 5/5 in bilateral upper and lower extremities proximal to distal. No sensory deficits. HEENT: Face is symmetric. Pupils are equal and reactive. Extraocular movements are intact. NECK: Supple. No JVD. No thyromegaly. No submental, submandibular, pre- /postauricular, occipital or supraclavicular lymphadenopathy. CHEST: Normal chest expansion. No Telemetry. LUNGS: Absence of any rales, rhonchi or any wheezing. CARDIOVASCULAR: Regular. S1 and S2 normal. No appreciable rubs, murmurs or gallops. ABDOMEN: Soft, nontender, and nondistended. There is no rebound, voluntary guarding, or rigidity. : Deferred. No Martins. EXTREMITIES: Non-edematous and not cyanotic. No clubbing. Good capillary refill. SKIN: No skin breakdown. 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 bilateral renal pelvic stones per ultrasound abdomen POA Electrolyte imbalance hypokalemia 3.4 Moderate malnutrition POA Ruled out PE, POA Ruled out DVT, POA Leukocytosis, POA Hyperglycemia, POA Former smoker ] \ Home Medications: Reported Medications Hydroxyzine HCl (Hydroxyzine HCl) 25 Mg Tablet, 25 MG PO HS, TAB 11/02/24 Buspirone HCl (Buspirone HCl) 5 Mg Tablet, 1 TAB PO BID for 30 Days, #60 TAB 0 Refills 11/02/24 Discontinued Scripts Amoxicillin/Potassium Clav (Amox Tr-K Clv 875-125 mg Tab) 875 Mg-125 Mg Tablet, 1 TAB PO BID for 10 Days, #20 TAB 0 Refills Prov:KANDY HARTMANN DO 10/30/24 Ketorolac Tromethamine (Ketorolac Tromethamine) 10 Mg Tablet, 10 MG PO QIDP PRN for PAIN for 5 Days, #20 TAB Prov:PK MILLER NP 12/13/23 Tamsulosin HCl (Flomax) 0.4 Mg Cap.er.24h, 0.4 MG PO DAILY for 30 Days, #30 CAPSULE. Prov:PK MILLER NP 12/13/23 Prednisone (Prednisone) 20 Mg Tablet, 1 TAB PO AD for 6 Days, #14 TAB 0 Refills TAKE 1 TAB BY MOUTH THREE TIMES PER DAY X3 DAYS, THEN TAKE 1 TAB BY MOUTH TWICE A DAY X2 DAYS, THEN TAKE 1 TAB BY MOUTH ONCE A DAY X1 DAY. Prov:KEVIN ASTORGA MD 11/09/23 Azithromycin (Azithromycin) 250 Mg Tablet, 250 MG PO DAILY for 5 Days, #5 TAB Prov:KEVIN ASTORGA MD 11/09/23 Ibuprofen (Motrin/Advil) 800 Mg Tab, 800 MG PO TID, #30 TAB Prov:RASTA EDMONDSON MD 06/25/23 Tamsulosin HCl (Flomax) 0.4 Mg Cap.er.24h, 0.4 MG PO DAILY, #[address] CAPSU[address].DR Modi:RASTA EDMONDSON MD 06/25/23 Cephalexin Monohydrate (Keflex) 500 Mg Cap, 500 MG PO QID for 10 Days, #40 CAP 2 Refills Prov:MANN JOSUE Sr., MD 02/11/23 Metoclopramide HCl (Reglan) 10 Mg Tablet, 10 MG PO QID, #120 TAB 2 Refills Prov:MANN JOSUE Sr., MD 02/11/23 Pantoprazole Sodium (Protonix) 40 Mg Tablet., 40 MG PO DAILY, #30 TAB 2 Refills Prov:MANN JOSUE Sr., MD 02/11/23 Sulfamethoxazole/Trimethoprim (Bactrim Ds Tablet) 1 Each Tablet, 1 TAB PO BID for 7 Days, #14 TAB 0 Refills Prov:RASTA EDMONDSON MD 03/02/22 Time spent arranging discharge: 31-60 minutes ATTESTATION BY PHYSICIAN I have seen and examined the patient. I reviewed the documentation, medical decision making, and treatment plan as noted by the mid-level provider above. I agree with the findings and plan of care. FAMILIA Adame MD DIABETES EDUCATION COORDINATOR Nov 04, 2024 12:43
--- NOTE | 2024-11-04 13:47 | NUR ---
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
[2024-11-06 23:09] LABS: MYCOPLASMA AB IGM <770 U/mL (0-769)
== END 2024-11-04 14:30 | disposition home or self-care (01) | DRG 139 ==
LOC: EDH 06:05 → EDHIP 07:36 → 3DH 21:00
PROVIDERS: ADMIT Internal Medicine; ATTEND Internal Medicine
DX: J18.9 Pneumonia, unspecified organism (principal); E44.0 Moderate protein-calorie malnutrition; J90 Pleural effusion, not elsewhere classified; N20.0 Calculus of kidney; R73.9 Hyperglycemia, unspecified; N30.00 Acute cystitis without hematuria; K82.4 Cholesterolosis of gallbladder; J98.11 Atelectasis; E87.6 Hypokalemia; F41.9 Anxiety disorder, unspecified; Z20.822 Contact with and (suspected) exposure to COVID-19; Z86.32 Personal history of gestational diabetes; Z87.442 Personal history of urinary calculi; Z87.891 Personal history of nicotine dependence; Z68.39 Body mass index [BMI] 39.0-39.9, adult
CPT/HCPCS: 36415; 71045; 71270; 74176; 76700; 80048; 80053; 80076; 81001; 81025; 83735; 83880; 84145; 84484; 85025; 85378; 85610; 85651; 86038; 86140; 86215; 86235; 86738; 87086; 87635; 87804; 87880; 93005; 93970; 96360; 96365; 96372; 99285; G0378; J0456; J0696; J1885; J2270; J7030; Q9967

== ENCOUNTER 2024-11-15 01:19 | Emergency (ER) | payer MEDICAID ==
[~2024-11-15] VITALS: Ht 154.9 cm; Wt 93.4 kg
[~2024-11-15 01:19] MED LIST changes: -AMOX1TAB16 PO; -AZIT250T9 PO; +BUSP5TAB3 PO; -CEPH500B PO; +HYDR-3421 PO; -IBUP-1493 PO; -KETO10TA2 PO; +LEVO-70 PO; -METO-296 PO; -PANT40TA PO; -PRED20TA3 PO; -SULF1TAB42 PO; -TAMS-55 PO
--- NOTE | 2024-11-15 02:03 | ERN ---
ED Note History of Present Illness Stated Complaint: C/O WEAKNESS W/ LEFT BREAST TIGHTNESS Chief Complaint: Weakness Time Seen by MD: 01:29 Dictation: This is a 34-year-old female who is 2 months and nursing the baby was recently admitted for pneumonia and discharged. Apparently upon discharge she has taken her antibiotics but she never really felt better. She went to [facility] and they did extensive workup and told her that all the labs were fine and she also reported breast tightness and they also checked her breast and she was discharged to home. After she went home she remained anxious and still uncomfortable so she drove herself to [facility] for evaluation. She appeared quite anxious during the conversation and was tearful. She stated that she has had this 3rd child after 11 years. Allergies: Coded Allergies: No Known Allergies (Unverified Allergy, Unknown, 02/07/19) Home Meds Active Scripts Alprazolam (Xanax) 0.25 Mg Tablet, 1 TAB PO [id number] PRN for anxiety for 3 Days, #6 TAB 0 Refills Prov:KEVIN ASTORGA MD 11/15/24 Levofloxacin (Levofloxacin) 500 Mg Tablet, 1 TAB PO DAILY for 7 Days, #7 TAB 0 Refills Prov:FAMILIA RODRIGEZ APRN 11/04/24 Reported Medications Hydroxyzine HCl (Hydroxyzine HCl) 25 Mg Tablet, 25 MG PO HS, TAB 11/02/24 Buspirone HCl (Buspirone HCl) 5 Mg Tablet, 1 TAB PO BID for 30 Days, #60 TAB 0 Refills 11/02/24 Past Medical History Past Medical History: Anxiety, Hypertension Additional Past Medical Hx: GESTATIONAL DIABETES Surgical History: None Family History: Negative Social History: Negative History: Not Applicable : 3 Para: 3 RN Note Reviewed/Agreed w/PFSH: Yes Review of System Dictation Constitutional: Negative for fever,chills, and weight loss Eyes: Negative for injury, pain,redness, and discharge ENT: Negative for injury,pain or swelling Cardiovascular: Negative for chest pain, palpitations, and edema left breast tightness Respiratory: Negative for shortness of breath, cough, and wheezing, Abdomen/GI: Negative for abdominal pain, nausea, vomiting, diarrhea, and constipation Back: Negative for injury and pain : Negative for injury, bleeding and discharge MS/Extremity: Negative for injury and deformity Skin: Negative for rash, and discoloration Neuro: Negative for headache, weakness, numbness, tingling, and seizure Psych: Negative for suicide ideation, homicidal ideation, and hallucinations Initial Vital Sign VS Vital Signs Date Time Temp Pulse Resp B/P (MAP) Pulse Ox O2 Delivery O2 Flow Rate FiO2 11/15/24 01:23 97.7 70 20 131/89 99 Room Air Physical Exam Dictation General: awake, alert, NAD morbidly obese Head/Face: Normocephalic, atraumatic Eyes: PERRL, EOMI, vision at baseline ENT: oral cavity clear, TMs clear, no signs of infection Neck: Trachea midline, supple, no nuchal rigidity Cardiovascular: RRR, normal S1/S2, No MRGs, no JVD no breast swelling or abscess no warmth no erythema Respiratory: CTAB, no respiratory distress, No rales or wheezes Abdomen: Soft, non-tender, non-distended, normal bowel sounds, no guarding or rebound. Skin: Warm, dry, normal turgor, no rash MS/Extremity: Pulses equal, no cyanosis, neurovascular intact, FROM Neuro: COAx4, GCS 15, strength 5/5, CN 2-12 intact, normal cerebellar exam, normal gait, Psych: Normal behavior, mood, and affect normal Extremities-trace edema without any palpable cords, Homans sign is negative Results (Laboratory/Radiology) Laboratory/Radiology Laboratory Tests Test 11/15/24 01:49 White Blood Count 14.0 K/uL (4.8-10.8) H Red Blood Count 4.87 MIL/uL (4.00-5.50) Hemoglobin 13.9 g/dL (12.0-16.0) Hematocrit 41.1 % (36-48) Mean Corpuscular Volume 84.4 fL (79-99) Mean Corpuscular Hemoglobin 28.5 pg (27.0-33.0) Mean Corpuscular Hemoglobin Concent 33.8 g/dL (32.0-36.0) Red Cell Distribution Width 13.2 % (11.0-15.5) Platelet Count 318 K/uL (130-400) Mean Platelet Volume 9.6 fL (7.5-10.5) Immature Granulocyte % (Auto) 0.3 % (0-1) Neutrophils (%) (Auto) 67.3 % (40.0-77.0) Lymphocytes (%) (Auto) 25.5 % (21.0-51.0) Monocytes (%) (Auto) 4.8 % (3.0-13.0) Eosinophils (%) (Auto) 1.7 % (0.0-8.0) Basophils (%) (Auto) 0.4 % (0.0-5.0) Neutrophils # (Auto) 9.4 K/uL (1.8-7.7) H Lymphocytes # (Auto) 3.6 K/uL (1.0-4.8) Monocytes # (Auto) 0.7 K/uL (0.1-1.0) Eosinophils # (Auto) 0.24 K/uL (0.00-0.70) Basophils # (Auto) 0.05 K/uL (0.00-0.20) Absolute Immature Granulocyte (auto 0.04 K/uL (0-1) Nucleated Red Blood Cells 0.0 % (0.0-0.19) Urine Color LIGHT-YELLOW (YELLOW) Urine Appearance CLEAR (CLEAR) Urine pH 6.5 (5.0-8.0) Urine Specific [place] 1.014 (1.001-1.031) Urine Protein NEGATIVE mg/dL (NEGATIVE) Urine Glucose (UA) NEGATIVE mg/dL (NEGATIVE) Urine Ketones NEGATIVE mg/dL (NEGATIVE) Urine Occult Blood NEGATIVE (NEGATIVE) Urine Nitrate NEGATIVE (NEGATIVE) Urine Bilirubin NEGATIVE mg/dL (NEGATIVE) Urine Urobilinogen 0.2 mg/dL (0.2-1.0) Urine Leukocyte Esterase NEGATIVE Gray/uL Sodium Level 141 mmol/L (136-145) Potassium Level 3.5 mmol/L (3.5-5.1) Chloride Level 103 mmol/L (101-111) Carbon Dioxide Level 31 mmol/L (21-32) Blood Urea Nitrogen 10 mg/dL (7-18) Creatinine 0.9 mg/dL (0.5-1.0) Glomerular Filtration Rate Calc 86 mL/min (>90) Random Glucose 109 mg/dL (70-105) H Total Calcium 10.1 mg/dL (8.5-10.1) Labs Reviewed?: Yes ED Course ED Course Orders Procedure Category Date Status Time Cbc With Differential LAB 11/15/24 Complete : Basic Metabolic Panel LAB 11/15/24 Complete : Urinalysis Profile LAB 11/15/24 Complete Tsh High Sensitivity LAB 11/15/24 In Process 02:01 Vital Signs Date Time Temp Pulse Resp B/P (MAP) Pulse Ox O2 Delivery O2 Flow Rate FiO2 11/15/24 01:23 97.7 70 20 131/89 99 Room Air We will perform diagnostic labs, and administer medications according to the patient's complaint. Once the results are available, will review and personally interpreted the labs to rule out any acute life-threatening emergency the trach require immediate intervention and treatment. I will then re-evaluate the patient after treatment and diagnostic exams have return to determine whether the patient requires any further testing, can safely be discharged home or need further admission to hospital for additional treatment and evaluation. Labs reviewed CBC BNP 7 are within normal limits urinalysis is unremarkable I had a long discussion with the patient about her anxiety as well as mood changes she denied any hopelessness or severe depression or suicidal ideations. I explained to her that her pneumonia clinically she has completed antibiotics and she does not have any residual leukocytosis. There is no anemia. And multiple places have worked her up and I reassured her to discuss with her PCP all the options of likely an SSRI. She has not appointment tomorrow Medical Decision Making MDM MDM: Differential diagnosis: Anemia, dehydration, anxiety, depression, residual pneumonia or UTI Rationale: Tests considered and ordered secondary to shared decision making include: Previous outside records reviewed: Old ER visits. Risk of complication and/or morbidity or mortality of patient management: None Medications-Per medication reconciliation Need for hospitalization: Patient does not meet criteria for hospitalization. Need for emergency major/minor surgery: No There are no social concerns with this patient. Prescription drug management Prescriptions will include symptomatic care Patient's prior external medical records from other ER visits were reviewed by me as indicated. Prior testing and results from previous visits were reviewed. Prior tests were taken into account with medical decision making and resource utilization, independent historian/historians were used to obtain complete medical history. I independently interpreted the test that were performed, results were reviewed by me and considered findings on radiology if ordered. Medical management and examination interpretation discussions were had by me with other qualified healthcare professionals as indicated for the patient's care. Problem List Problem List: (1) Anxiety (2) mood disturbance DX & DISP Disposition: Discharge Departure Impression: Primary Impression: Anxiety Additional Impression: mood disturbance Condition: Stable Scripts Alprazolam (Xanax) 0.25 Mg Tablet 1 TAB PO [id number] PRN for anxiety for 3 Days, #6 TAB 0 Refills Prov: KEVIN ASTORGA MD 11/15/24 Additional Instructions: Patient and the caregiver have been informed of all the diagnostic tests and the imaging conducted during the today's visit to the emergency room and has verbalized understanding of the results I have personally reviewed and interpreted all diagnostic exams performed here in the ER today as well as the vital signs documented by the nursing staff. The patient is now being discharged to home and should follow up with the primary care physician or the specialist as directed by the ER staff. Follow-up with primary care provider in 1 to 2 days. Take medications as directed here in the emergency room. Okay to continue home medications unless otherwise discussed during your visit in the emergency room today. Return to your nearest emergency room if symptoms worsen or if there is no improvement. Call 911 if you need immediate assistance. Take Tylenol or Motrin [id number] as needed and if no contraindications are present. Increase oral hydration. A wound culture or urine culture was ordered here in the emergency room department please follow-up with primary care provider and advise them to get repeat ports from our facility. If you had any Lang wrap/splints that were applied here, please do not remove them until you see your primary care or specialty. I have recommended the patient to discuss with her PCP to consider SSRI for her anxiety and mood instead of treating purely only anxiety disorder. Referrals: WALTER MARTIN (PCP) KEVIN ASTORGA MD Nov 15, 2024 02:03
[2024-11-15 02:14] LABS: APPEARANCE,URINE CLEAR (CLEAR); BILIRUBIN,URINE NEGATIVE (NEGATIVE); COLOR,URINE LIGHT-YELLOW (YELLOW); GLUCOSE, URINE (UA) NEGATIVE (NEGATIVE); KETONES,URINE NEGATIVE (NEGATIVE); LEUKOCYTE ESTERASE ,URINE NEGATIVE Leu/uL (NEGATIVE); NITRATE,URINE NEGATIVE (NEGATIVE); OCCULT BLOOD,URINE NEGATIVE (NEGATIVE); PH,URINE 6.5 (5.0-8.0); PROTEIN,URINE NEGATIVE (NEGATIVE); UROBILINOGEN,URINE 0.2 mg/dL (0.2-1.0)
[2024-11-15 02:15] LABS: BASOPHILS # (AUTO) 0.05 K/uL (0.00-0.20); BASOPHILS % (AUTO) 0.4 % (0.0-5.0); EOSINOPHILS # (AUTO) 0.24 K/uL (0.00-0.70); EOSINOPHILS % (AUTO) 1.7 % (0.0-8.0); HEMATOCRIT 41.1 % (36-48); IMMATURE GRANULOCYTE ABSOLUTE 0.04 K/uL (0-1); LYMPHOCYTES # (AUTO) 3.6 K/uL (1.0-4.8); LYMPHOCYTES % (AUTO) 25.5 % (21.0-51.0); MEAN CORPUSCULAR HEMOGLOBIN 28.5 pg (27.0-33.0); MEAN CORPUSCULAR HGB CONC 33.8 g/dL (32.0-36.0); MEAN CORPUSCULAR VOLUME 84.4 fL (79-99); MONOCYTES # (AUTO) 0.7 K/uL (0.1-1.0); MONOCYTES % (AUTO) 4.8 % (3.0-13.0); NEUTROPHILS # (AUTO) 9.4 K/uL (1.8-7.7); NEUTROPHILS % (AUTO) 67.3 % (40.0-77.0); PLATELET COUNT (AUTO) 318 K/uL (130-400); RED BLOOD CELL COUNT(AUTO) 4.87 MIL/uL (4.00-5.50); RED CELL DISTRIBUTION WIDTH 13.2 % (11.0-15.5)
[2024-11-15 02:17] LABS: ADD UA MICROSCOPIC NO
[2024-11-15 02:29] LABS: CREATININE 0.9 mg/dL (0.5-1.0); POTASSIUM 3.5 mmol/L (3.5-5.1)
[2024-11-15 03:10] VITALS: BP 128/84; PULSE 68; RESP 16; TEMP 98; O2SAT 99
[2024-11-15] MEDS ORDERED: ALPR0.25 PO (03:14)
== END 2024-11-15 03:34 | disposition home or self-care (01) ==
LOC: EDH 01:19
DX: F41.9 Anxiety disorder, unspecified (principal); O90.6 Postpartum mood disturbance; I10 Essential (primary) hypertension; Z79.899 Other long term (current) drug therapy
CPT/HCPCS: 36415; 80048; 81003; 84443; 85025; 99283

== ENCOUNTER 2025-01-20 15:17 | Emergency (ER) | payer MEDICAID ==
[~2025-01-20] VITALS: Ht 154.9 cm; Wt 90.7 kg
[~2025-01-20 15:17] MED LIST changes: +ALPR0.25 PO
[2025-01-20 15:37] LABS: ADD UA MICROSCOPIC YES; APPEARANCE,URINE CLEAR (CLEAR); GLUCOSE, URINE (UA) NEGATIVE (NEGATIVE); LEUKOCYTE ESTERASE ,URINE 25 Leu/uL (NEGATIVE); NITRATE,URINE NEGATIVE (NEGATIVE); OCCULT BLOOD,URINE NEGATIVE (NEGATIVE)
[2025-01-20 15:40] LABS: SQUAMOUS EPITHELIAL CELL,UR MOD /HPF (0-2)
[2025-01-20 15:47] LABS: IMMATURE GRANULOCYTE ABSOLUTE 0.04 K/uL (0-1); NUCLEATED RED BLOOD CELLS 0.0 % (0.0-0.19); PLATELET COUNT (AUTO) 236 K/uL (130-400); RED BLOOD CELL COUNT(AUTO) 5.35 MIL/uL (4.00-5.50); RED CELL DISTRIBUTION WIDTH 13.2 % (11.0-15.5); WHITE BLOOD COUNT (AUTO) 14.2 K/uL (4.8-10.8)
--- NOTE | 2025-01-20 15:48 | ERN ---
ED Note History of Present Illness Stated Complaint: CHEST PAIN Chief Complaint: Chest Pain Time Seen by MD: 15:23 Dictation: 34-year-old female presents to ER complaints of left arm pain and left-sided chest pain x1 day. Denies shortness of breath, headache or numbness. DENIES TAKING ANY MEDICATION FOR PAIN. PATIENT ALSO STATES SHE HAS BEEN HAVING A LOT OF ACID REFLUX HAS A ENDOSCOPY SCHEDULED NEXT WEEK. ALSO HAS NOTED HER URINE TO BE CLOUDY. Allergies: Coded Allergies: No Known Allergies (Unverified Allergy, Unknown, 02/07/19) Home Meds Active Scripts Ondansetron (Ondansetron Odt) 4 Mg Tab.rapdis, 1 TAB PO Q6HPRN PRN for nausea/vomiting for 4 Days, #16 TAB 0 Refills Prov:PATSY HANNA NP 01/20/25 Nitrofurantoin Macrocrystal (Macrodantin) 100 Mg Cap, 1 CAP PO BID for 7 Days, #14 CAP 0 Refills Prov:PATSY HANNA NP 01/20/25 Alprazolam (Xanax) 0.25 Mg Tablet, 1 TAB PO [id number] PRN for anxiety for 3 Days, #6 TAB 0 Refills Prov:KEVIN ASTORGA MD 11/15/24 Levofloxacin (Levofloxacin) 500 Mg Tablet, 1 TAB PO DAILY for 7 Days, #7 TAB 0 Refills Prov:FAMILIA RODRIGEZ APRN 11/04/24 Reported Medications Hydroxyzine HCl (Hydroxyzine HCl) 25 Mg Tablet, 25 MG PO HS, TAB 11/02/24 Buspirone HCl (Buspirone HCl) 5 Mg Tablet, 1 TAB PO BID for 30 Days, #60 TAB 0 Refills 11/02/24 Past Medical History Past Medical History: Anxiety, Hypertension Additional Past Medical Hx: GESTATIONAL DIABETES Surgical History: None Family History: Negative Social History: Negative History: Not Applicable LMP: Dec 30, 2024 : 3 Para: 3 Review of System Dictation CONSTITUTIONAL: NEGATIVE FOR FEVER,CHILLS, AND WEIGHT LOSS EYES: NEGATIVE FOR INJURY, PAIN,REDNESS, AND DISCHARGE ENT: NEGATIVE FOR INJURY,PAIN OR SWELLING CARDIOVASCULAR: NEGATIVE FOR PALPITATIONS, AND EDEMA, POSITIVE FOR CHEST PAIN RESPIRATORY: NEGATIVE FOR SHORTNESS OF BREATH, COUGH, WHEEZING, AND PLEURITIC CHEST PAIN ABDOMEN/GI: NEGATIVE FOR DIARRHEA, AND CONSTIPATION, POSITIVE FOR ABDOMINAL PAIN, NAUSEA AND VOMITING, POSITIVE FOR ACID REFLEX BACK: NEGATIVE FOR INJURY AND PAIN : NEGATIVE FOR INJURY, BLEEDING AND DISCHARGE MS/EXTREMITY: NEGATIVE FOR INJURY AND DEFORMITY. POSITIVE FOR LEFT ARM PAIN SKIN: NEGATIVE FOR RASH, AND DISCOLORATION NEURO: NEGATIVE FOR HEADACHE, WEAKNESS, NUMBNESS, TINGLING, AND SEIZURE PSYCH: NEGATIVE FOR SUICIDE IDEATION, HOMICIDAL IDEATION, AND HALLUCINATIONS ALLERGY/IMMUNOLOGY: NEGATIVE FOR HIVES, RASH, AND ALLERGIES Initial Vital Sign VS Vital Signs Date Time Temp Pulse Resp B/P (MAP) Pulse Ox O2 Delivery O2 Flow Rate FiO2 01/20/25 15:19 97.9 89 20 123/91 99 Room Air 01/20/25 15:30 0 21 Physical Exam Dictation GENERAL: AWAKE, ALERT, NAD HEAD/FACE: NORMOCEPHALIC, ATRAUMATIC EYES: PERRL, EOMI, VISION AT BASELINE ENT: ORAL CAVITY CLEAR, TMS CLEAR, NO SIGNS OF INFECTION NECK: TRACHEA MIDLINE, SUPPLE, NO NUCHAL RIGIDITY CARDIOVASCULAR: RRR, NORMAL S1/S2, NO MRGS, NO JVD RESPIRATORY: CTAB, NO RESPIRATORY DISTRESS, NO RALES OR WHEEZES ABDOMEN: SOFT, NON-DISTENDED, NORMAL BOWEL SOUNDS, NO GUARDING OR REBOUND. POSITIVE FOR EPIGASTRIC PAIN UPON PALPATION SKIN: WARM, DRY, NORMAL TURGOR, NO RASH MS/EXTREMITY: PULSES EQUAL, NO CYANOSIS, NEUROVASCULAR INTACT, FROM NEURO: COAX4, GCS 15, STRENGTH 5/5, CN 2-12 INTACT, NORMAL CEREBELLAR EXAM, NORMAL GAIT, PSYCH: NORMAL BEHAVIOR, MOOD, AND AFFECT NORMAL Results (Laboratory/Radiology) Laboratory/Radiology Laboratory Tests Test 01/20/25 15:26 01/20/25 15:40 Urine Color LIGHT-YELLOW (YELLOW) Urine Appearance CLEAR (CLEAR) Urine pH 7.5 (5.0-8.0) Urine Specific [place] 1.018 (1.001-1.031) Urine Protein NEGATIVE mg/dL (NEGATIVE) Urine Glucose (UA) NEGATIVE mg/dL (NEGATIVE) Urine Ketones NEGATIVE mg/dL (NEGATIVE) Urine Occult Blood NEGATIVE (NEGATIVE) Urine Nitrate NEGATIVE (NEGATIVE) Urine Bilirubin NEGATIVE mg/dL (NEGATIVE) Urine Urobilinogen 0.2 mg/dL (0.2-1.0) Urine Leukocyte Esterase 25 Gray/uL (NEGATIVE) H Urine RBC 0-1 /HPF (0-1) Urine WBC 2-5 /HPF (0-1) H Urine Squamous Epithelial Cells MOD /HPF (0-2) Urine Amorphous Crystals (Auto) RARE /LPF (None Seen) Urine Bacteria RARE /HPF (None Seen) White Blood Count 14.2 K/uL (4.8-10.8) H Red Blood Count 5.35 MIL/uL (4.00-5.50) Hemoglobin 15.4 g/dL (12.0-16.0) Hematocrit 43.7 % (36-48) Mean Corpuscular Volume 81.7 fL (79-99) Mean Corpuscular Hemoglobin 28.8 pg (27.0-33.0) Mean Corpuscular Hemoglobin Concent 35.2 g/dL (32.0-36.0) Red Cell Distribution Width 13.2 % (11.0-15.5) Platelet Count 236 K/uL (130-400) Mean Platelet Volume 10.0 fL (7.5-10.5) Immature Granulocyte % (Auto) 0.3 % (0-1) Neutrophils (%) (Auto) 68.1 % (40.0-77.0) Lymphocytes (%) (Auto) 24.7 % (21.0-51.0) Monocytes (%) (Auto) 5.2 % (3.0-13.0) Eosinophils (%) (Auto) 1.4 % (0.0-8.0) Basophils (%) (Auto) 0.3 % (0.0-5.0) Neutrophils # (Auto) 9.7 K/uL (1.8-7.7) H Lymphocytes # (Auto) 3.5 K/uL (1.0-4.8) Monocytes # (Auto) 0.7 K/uL (0.1-1.0) Eosinophils # (Auto) 0.20 K/uL (0.00-0.70) Basophils # (Auto) 0.04 K/uL (0.00-0.20) Absolute Immature Granulocyte (auto 0.04 K/uL (0-1) Nucleated Red Blood Cells 0.0 % (0.0-0.19) Sodium Level 139 mmol/L (136-145) Potassium Level 3.7 mmol/L (3.5-5.1) Chloride Level 102 mmol/L (101-111) Carbon Dioxide Level 28 mmol/L (21-32) Blood Urea Nitrogen 18 mg/dL (7-18) Creatinine 1.0 mg/dL (0.5-1.0) Glomerular Filtration Rate Calc 76 mL/min (>90) Random Glucose 105 mg/dL (70-105) Total Calcium 10.0 mg/dL (8.5-10.1) Troponin I High Sensitivity < 4 ng/L (4-50) L ED Course ED Course Orders Procedure Category Date Status Time Chest 1vw RAD 01/20/25 Resulted 15:23 12 Lead Ekg Tracing- EKG 01/20/25 Logged Technical 15:23 Cbc With Differential LAB 01/20/25 Complete 15:23 Troponin I High LAB 01/20/25 Complete Sensitivity 15:23 Urinalysis Profile LAB 01/20/25 Complete 15:23 Basic Metabolic Panel LAB 01/20/25 Complete 15:23 12 Lead Ekg Tracing- EKG 01/20/25 Logged Technical 15:46 Ketorolac PHA 01/20/25 Complete Tromethamine 30mg/Ml 17:00 Pantoprazole 40mg Inj PHA 01/20/25 Complete (Protonix 40mg Inj 17:00 Ondansetron 4mg Inj PHA 01/20/25 Complete (Zofran 4mg Inj) 17:00 0.9%Nacl 1000ml (Ns PHA 01/20/25 Complete 1000ml) 17:00 Mag/Alum/Simeth 30ml PHA 01/20/25 Complete (Maalox Plus 30ml) 17:30 Current Medications Medications (Trade) Dose Ordered Sig/Delores Route PRN Reason Start Time Stop Time Status Last Admin Dose Admin Al Hydroxide/Mg Hydroxide (MAALox PLUS 30ML) 30 ml ONCE ONCE PO 01/20/25 17:30 01/20/25 17:31 DC 01/20/25 17:21 Ketorolac Tromethamine (toRADol) 30 mg ONCE ONCE IVP 01/20/25 17:00 01/20/25 17:01 DC 01/20/25 17:19 Ondansetron HCl (zoFRAN 4MG INJ) 4 mg ONCE ONCE IVP 01/20/25 17:00 01/20/25 17:01 DC 01/20/25 17:19 Pantoprazole Sodium (PROTonix 40MG INJ) 40 mg ONCE ONCE IVP 01/20/25 17:00 01/20/25 17:17 DC Sodium Chloride 1,000 ml @ 0 mls/hr ONCE ONCE IV 01/20/25 17:00 01/20/25 17:01 DC 01/20/25 17:20 Vital Signs Date Time Temp Pulse Resp B/P (MAP) Pulse Ox O2 Delivery O2 Flow Rate FiO2 01/20/25 15:30 75 18 114/71 95 Room Air* 0 21 01/20/25 15:19 97.9 89 20 123/91 99 Room Air Medical Decision Making MDM 34-year-old female presents to ER complaints of left arm pain and left-sided chest pain x1 day. Denies shortness of breath, headache or numbness. DENIES TAKING ANY MEDICATION FOR PAIN. PATIENT ALSO STATES SHE HAS BEEN HAVING A LOT OF ACID REFLUX HAS A ENDOSCOPY SCHEDULED NEXT WEEK. ALSO HAS NOTED HER URINE TO BE CLOUDY. WILL TREAT PATIENT WITH IV BOLUS, TORADOL TO HELP PAIN AND PROTONIX FOR THE ACID REFLUX SINCE SHE IS ACTIVELY VOMITING AND COMPLAINING OF ACID REFLEX A 14 POINTS ROS DONE, PERTINENT POSITIVE AND NEGATIVES DESCRIBED IN HPI; ALL OTHERS NEGATIVE. TIME WAS SPENT ON COUNSELING, REVIEWING MEDICAL RECORDS, REVIEWING THE ENTIRE VISIT DOCUMENTATION (INCLUDING ANY COMMENTS THAT MAY HAVE BEEN GIVEN BY THE PAT IENT I.E. THE REVIEW OF SYSTEMS) AND COORDINATION OF CARE DUE TO TIME PATIENT DECLINES IV PROTONIX ONCE A GI COCKTAIL STATES HAS HAD IT BEFORE. NURSE WILL MEDICATE PATIENT NOW. PATIENT'S SYMPTOMS IMPROVED. ADVISED TO CONTINUE GASTRITIS MEDICATION AT HOME. FOLLOW UP WITH GI DOCTOR KEEP HER ENDOSCOPY SCHEDULED. WE WILL ADD MEDICATION FOR UTI AND NAUSEA. PATIENT VSS, NAD, NONTOXIC, STABLE FOR DISCHARGE. PT GIVEN DISCHARGE INSTRUCTIONS IN [place]MAN TERMS AND UNDERSTOOD, ALL QUESTIONS ANSWERED. PT WILL FOLLOW UP WITH PCP AND RETURN TO THE ER IF WORSE. DX & DISP Disposition: Discharge Departure Impression: Primary Impression: Anxiety Additional Impressions: GERD (gastroesophageal reflux disease), UTI (urinary tract infection), Costochondritis, acute Condition: Stable Assign Patient to: FOLLOW-UP WITH YOUR PCP IN 24-72 HOURS AND IN THE EVENT IF SYMPTOMS WORSEN OR AN EMERGENCY OVERNIGHT REPORT TO THE ED IMMEDIATELY Scripts Ondansetron (Ondansetron Odt) 4 Mg Tab.rapdis 1 TAB PO Q6HPRN PRN for nausea/vomiting for 4 Days, #16 TAB 0 Refills Prov: PATSY HANNA NP 01/20/25 Nitrofurantoin Macrocrystal (Macrodantin) 100 Mg Cap 1 CAP PO BID for 7 Days, #14 CAP 0 Refills Prov: PATSY HANNA NP 01/20/25 Referrals: WALTER MARTIN (PCP) I performed a substantive portion of the visit. I have reviewed and personally made and approve the management plan that is documented in the notes by myself with FARIBA/resident. I acknowledged full responsibility for the patient's management plan. PATSY HANNA NP Jan 20, 2025 15:48 KANDY HARTMANN DO Jan 20, 2025 18:24
[2025-01-20 15:54] LABS: CREATININE 1.0 mg/dL (0.5-1.0); GLOMERULAR FILTR. RATE CALC 76.0 mL/min (>90); GLUCOSE,RANDOM 105.0 mg/dL (70-105); SODIUM SERUM 139.0 mmol/L (136-145); UREA NITROGEN, BLOOD 18.0 mg/dL (7-18)
--- NOTE | 2025-01-20 15:56 | HMCIMG ---
EXAM: CR Chest, 1 View. CLINICAL HISTORY: CHEST PAIN COMPARISON: 11/01/24 6:49 EDT CR - CHEST 1VW FINDINGS: LUNGS: There is no mass, infiltrate, or acute pulmonary abnormality. PLEURAL SPACES: No evidence of pleural effusion or pneumothorax. MEDIASTINUM: Cardiac size and mediastinal contours within normal limits. BONES: No aggressive appearing osseous lesion seen. IMPRESSION: No acute cardiopulmonary pathology is evident. /[place]
[2025-01-20] MEDS: 0.9%NACL 1000ML 1,000 ML IV ONE (17:20)
[2025-01-20] MEDS: MAG/ALUM/SIMETH 30 ML UDCUP PO ONE (17:21)
[2025-01-20] MEDS ORDERED: ONDA-243 PO (17:22)
[2025-01-20] MEDS ORDERED: NITR-166 PO (17:22)
[2025-01-20 18:19] VITALS: TEMP 98
--- NOTE | 2025-01-20 19:00 | EKG ---
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
[2025-01-20 19:22] VITALS: BP 121/78; PULSE 65; RESP 18; O2SAT 98
== END 2025-01-20 19:26 | disposition home or self-care (01) ==
LOC: EDH 15:17
DX: F41.9 Anxiety disorder, unspecified (principal); K21.9 Gastro-esophageal reflux disease without esophagitis; N39.0 Urinary tract infection, site not specified; I10 Essential (primary) hypertension; M94.0 Chondrocostal junction syndrome [Tietze]; Z79.899 Other long term (current) drug therapy
CPT/HCPCS: 99285; 96374; 96361; 71045; 96375; 84484; 80048; 85025; 81001; 36415; 93005; J1885; J7030; J2405; J2470

== ENCOUNTER 2025-02-12 08:07 | Emergency (ER) | payer MEDICAID ==
[~2025-02-12] VITALS: Ht 154.9 cm; Wt 90.7 kg
[~2025-02-12 08:07] MED LIST changes: +NITR-166 PO; +ONDA-243 PO
[2025-02-12] MEDS: 0.9%NACL 1000ML 1,000 ML IV ONE (08:20)
[2025-02-12] MEDS: LIDOCAINE HCL 2% VISCOUS 15 ML UDCUP PO ONE (08:20)
[2025-02-12] MEDS: MAG/ALUM/SIMETH 30 ML UDCUP PO ONE (08:20)
--- NOTE | 2025-02-12 08:31 | ERN ---
General Chief Complaint: Abdominal Pain Stated Complaint: ABDOMINAL PAIN Time Seen by MD: 08:09 Source: patient History of Present Illness Initial Comments Patient is a 34-year-old female coming in complaining of abdominal pain. Per patient this abdominal pain has been ongoing for three days. She states he does not have any diarrhea nausea or vomiting the pain is present in the left upper quadrant area. Allergies: Coded Allergies: No Known Allergies (Unverified Allergy, Unknown, 02/07/19) Home Meds Active Scripts Ondansetron (Ondansetron Odt) 4 Mg Tab.rapdis, 1 TAB PO Q6HPRN PRN for nausea/vomiting for 4 Days, #16 TAB 0 Refills Prov:PATSY HANNA NP 01/20/25 Nitrofurantoin Macrocrystal (Macrodantin) 100 Mg Cap, 1 CAP PO BID for 7 Days, #14 CAP 0 Refills Prov:PATSY HANNA NP 01/20/25 Alprazolam (Xanax) 0.25 Mg Tablet, 1 TAB PO [id number] PRN for anxiety for 3 Days, #6 TAB 0 Refills Prov:KEVIN ASTORGA MD 11/15/24 Levofloxacin (Levofloxacin) 500 Mg Tablet, 1 TAB PO DAILY for 7 Days, #7 TAB 0 Refills Prov:FAMILIA RODRIGEZ APRN 11/04/24 Reported Medications Hydroxyzine HCl (Hydroxyzine HCl) 25 Mg Tablet, 25 MG PO HS, TAB 11/02/24 Buspirone HCl (Buspirone HCl) 5 Mg Tablet, 1 TAB PO BID for 30 Days, #60 TAB 0 Refills 11/02/24 Past Medical History Past Medical History: Other Medical History Other: gastritis Past Surgical History: None Family History Family History: Negative Social History Social History: Negative Female( History) History: Not Applicable LMP: Jan 30, 2025 : 3 Para: 3 ROS Dictation CONSTITUTIONAL: No chills, no fever, no weakness, no diaphoresis, no malaise. HEAD/FACE: No signs of trauma. EENT: No eye pain, no blurred vision, no tearing, no double vision, no ear pain, no ear discharge, no nose pain, no nasal congestion, no throat pain, no throat swelling, no mouth pain. RESPIRATORY: No cough, no orthopnea, no SOB, no stridor, no wheezing. CARDIOVASCULAR: No chest pain, no edema, no palpitations, no syncope. GASTROINTESTINAL/ABDOMINAL: abdominal pain, no constipation, no diarrhea, no nausea, no vomiting. GENITOURINARY: No abnormal discharge, no dysuria, no frequent urination, no hematuria. No complaints of pain in the genitals. MUSCULOSKELETAL: No back pain, no gout, no joint pain, no joint swelling, no muscle pain, no muscle stiffness, no neck pain. INTEGUMENTARY: No change in color, no change in hair/nails, no dryness, no lesion, no lumps, no rash. NEUROLOGICAL/PSYCH: No anxiety, not depressed, no emotional problem, no headache, no numbness, no pre-existing deficit, no history of seizures, no tremors, no weakness. HEMATOLOGIC/LYMPHATIC: Not anemic, no history of blood clots, no apparent bleeding, no bruising, glands not swollen. All Systems Negative, Except as Noted. Physical Exam Physical Exam Dictation VITAL SIGNS: Reviewed. GENERAL APPEARANCE: Alert, oriented x3, no acute distress, obese. HEAD AND FACE: Non-traumatic. EYES: PERRL, pink conjunctivas, eyelid no trauma, anterior chamber clear. EARS: Pinnas intact and no signs of trauma or erythema. Ear canals clear and no discharge. TMs no erythema. NOSE: No discharge, no bleeding. OROPHARYNX: Mouth normal, teeth no caries, tongue pink. Pharynx clear, no may thema. Tonsils no exudates, no abscesses noted. Mucous membrane moist. NECK: Supple, non-tender, no thyromegaly, no masses, no JVD, no bruits. BREAST: Deferred. CHEST: No tenderness, no crepitus, no paradoxical movement, no retractions. LUNGS: Clear, well-ventilated, symmetric, no rales, no wheezing, no rhonchi, no stridor, good breath sounds bilaterally. HEART: Regular rate, regular rhythm, no murmur, no gallops. VASCULAR: No peripheral edema. ABDOMEN: Soft, positive bowel sounds, nondistended, no guarding, upper quadrant tenderness, no rebound, no masses no hepatomegaly, no splenomegaly, no Carvajal's sign, no hernias. RECTAL: Deferred. GENITAL: Deferred. NEUROLOGICAL: Normal speech, gross motor function intact, gross sensory function intact. MUSCULOSKELETAL: Neck nontender, full range of motion, back nontender, full range of motion. EXTREMITIES: Nontender, full range of motion. SKIN: Color pink, dry, no turgor, no rash, no lacerations, no abrasions, no contusions. LYMPHATICS: Deferred. Results Laboratory and Microbiology Lab and Micro Result Laboratory Tests Test 02/12/25 08:34 White Blood Count 9.4 K/uL (4.8-10.8) Red Blood Count 5.52 MIL/uL (4.00-5.50) H Hemoglobin 15.8 g/dL (12.0-16.0) Hematocrit 47.3 % (36-48) Mean Corpuscular Volume 85.7 fL (79-99) Mean Corpuscular Hemoglobin 28.6 pg (27.0-33.0) Mean Corpuscular Hemoglobin Concent 33.4 g/dL (32.0-36.0) Red Cell Distribution Width 12.8 % (11.0-15.5) Platelet Count 283 K/uL (130-400) Mean Platelet Volume 9.9 fL (7.5-10.5) Immature Granulocyte % (Auto) 0.3 % (0-1) Neutrophils (%) (Auto) 61.9 % (40.0-77.0) Lymphocytes (%) (Auto) 31.3 % (21.0-51.0) Monocytes (%) (Auto) 4.0 % (3.0-13.0) Eosinophils (%) (Auto) 2.0 % (0.0-8.0) Basophils (%) (Auto) 0.5 % (0.0-5.0) Neutrophils # (Auto) 5.8 K/uL (1.8-7.7) Lymphocytes # (Auto) 3.0 K/uL (1.0-4.8) Monocytes # (Auto) 0.4 K/uL (0.1-1.0) Eosinophils # (Auto) 0.19 K/uL (0.00-0.70) Basophils # (Auto) 0.05 K/uL (0.00-0.20) Absolute Immature Granulocyte (auto 0.03 K/uL (0-1) Nucleated Red Blood Cells 0.0 % (0.0-0.19) Urine Color COLORLESS (YELLOW) Urine Appearance CLEAR (CLEAR) Urine pH 7.0 (5.0-8.0) Urine Specific [place] 1.012 (1.001-1.031) Urine Protein NEGATIVE mg/dL (NEGATIVE) Urine Glucose (UA) NEGATIVE mg/dL (NEGATIVE) Urine Ketones NEGATIVE mg/dL (NEGATIVE) Urine Occult Blood NEGATIVE (NEGATIVE) Urine Nitrate NEGATIVE (NEGATIVE) Urine Bilirubin NEGATIVE mg/dL (NEGATIVE) Urine Urobilinogen 0.2 mg/dL (0.2-1.0) Urine Leukocyte Esterase NEGATIVE Gray/uL Urine HCG, Qualitative NEGATIVE (NEGATIVE) Sodium Level 139 mmol/L (136-145) Potassium Level 3.6 mmol/L (3.5-5.1) Chloride Level 99 mmol/L (101-111) L Carbon Dioxide Level 32 mmol/L (21-32) Blood Urea Nitrogen 13 mg/dL (7-18) Creatinine 0.9 mg/dL (0.5-1.0) Glomerular Filtration Rate Calc 86 mL/min (>90) Random Glucose 107 mg/dL (70-105) H Total Calcium 10.2 mg/dL (8.5-10.1) H Total Bilirubin 0.4 mg/dL (0.2-1.0) Aspartate Amino Transf (AST/SGOT) 21 U/L (10-37) Alanine Aminotransferase (ALT/SGPT) 53 U/L (12-78) Alkaline Phosphatase 85 U/L (50-136) Total Protein 8.1 g/dL (6.0-8.3) Albumin 4.1 g/dL (3.5-5.0) Lipase 33 U/L (16-77) Labs Reviewed?: Yes MDM MDM: Differential diagnosis: GERD, gastritis, IBS Rationale: Tests considered and ordered secondary to shared decision making include: Previous outside records reviewed: Old ER visits. Risk of complication and/or morbidity or mortality of patient management: None Medications-Per medication reconciliation Need for hospitalization: Patient does not meet criteria for hospitalization. Need for emergency major/minor surgery: No Patient is a 34-year-old female coming in complaining of abdominal discomfort. She states that she has been having this is abdominal discomfort already and wheezing being evaluated by resolute professional. Patient received IV Protonix and IV fluids states her symptoms have improved significantly. Patient will be discharged in stable condition with a diagnosis of GERD gastritis. ED Course Orders Procedure Category Date Status Time Cbc With Differential LAB 02/12/25 Complete 08:10 Comprehensive LAB 02/12/25 Complete Metabolic Panel 08:10 ,Urine Test LAB 02/12/25 Complete 08:10 Urinalysis Profile LAB 02/12/25 Complete 08:10 0.9%Nacl 1000ml (Ns PHA 02/12/25 Complete 1000ml) 08:30 Lidocaine Hcl 2% PHA 02/12/25 Complete Viscous (Lidocaine Hcl 08:30 Mag/Alum/Simeth 30ml PHA 02/12/25 Complete (Maalox Plus 30ml) 08:30 Pantoprazole 40mg Inj PHA 02/12/25 Complete (Protonix 40mg Inj 08:30 Lipase LAB 02/12/25 Complete 08:10 Current Medications Medications (Trade) Dose Ordered Sig/Delores Route PRN Reason Start Time Stop Time Status Last Admin Dose Admin Al Hydroxide/Mg Hydroxide (MAALox PLUS 30ML) 30 ml ONCE ONCE PO 02/12/25 08:30 02/12/25 08:31 DC 02/12/25 08:20 Lidocaine HCl (Lidocaine HCl 2% Viscous) 10 ml ONCE ONCE PO 02/12/25 08:30 02/12/25 08:31 DC 02/12/25 08:20 Pantoprazole Sodium (PROTonix 40MG INJ) 40 mg ONCE ONCE IVP 02/12/25 08:30 02/12/25 08:31 DC 02/12/25 08:20 Sodium Chloride 1,000 ml @ 0 mls/hr ONCE ONCE IV 02/12/25 08:30 02/12/25 08:31 DC 02/12/25 08:20 Vital Signs Date Time Temp Pulse Resp B/P (MAP) Pulse Ox O2 Delivery O2 Flow Rate FiO2 02/12/25 09:00 97.7 65 16 131/67 100 Room Air* 0 21 02/12/25 08:12 97.7 71 16 141/90 100 Room Air* 0 21 02/12/25 08:08 97.7 71 16 141/90 100 Room Air 0 DX & DISP Disposition: Discharge Departure Impression: Primary Impression: GERD (gastroesophageal reflux disease) Condition: Stable Scripts Pantoprazole Sodium (Protonix) 40 Mg Ectab 1 TAB PO DAILY for 30 Days, #30 TAB 0 Refills Prov: INNA TYLER MD 02/12/25 Additional Instructions: FOLLOW-UP WITH PRIMARY CARE PROVIDER IN 1 TO 2 DAYS. TAKE MEDICATIONS DIRECTED HERE IN THE EMERGENCY ROOM. OKAY TO CONTINUE HOME MEDICATIONS UNLESS OTHERWISE DISCUSSED DURING YOUR VISIT IN THE EMERGENCY ROOM TODAY. RETURN TO YOUR NEAREST EMERGENCY ROOM IF SYMPTOMS WORSEN OR IF THERE IS NO IMPROVEMENT. CALL 911 IF YOU NEED IMMEDIATE ASSISTANCE. TAKE TYLENOL [id number] NEEDED AND IF NO CONTRAINDICATIONS ARE PRESENT. INCREASE ORAL HYDRATION. A WOUND CULTURE OR URINE CULTURE WAS ORDERED HERE IN THE EMERGENCY ROOM DEPARTMENT PLEASE FOLLOW-UP WITH PRIMARY CARE PROVIDER AND ADVISE THEM TO GET REPORTS FROM OUR FACILITY. IF YOU HAD ANY IRVIN WRAP/SPLINTS THAT WERE APPLIED HERE, PLEASE DO NOT REMOVE THEM UNTIL YOU SEE YOUR PRIMARY CARE OR SPECIALTY. Referrals: Referrals: WALTER MARTIN (PCP) Time of Disposition: 09:20 INNA TYLER MD Feb 12, 2025 08:31
[2025-02-12 08:45] LABS: APPEARANCE,URINE CLEAR (CLEAR); GLUCOSE, URINE (UA) NEGATIVE (NEGATIVE); LEUKOCYTE ESTERASE ,URINE NEGATIVE Leu/uL (NEGATIVE); NITRATE,URINE NEGATIVE (NEGATIVE); OCCULT BLOOD,URINE NEGATIVE (NEGATIVE)
[2025-02-12 08:49] LABS: ADD UA MICROSCOPIC NO
[2025-02-12 08:50] LABS: HCG,QUALITATIVE URINE NEGATIVE (NEGATIVE)
[2025-02-12 08:52] LABS: CREATININE 0.9 mg/dL (0.5-1.0); GLOMERULAR FILTR. RATE CALC 86.0 mL/min (>90); GLUCOSE,RANDOM 107.0 mg/dL (70-105); SODIUM SERUM 139.0 mmol/L (136-145); UREA NITROGEN, BLOOD 13.0 mg/dL (7-18)
[2025-02-12 08:56] LABS: ASPARTATE AMINOTRANSFERASE 21.0 U/L (10-37); TOTAL PROTEIN, SERUM 8.1 g/dL (6.0-8.3)
[2025-02-12 09:04] LABS: IMMATURE GRANULOCYTE ABSOLUTE 0.03 K/uL (0-1); NUCLEATED RED BLOOD CELLS 0.0 % (0.0-0.19); PLATELET COUNT (AUTO) 283 K/uL (130-400); RED BLOOD CELL COUNT(AUTO) 5.52 MIL/uL (4.00-5.50); RED CELL DISTRIBUTION WIDTH 12.8 % (11.0-15.5); WHITE BLOOD COUNT (AUTO) 9.4 K/uL (4.8-10.8)
[2025-02-12] MEDS ORDERED: PANT40TA55 PO (09:20)
[2025-02-12 10:00] VITALS: BP 128/80; PULSE 60; RESP 16; TEMP 97.7; O2SAT 98
== END 2025-02-12 10:31 | disposition home or self-care (01) ==
LOC: EDH 08:07
DX: K21.9 Gastro-esophageal reflux disease without esophagitis (principal); Z79.899 Other long term (current) drug therapy
CPT/HCPCS: 99283; 96374; 96361; 80053; 83690; 85025; 81003; 81025; 36415; J7030; J2470

== ENCOUNTER 2025-03-05 01:14 | Emergency (ER) | payer MEDICAID ==
[~2025-03-05] VITALS: Ht 154.9 cm; Wt 90.7 kg
[~2025-03-05 01:14] MED LIST changes: +PANT40TA55 PO
--- NOTE | 2025-03-05 01:31 | ERN ---
ED Note History of Present Illness Stated Complaint: HEADACHE Chief Complaint: Headache Time Seen by MD: 01:16 Dictation: 34-YEAR-OLD FEMALE PRESENTS TO ER COMPLAINTS OF SINUS PRESSURE AND HEADACHE. PATIENT STATES SHE HAS ON HER LAST PILL OF A Z-MARGARITA THAT WAS SENT IN BY HER PCP. PATIENT STATES HER SICK KIDS HAVE BEEN SICK AT HOME. PATIENT WAS TOLD BY PCP THAT HER WHITE COUNT WAS ELEVATED AND IF SHE WAS NOT BETTER TO COME TO ER. PATIENT DENIES ANY FEVER, SHORTNESS OF BREATH. PATIENT STATES SHE HAS HISTORY OF SILENT PNEUMONIA Allergies: Coded Allergies: No Known Allergies (Unverified Allergy, Unknown, 02/07/19) Home Meds Active Scripts P-Ephed HCl/Cetirizine HCl (Zyrtec-D 12 Hr) 5 Mg-120 Mg Srtab, 1 TAB PO BID for NASAL CONGESTION, #15 TAB 0 Refills Prov:PATSY HANNA NP 03/05/25 Amoxicillin/Potassium Clav (Amox Tr-K Clv 875-125 mg Tab) 875 Mg-125 Mg Tablet, 1 TAB PO BID for 10 Days, #20 TAB 0 Refills Prov:PATSY HANNA NP 03/05/25 Pantoprazole Sodium (Protonix) 40 Mg Ectab, 1 TAB PO DAILY for 30 Days, #30 TAB 0 Refills Prov:INNA TYLER MD 02/12/25 Ondansetron (Ondansetron Odt) 4 Mg Tab.rapdis, 1 TAB PO Q6HPRN PRN for nausea/vomiting for 4 Days, #16 TAB 0 Refills Prov:PATSY HANNA NP 01/20/25 Nitrofurantoin Macrocrystal (Macrodantin) 100 Mg Cap, 1 CAP PO BID for 7 Days, #14 CAP 0 Refills Prov:PATSY HANNA NP 01/20/25 Alprazolam (Xanax) 0.25 Mg Tablet, 1 TAB PO [id number] PRN for anxiety for 3 Days, #6 TAB 0 Refills Prov:KEVNI ASTORGA MD 11/15/24 Levofloxacin (Levofloxacin) 500 Mg Tablet, 1 TAB PO DAILY for 7 Days, #7 TAB 0 Refills Prov:FAMILIA RODRIGEZ APRN 11/04/24 Reported Medications Hydroxyzine HCl (Hydroxyzine HCl) 25 Mg Tablet, 25 MG PO HS, TAB 11/02/24 Buspirone HCl (Buspirone HCl) 5 Mg Tablet, 1 TAB PO BID for 30 Days, #60 TAB 0 Refills 11/02/24 Past Medical History Past Medical History: Anxiety, GERD Additional Past Medical Hx: gastritis Surgical History: None Family History: Negative Social History: Negative History: Not Applicable : 3 Para: 3 Review of System Dictation CONSTITUTIONAL: NEGATIVE FOR FEVER,CHILLS, AND WEIGHT LOSS EYES: NEGATIVE FOR INJURY, PAIN,REDNESS, AND DISCHARGE ENT: POSITIVE FOR SINUS PRESSURE AND PAIN CARDIOVASCULAR: NEGATIVE FOR CHEST PAIN, PALPITATIONS, AND EDEMA RESPIRATORY: NEGATIVE FOR SHORTNESS OF BREATH, COUGH, WHEEZING, AND PLEURITIC CHEST PAIN ABDOMEN/GI: NEGATIVE FOR ABDOMINAL PAIN, NAUSEA, VOMITING AND DIARRHEA. BACK: NEGATIVE FOR PAIN OR INJURY : NEGATIVE FOR INJURY, BLEEDING AND DISCHARGE MS/EXTREMITY: NEGATIVE FOR INJURY AND DEFORMITY SKIN: NEGATIVE FOR RASH, AND DISCOLORATION NEURO: NEGATIVE FOR WEAKNESS, NUMBNESS, TINGLING, AND SEIZURE. POSITIVE FOR HEADACHE PSYCH: NEGATIVE FOR SUICIDE IDEATION, HOMICIDAL IDEATION, AND HALLUCINATIONS ALLERGY/IMMUNOLOGY: NEGATIVE FOR HIVES, RASH, AND ALLERGIES ALL SYSTEMS NEGATIVE, EXCEPT NOTED ABOVE. 13 POINT REVIEW OF SYSTEMS ASSESSED AND ALL NEGATIVE EXCEPT FOR ABOVE. Initial Vital Sign VS Vital Signs Date Time Temp Pulse Resp B/P (MAP) Pulse Ox O2 Delivery O2 Flow Rate FiO2 03/05/25 01:16 98.4 84 18 143/86 99 Room Air 0 03/05/25 01:19 21 Physical Exam Dictation GENERAL: AWAKE, ALERT, NAD HEAD/FACE: NORMOCEPHALIC, ATRAUMATIC EYES: PERRL, EOMI, VISION AT BASELINE ENT: ORAL CAVITY CLEAR, TMS CLEAR, POSITIVE FRONTAL SINUS PRESSURE PAIN NECK: TRACHEA MIDLINE, SUPPLE, NO NUCHAL RIGIDITY CARDIOVASCULAR: RRR, NORMAL NO JVD RESPIRATORY: CTAB, NO RESPIRATORY DISTRESS, NO RALES OR WHEEZES ABDOMEN: SOFT, NON-TENDER, NON-DISTENDED, NORMAL BOWEL SOUNDS, NO GUARDING OR REBOUND. SKIN: WARM, DRY, NORMAL TURGOR, NO RASH MS/EXTREMITY: PULSES EQUAL, NO CYANOSIS, NEUROVASCULAR INTACT, FROM NEURO: COAX4, GCS 15, STRENGTH 5/5, CN 2-12 INTACT, NORMAL CEREBELLAR EXAM, NORMAL GAIT, PSYCH: NORMAL BEHAVIOR, MOOD, AND AFFECT NORMAL Results (Laboratory/Radiology) Laboratory/Radiology Laboratory Tests Test 03/05/25 01:30 Influenza Type A Antigen Negative For Type A Influenza Type B Antigen Negative For Type B SARS-CoV-2 Antigen (Rapid) PRESUMPTIVE NEGATIVE ED Course ED Course Orders Procedure Category Date Status Time Covid19 (Sars Antigen LAB 03/05/25 Complete Rapid) 01:27 Influenza Type A & B, LAB 03/05/25 Complete Rapid 01:27 Chest 1vw RAD 03/05/25 Resulted 01:27 Ceftriaxone 1g Vial PHA 03/05/25 Complete (Rocephine 1g Inj) 02:00 Current Medications Medications (Trade) Dose Ordered Sig/Delores Route PRN Reason Start Time Stop Time Status Last Admin Dose Admin Ceftriaxone Sodium (ROCEphine 1G INJ) 1 gm ONCE ONCE IM 03/05/25 02:00 03/05/25 02:01 DC 03/05/25 02:39 Vital Signs Date Time Temp Pulse Resp B/P (MAP) Pulse Ox O2 Delivery O2 Flow Rate FiO2 03/05/25 02:31 98.2 74 20 142/74 99 Room Air* 0 21 03/05/25 01:19 98.1 79 18 153/84 98 Room Air* 0 21 03/05/25 01:16 98.4 84 18 143/86 99 Room Air 0 Medical Decision Making MDM MDM: DIFFERENTIAL DIAGNOSIS: PNEUMONIA, SINUSITIS, UPPER RESPIRATORY INFECTION RATIONALE: TESTS CONSIDERED AND ORDERED SECONDARY TO SHARED DECISION MAKING INCLUDE: LABS, ECG AND RADIOLOGY PREVIOUS OUTSIDE RECORDS REVIEWED: OLD ER VISITS. RISK OF COMPLICATION AND/OR MORBIDITY OR MORTALITY OF PATIENT MANAGEMENT: NONE MEDICATIONS-PER MEDICATION RECONCILIATION NEED FOR HOSPITALIZATION: PATIENT DOES NOT MEET CRITERIA FOR HOSPITALIZATION. NEED FOR EMERGENCY MAJOR/MINOR SURGERY: NO THERE ARE NO SOCIAL CONCERNS WITH THIS PATIENT. PRESCRIPTION DRUG MANAGEMENT PRESCRIPTIONS WILL INCLUDE SYMPTOMATIC CARE PATIENT'S PRIOR EXTERNAL MEDICAL RECORDS FROM OTHER ER VISITS WERE REVIEWED BY ME INDICATED. PRIOR TESTING AND RESULTS FROM PREVIOUS VISITS WERE REVIEWED. PRIOR TESTS WERE TAKEN INTO ACCOUNT WITH MEDICAL DECISION MAKING AND RESOURCE UTILIZATION, INDEPENDENT HISTORIAN/HISTORIANS WERE USED TO OBTAIN COMPLETE MEDICAL HISTORY. I INDEPENDENTLY INTERPRETED THE TEST THAT WERE PERFORMED, RESULTS WERE REVIEWED BY ME AND CONSIDERED FINDINGS ON RADIOLOGY IF ORDERED. PATIENT VSS, NAD, NONTOXIC, STABLE FOR DISCHARGE. PT GIVEN DISCHARGE INSTRUCTIONS IN LAYMAN TERMS AND UNDERSTOOD, ALL QUESTIONS ANSWERED. PT WILL FOLLOW UP WITH PCP AND RETURN TO THE ER IF WORSE. DX & DISP Disposition: Discharge Departure Impression: Primary Impression: Sinusitis Additional Impressions: Pneumonia, Headache Condition: Stable Scripts P-Ephed HCl/Cetirizine HCl (Zyrtec-D 12 Hr) 5 Mg-120 Mg Srtab 1 TAB PO BID for NASAL CONGESTION, #15 TAB 0 Refills Prov: PATSY HANNA NP 03/05/25 Amoxicillin/Potassium Clav (Amox Tr-K Clv 875-125 mg Tab) 875 Mg-125 Mg Tablet 1 TAB PO BID for 10 Days, #20 TAB 0 Refills Prov: PATSY HANNA NP 03/05/25 Referrals: WALTER MARTIN (PCP) ATTESTATION BY PHYSICIAN I PERFORMED THE SUBSTANTIVE PORTION OF THE VISIT. I HAVE REVIEWED AND PERSONALLY MADE AND APPROVED THE MANAGEMENT PLAN THAT IS DOCUMENTED IN THE NOTE BY MYSELF FOR THE A PP. PATSY HANNA NP Mar 05, 2025 01:31 INNA TYLER MD Mar 05, 2025 19:28
[2025-03-05 01:57] LABS: COVID19 (SARS ANTIGEN RAPID) PRESUMPTIVE NEGATIVE (NEGATIVE); INFLUENZA TYPE A Negative For Type A (NEGATIVE); INFLUENZA TYPE B Negative For Type B (NEGATIVE)
[2025-03-05] MEDS ORDERED: AMOX1TAB16 PO (02:05)
[2025-03-05] MEDS ORDERED: ZYRTD PO (02:05)
[2025-03-05 02:31] VITALS: BP 142/74; PULSE 74; RESP 20; TEMP 98.2; O2SAT 99
--- NOTE | 2025-03-05 03:21 | HMCIMG ---
EXAM: CR Chest, 1 view CLINICAL HISTORY: Cough. COMPARISON: Chest radiograph dated 01/20/2025. FINDINGS: Mild subsegmental atelectasis around the right lung base. The lungs show no infiltrates or other acute findings. No pleural effusion or pneumothorax. The cardiomediastinal silhouette is within normal limits. No acute osseous abnormality. IMPRESSION: No acute cardiopulmonary process is evident. Mild subsegmental atelectasis around the right lung base. A new finding. /David
== END 2025-03-05 02:29 | disposition home or self-care (01) ==
LOC: EDH 01:14
DX: J32.9 Chronic sinusitis, unspecified (principal); J18.9 Pneumonia, unspecified organism; R51.9 Headache, unspecified; F41.9 Anxiety disorder, unspecified; Z79.899 Other long term (current) drug therapy; Z20.822 Contact with and (suspected) exposure to COVID-19
CPT/HCPCS: 99284; 71045; 87426; 87804 ×2; 96372; J0696; 71046

== ENCOUNTER 2025-04-26 20:23 | Emergency (ER) | payer MEDICAID ==
[~2025-04-26] VITALS: Ht 154.9 cm; Wt 90.7 kg
[~2025-04-26 20:23] MED LIST changes: +AMOX1TAB16 PO; +NITR-108 PO; -NITR-166 PO; +ZYRTD PO
[2025-04-26 20:25] VITALS: TEMP 98.8
[2025-04-26] MEDS: BENZONATATE 100 MG CAPSULE PO ONE (20:53)
[2025-04-26 21:02] LABS: RAPID GROUP A STREP negative (NEGATIVE); SARS-CoV-2, RNA, NAAT NEGATIVE SARS CoV-2 (NEGATIVE)
[2025-04-26 21:10] LABS: INFLUENZA TYPE A Negative For Type A (NEGATIVE); INFLUENZA TYPE B Negative For Type B (NEGATIVE)
--- NOTE | 2025-04-26 21:23 | ERN ---
ED Note History of Present Illness Stated Complaint: COUGH, BACK PAIN Chief Complaint: Multiple Complaints Time Seen by MD: 20:26 Time Seen by Midlevel: 20:30 Dictation: 34-year-old female coming in complaining of cough and back pain. Patient states this has been going on today. Patient states she has a history of pneumonia. Patient states her kids has been sick, she took him to the PCP last week and states to the PCP also gave her a prescription for Tamiflu . Denies having any fever, nausea or vomiting. Allergies: Coded Allergies: No Known Allergies (Unverified Allergy, Unknown, 02/07/19) Home Meds Active Scripts P-Ephed HCl/Cetirizine HCl (Zyrtec-D 12 Hr) 5 Mg-120 Mg Srtab, 1 TAB PO BID for NASAL CONGESTION, #15 TAB 0 Refills Prov:PATSY HANNA [facility] 03/05/25 Amoxicillin/Potassium Clav (Amox Tr-K Clv 875-125 mg Tab) 875 Mg-125 Mg Tablet, 1 TAB PO BID for 10 Days, #20 TAB 0 Refills Prov:PATSY HANNA [facility] 03/05/25 Pantoprazole Sodium (Protonix) 40 Mg Ectab, 1 TAB PO DAILY for 30 Days, #30 TAB 0 Refills Prov:INNA TYLER MD 02/12/25 Ondansetron (Ondansetron Odt) 4 Mg Tab.rapdis, 1 TAB PO Q6HPRN PRN for nausea/vomiting for 4 Days, #16 TAB 0 Refills Prov:PATSY HANNA [facility] 01/20/25 Nitrofurantoin Macrocrystal (Macrodantin) 100 Mg Cap, 1 CAP PO BID for 7 Days, #14 CAP 0 Refills Prov:PATSY HANNA [facility] 01/20/25 Alprazolam (Xanax) 0.25 Mg Tablet, 1 TAB PO [id number] PRN for anxiety for 3 Days, #6 TAB 0 Refills Prov:KEVIN ASTORGA MD 11/15/24 Levofloxacin (Levofloxacin) 500 Mg Tablet, 1 TAB PO DAILY for 7 Days, #7 TAB 0 Refills Prov:FAMILIA RODRIGEZ [facility] 11/04/24 Reported Medications Hydroxyzine HCl (Hydroxyzine HCl) 25 Mg Tablet, 25 MG PO HS, TAB 11/02/24 Buspirone HCl (Buspirone HCl) 5 Mg Tablet, 1 TAB PO BID for 30 Days, #60 TAB 0 Refills 11/02/24 Past Medical History Past Medical History: Anxiety, GERD, Pneumonia, Other Additional Past Medical Hx: gastritis Surgical History: None Family History: Negative Social History: Negative History: Not Applicable : 3 Para: 3 Review of System Dictation Constitutional: Negative for fever,chills, and weight loss Eyes: Negative for injury, pain,redness, and discharge ENT: Negative for injury,pain or swelling Cardiovascular: Negative for chest pain, palpitations, and edema Respiratory: Complaining of cough Abdomen/GI: Negative for abdominal pain, nausea, vomiting, diarrhea, and constipation Back: Negative for injury and pain : Negative for injury, bleeding and discharge MS/Extremity: Negative for injury and deformity Skin: Negative for rash, and discoloration Neuro: Negative for headache, weakness, numbness, tingling, and seizure Psych: Negative for suicide ideation, homicidal ideation, and hallucinations Review of Systems: was completed Initial Vital Sign VS Vital Signs Date Time Temp Pulse Resp B/P (MAP) Pulse Ox O2 Delivery O2 Flow Rate FiO2 04/26/25 20:25 98.8 99 20 139/83 100 Room Air 04/26/25 21:29 0 21 Physical Exam Dictation General: awake, alert, NAD Head/Face: Normocephalic, atraumatic Eyes: PERRL, EOMI, vision at baseline ENT: oral cavity clear, TMs clear, no signs of infection Neck: Trachea midline, supple, no nuchal rigidity Cardiovascular: RRR, normal S1/S2, No MRGs, no JVD Respiratory: CTAB, no respiratory distress, No rales or wheezes Abdomen: Soft, non-tender, non-distended, normal bowel sounds, no guarding or rebound. Skin: Warm, dry, normal turgor, no rash MS/Extremity: Pulses equal, no cyanosis, neurovascular intact, FROM Neuro: COAx4, GCS 15, strength 5/5, CN 2-12 intact, normal cerebellar exam, normal gait, Psych: Normal behavior, mood, and affect normal Results (Laboratory/Radiology) Laboratory/Radiology Laboratory Tests Test 04/26/25 20:43 04/26/25 20:46 04/26/25 21:13 Influenza Type A Antigen Negative For Type A Influenza Type B Antigen Negative For Type B SARS-CoV-2, RNA, NAAT NEGATIVE SARS CoV-2 Group A Streptococcus Rapid negative (NEGATIVE) Urine HCG, Qualitative NEGATIVE (NEGATIVE) White Blood Count 10.8 K/uL (4.8-10.8) Red Blood Count 4.87 MIL/uL (4.00-5.50) Hemoglobin 14.1 g/dL (12.0-16.0) Hematocrit 40.6 % (36-48) Mean Corpuscular Volume 83.4 fL (79-99) Mean Corpuscular Hemoglobin 29.0 pg (27.0-33.0) Mean Corpuscular Hemoglobin Concent 34.7 g/dL (32.0-36.0) Red Cell Distribution Width 13.2 % (11.0-15.5) Platelet Count 230 K/uL (130-400) Mean Platelet Volume 9.4 fL (7.5-10.5) Immature Granulocyte % (Auto) 0.3 % (0-1) Neutrophils (%) (Auto) 57.0 % (40.0-77.0) Lymphocytes (%) (Auto) 30.4 % (21.0-51.0) Monocytes (%) (Auto) 8.0 % (3.0-13.0) Eosinophils (%) (Auto) 3.8 % (0.0-8.0) Basophils (%) (Auto) 0.5 % (0.0-5.0) Neutrophils # (Auto) 6.2 K/uL (1.8-7.7) Lymphocytes # (Auto) 3.3 K/uL (1.0-4.8) Monocytes # (Auto) 0.9 K/uL (0.1-1.0) Eosinophils # (Auto) 0.41 K/uL (0.00-0.70) Basophils # (Auto) 0.05 K/uL (0.00-0.20) Absolute Immature Granulocyte (auto 0.03 K/uL (0-1) Nucleated Red Blood Cells 0.0 % (0.0-0.19) Sodium Level 136 mmol/L (136-145) Potassium Level 3.4 mmol/L (3.5-5.1) L Chloride Level 102 mmol/L (101-111) Carbon Dioxide Level 26 mmol/L (21-32) Blood Urea Nitrogen 15 mg/dL (7-18) Creatinine 1.0 mg/dL (0.5-1.0) Glomerular Filtration Rate Calc 76 mL/min (>90) Random Glucose 101 mg/dL (70-105) Total Calcium 9.0 mg/dL (8.5-10.1) Labs Reviewed?: Yes ED Course ED Course Orders Procedure Category Date Status Time Chest 1vw RAD 04/26/25 Taken 20:35 Influenza Type A & B, LAB 04/26/25 Complete Rapid 20:35 Covid Rna Naat LAB 04/26/25 Complete 20:35 Rapid (Group A Strep) LAB 04/26/25 Complete 20:35 Benzonatate 100 Mg PHA 04/26/25 Complete Capsule (Tessalon 100 21:00 Ketorolac PHA 04/26/25 Complete Tromethamine 15mg/Ml 21:00 ,Urine Test LAB 04/26/25 Complete 20:44 Cbc With Differential LAB 04/26/25 Complete 21:07 Basic Metabolic Panel LAB 04/26/25 Complete 21:07 Ceftriaxone 1g Vial PHA 04/26/25 Complete (Rocephine 1g Inj) 21:46 Current Medications Medications (Trade) Dose Ordered Sig/Delores Route PRN Reason Start Time Stop Time Status Last Admin Dose Admin Benzonatate (Tessalon 100mg Caps) 200 mg ONCE ONCE PO 04/26/25 21:00 04/26/25 21:01 DC 04/26/25 20:53 Ceftriaxone Sodium (ROCEphine 1G INJ) 1 gm ONCE STAT IM 04/26/25 21:46 04/26/25 21:47 Ketorolac Tromethamine (toRADol) 15 mg ONCE ONCE IM 04/26/25 21:00 04/26/25 21:01 DC 04/26/25 20:53 Vital Signs Date Time Temp Pulse Resp B/P (MAP) Pulse Ox O2 Delivery O2 Flow Rate FiO2 04/26/25 21:29 87 18 150/85 99 Room Air* 0 21 04/26/25 20:25 98.8 99 20 139/83 100 Room Air Medical Decision Making MDM MDM: 34-year-old female coming in complaining of cough and back pain. Patient states this has been going on today. Patient states she has a history of pneumonia. Patient states her kids has been sick, she took him to the PCP last week and states to the PCP also gave her a prescription for Tamiflu . Denies having any fever, nausea or vomiting. Swabs are negative for COVID, flu, strep. Blood work is unremarkable. Chest x-ray my show a early pneumonia to the left lower low. Patient given Rocephin here and be discharged on azithromycin. Discussed with the patient on signs and symptoms of when to return back to the ER. Patient verbalized understanding, answered all questions. Differential diagnosis: Viral syndrome, bronchitis, pneumonia Rationale: Tests considered and ordered secondary to shared decision making include: Previous outside records reviewed: Old ER visits. Risk of complication and/or morbidity or mortality of patient management: None Medications-Per medication reconciliation Need for hospitalization: Patient does not meet criteria for hospitalization. Need for emergency major/minor surgery: No There are no social concerns with this patient. Prescription drug management Prescriptions will include symptomatic care Patient's prior external medical records from other ER visits were reviewed by me as indicated. Prior testing and results from previous visits were reviewed. Prior tests were taken into account with medical decision making and resource utilization, independent historian/historians were used to obtain complete medical history. I independently interpreted the test that were performed, results were reviewed by me and considered findings on radiology if ordered. Medical management and examination interpretation discussions were had by me with other qualified healthcare professionals as indicated for the patient's care. DX & DISP Disposition: Discharge Departure Impression: Primary Impression: Pneumonia Condition: Stable Scripts Azithromycin (Azithromycin) 500 Mg Tablet 1 TAB PO DAILY for 7 Days, #5 TAB 0 Refills Prov: PK MILLER CNP 04/26/25 Additional Instructions: take ABX as prescribed. Follow up with PCP in 1-2 days. return to er if symptoms worsen. Referrals: WALTER MARTIN (PCP) Time of Disposition: 21:54 I have reviewed the case, and I agree with, Diagnosis and Plan PK MILLER CNP Apr 26, 2025 21:23
[2025-04-26 21:25] LABS: IMMATURE GRANULOCYTE ABSOLUTE 0.03 K/uL (0-1); NUCLEATED RED BLOOD CELLS 0.0 % (0.0-0.19); PLATELET COUNT (AUTO) 230 K/uL (130-400); RED BLOOD CELL COUNT(AUTO) 4.87 MIL/uL (4.00-5.50); RED CELL DISTRIBUTION WIDTH 13.2 % (11.0-15.5); WHITE BLOOD COUNT (AUTO) 10.8 K/uL (4.8-10.8)
[2025-04-26 21:29] VITALS: BP 150/85; PULSE 87; RESP 18; O2SAT 99
[2025-04-26 21:35] LABS: CREATININE 1.0 mg/dL (0.5-1.0); GLOMERULAR FILTR. RATE CALC 76.0 mL/min (>90); GLUCOSE,RANDOM 101.0 mg/dL (70-105); SODIUM SERUM 136.0 mmol/L (136-145); UREA NITROGEN, BLOOD 15.0 mg/dL (7-18)
[2025-04-26] MEDS ORDERED: AZIT500T4 PO (21:55)
--- NOTE | 2025-04-26 22:20 | HMCIMG ---
EXAM: CR Chest, 1 View. CLINICAL HISTORY: cough COMPARISON: None provided. FINDINGS: LUNGS: There is no mass, infiltrate, or acute pulmonary abnormality. PLEURAL SPACES: No evidence of pleural effusion or pneumothorax. MEDIASTINUM: The cardiomediastinal silhouette is within normal limits. BONES: No aggressive appearing osseous lesion seen. IMPRESSION: No acute cardiopulmonary pathology is evident. /Latta
== END 2025-04-26 22:16 | disposition home or self-care (01) ==
LOC: EDH 20:23
DX: J18.9 Pneumonia, unspecified organism (principal); F41.9 Anxiety disorder, unspecified; K21.9 Gastro-esophageal reflux disease without esophagitis; Z79.899 Other long term (current) drug therapy; Z87.01 Personal history of pneumonia (recurrent); Z87.19 Personal history of other diseases of the digestive system; Z20.822 Contact with and (suspected) exposure to COVID-19
CPT/HCPCS: 99284; 71045; 87635; 80048; 85025; 87880; 87804 ×2; 81025; 36415; 96372 ×2; J1885; J0696